=== PATIENT | female | born 1965 | race Caucasian/White ===

== ENCOUNTER 2024-11-06 16:01 | Emergency (ER) | payer BC, SELFPAY ==
--- NOTE | 2024-11-06 16:07 | ED.FEMALEGU ---
HPI - Female Genitourinary General Chief complaint: Urogenital-Female Stated complaint: possible UTI Time Seen by Provider: 11/06/24 16:20 Source: patient Mode of arrival: ambulatory Limitations: no limitations History of Present Illness HPI Narrative: Nany is 59-year-old female patient presenting to the clinic today with complaints of possible urinary tract infection. She reports her symptoms started this morning with some lower abdominal pressure/pain. States she then developed some urinary burning and urinary frequency. Denies any fevers, chills, or body aches. Does report some low back aching. Related Data Home Medications ?Medication ?Instructions ?Recorded ?Confirmed ?Last Taken ?Type amiodarone 200 mg tablet mg 11/06/24 Unknown History amlodipine 5 mg tablet mg 11/06/24 Unknown History apixaban 5 mg tablet (Eliquis) mg 11/06/24 Unknown History atorvastatin 80 mg tablet mg 11/06/24 Unknown History escitalopram oxalate 10 mg tablet mg 11/06/24 Unknown History furosemide 40 mg tablet mg 11/06/24 Unknown History glipizide 5 mg tablet, extended mg PO 11/06/24 Unknown History release 24 hr insulin glargine U-300 conc 300 unit subcut 11/06/24 Unknown History unit/mL (3 mL) subcutaneous pen (Toujeo Max U-300 SoloStar) metformin 500 mg tablet,extended mg PO 11/06/24 Unknown History release 24 hr metoprolol tartrate 25 mg tablet mg 11/06/24 Unknown History Allergies Allergy/AdvReac Type Severity Reaction Status Date / Time No Known Allergies Allergy Verified 11/06/24 16:19 Review of Systems Review of Systems: Pertinent positives per HPI. Patient denies any fever, chills, rash, headache, visual changes, dizziness, cough, runny nose, sore throat, shortness of breath, chest pain, palpitations, nausea, vomiting, diarrhea, constipation, abdominal pain, or any urinary issues. PMFSH Comments At the time of my signature, I reviewed and agree with the nursing past medical, surgical, social, and family history. There is no relevant family history pertinent to the patient complaint. Exam Narrative: General: Well-developed, obese, in no apparent distress. Head: Normocephalic, atraumatic. Cardio: Regular rate and rhythm, s1 and s2 normal, no murmur appreciated. Resp: Clear to auscultation bilaterally, no rhonchi, rales, wheezing or rubs. Abdomen: Soft, pliable, bowel sounds present in all quadrants, tender to palpation over the suprapubic bladder, no organomegly, no CVAT tenderness. Course Course Emergency Course: Portions of this record may have been created with voice recognition software. Level of Care: Express Care Visit Vital Signs Vital signs: Vital Signs Temperature 36.7 C 11/06/24 16:14 Pulse Rate 66 11/06/24 16:14 Respiratory Rate 18 11/06/24 16:14 Blood Pressure 166/82 H 11/06/24 16:14 Pulse Oximetry 97 11/06/24 16:14 Oxygen Delivery Room Air 11/06/24 16:14 Temperature 36.7 C 11/06/24 16:14 Pulse Rate 66 11/06/24 16:14 Respiratory Rate 18 11/06/24 16:14 Blood Pressure 166/82 H 11/06/24 16:14 Pulse Oximetry 97 11/06/24 16:14 Oxygen Delivery Room Air 11/06/24 16:14 Vital signs reviewed MDM - Female Genitourinary MDM Narrative Medical decision making narrative: At the time of visit patient is resting comfortably on the exam table. Patient appears to be nontoxic. Labs: UA positive for leukocytes, protein, blood, and glucose. We will send urine for culture Plan: I suspect patient has a urinary tract infection. Prescription for Bactrim was sent to the pharmacy. Supportive measures were discussed with the patient and they voiced understanding discharge instructions and agrees to treatment plan. Return precautions reviewed Differential Diagnosis Differential diagnosis: Likely urinary tract infection and cystitis Lab Data Labs: Lab Results 11/06/24 Range/Units 16:25 POC Urine Color Yellow POC Urine Clarity Cloudy POC Urine pH 6.0 POC Ur Specif Elkins 1.030 POC Urine Protein 3+ (Negative) POC Ur Glucose (UA) 1+ (Negative) POC Urine Ketones Negative (Negative) POC Urine Blood 2+ (Negative) POC Urine Nitrite Negative (Negative) POC Urine Bilirubin Negative (Negative) POC Urine Urobilinogen 0.2 POC U Leukocyte Esteras 1+ (Negative) Discharge Plan Discharge Clinical Impression: Urinary tract infection Qualifiers: Urinary tract infection type: acute cystitis Hematuria presence: with hematuria Qualified Code(s): N30.01 - Acute cystitis with hematuria Patient Disposition: Home, Self-Care Condition: Stable Instructions: Antibiotic Form, Urinary Tract Infection in Women (ED) Additional Instructions: Urinalysis positive for bacteria, blood, protein, glucose. We will send urine for culture. Take Bactrim as prescribed Increase fluids and stay well hydrated Wipe front to back. May use wet wipes. Avoid tub baths If sexually active- pee before and after intercourse. Wear cotton panties Avoid tight clothing up against the genitals Follow up with your PCP in 1 week if symptoms persist. Patient Language: Icelandic Prescriptions: New sulfamethoxazole-trimethoprim [Bactrim DS] 800-160 mg tablet 1 tablet PO Q12H 7 Days Qty: 14 0RF No Action furosemide 40 mg tablet atorvastatin 80 mg tablet amiodarone 200 mg tablet glipizide 5 mg tablet extended release 24hr PO amlodipine 5 mg tablet metformin 500 mg tablet extended release 24 hr PO escitalopram oxalate 10 mg tablet metoprolol tartrate 25 mg tablet Eliquis 5 mg tablet insulin glargine U-300 conc [Toujeo Max U-300 SoloStar] 300 unit/mL (3 mL) insulin pen SUBCUT Follow-up/Referrals: Danny,MIKKI Luo [Primary Care Provider] - Time of Disposition: 16:27 Quality NIHSS Nursing Documentation ED NIHSS nursing documentation: reviewed/agree
[2024-11-06 16:14] VITALS: BP 166/82; PULSE 66; RESP 18; TEMP 36.7; O2SAT 97
[2024-11-06 16:26] LABS: EDUAAPPEAR Cloudy; EDUABILI Negative (Negative); EDUABLOOD 2+ (Negative); EDUACOLOR1 Yellow; EDUAGLUCOSE 1+ (Negative); EDUAKETONE Negative (Negative); EDUALEUKO 1+ (Negative); EDUANITRATE Negative (Negative); EDUAPROTEIN 3+ (Negative); EDUAUROBILI 0.2
--- OUTSIDE RECORDS SUMMARY | 2024-11-06 16:52 | XMS_ITS | Encounter Summary ---
Author Organization [facility] Address [address] [place] [address] Phone Care Team Providers Care Surg Rn Name Role Phone Sammi Meadows APRN, CNP Primary Care Provid er Ileana Caceres MD Unavailable [phone] Flakito Carr MD Unavailable [phone] Sammi Meadows APRN, CNP Primary Care Provid er Encounter Details Date Type Department Care Team (Late st Contact Info) Description 12/01/2020 Telephone [facility] [address] [place] [address] Flakito Carr MD [address] [address] Social History Tobacco Use Types Packs/Day Years Used Date Smoking Tobacco: Never Smokeless Tobacco: Never Alcohol Use Standard Drinks/Week Comments Yes 0 (1 standard drink = 0.6 oz pur e alcohol) 1x a month PHQ-2 Answer Date Recorded Total Score - Questions 1-9 1 04/2021 Education Answer Date Recorded What is the highest level of school you have completed or the highest degree you have received? 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 Erwin to be seen at the [place] office. documented in this encounter Plan of Treatment Not on file documented as of this encounter Visit Diagnoses Not on filedocumented in this encounter Additional Health Concerns Assessment Noted Time PHQ-9 Depression Total Score: 1 09/10/19 21 10:13 AM MARKETING/SALES PERSON documented as of this encounter Care Teams Surg Rn Relationship Specialty Start Date End Date Sammi Meadows APRN REDUCER PCP - General Advanced Practice Nurse 08/25/20 02/03/22 Sammi Meadows APRN REDUCER [address] [place] [address] PCP - General Advanced Practice Nurse 03/15/22 Ileana Caceres MD [address] [address] Referring Provider Colon & Rectal Surgery 08/25/20 Flakito Carr MD [address] [place] [id number] Consulting Physician Oncology 08/25/20 documented as of this encounter
--- OUTSIDE RECORDS SUMMARY | 2024-11-06 16:52 | XMS_ITS | Encounter Summary ---
Author Organization [facility] Address [address] [place] [address] Care Team Providers Care Parent Educator Name Role Phone None, Provider Primary Care Provider Unavaila Sammi Bautista CAMPAIGN WORKER Primary Care Provider Unav ailable Inocencia Castillo [facility] Primary Care Provider + Shakeel Plaza MD Unavailable [phone] Amy Newman OTR Unavailable [phone] Lia Charles [facility] Primary Care Provider + Madisyn Delgado CAMPAIGN WORKER Primary Care Provider [phone] Encounter Details Date Type Department Care Team (Late st Contact Info) Description 04/28/2017 Results Notification [facility] [address] [place] [address] Chet Connors MD [address] [address] Social History Tobacco Use Types Packs/Day Years Used Date Smoking Tobacco: Never Assessed Comments Unknown Sex and Gender Information Value Date Recorded Sex Assigned at Female 10/31/2024 10:43 AM PERSONAL FINANCIAL PLANNER Legal Sex Female 6:38 AM CDT Gender Identity Not on file Sexual Orientation Not on file documented as of this encounter Plan of Treatment Upcoming Encounters Date Type Department Care Team (Late st Contact Info) Description 11/07/2024 10:30 AM PERSONAL FINANCIAL PLANNER Telephone [facility] [address] [place] [address] Kendra Loyola MD [facility]. [facility] [address] [place], [place] [address] 11/12/2024 9:20 AM CDT Office Visit [facility] [place] [address] [facility] [address] [place], [place] [address] Madisyn Delgado NP [address] [place] [address] [place] [address] 01/20/2025 1:45 PM CDT Office Visit [facility] [address] [place] [address] Shakeel Plaza MD [facility]. [facility] [address] [place], [place] [address] 04/27/2025 3:15 PM CDT Office Visit [facility] [address] [place] [address] Kendra Loyola MD [facility]. [facility] [address] [place] [address] documented as of this encounter Visit Diagnoses Not on filedocumented in this encounter Additional Health Concerns Infection Onset Date Last Indicated Resolved Time COVID-19 Rule Out 04/22/2020 04/22/2020 04/23/2020 7:54 AM CDT COVID-19 Rule Out 09/17/2020 09/17/2020 09/18/2020 6:42 PM PERSONAL FINANCIAL PLANNER COVID-19 Rule Out 11/12/2020 11/12/202011/1311/13/2020 9:41 AM PERSONAL FINANCIAL PLANNER COVID-19 Rule Out 04/30/2024 04/30/2024 04/30/2024 3:53 PM CDT COVID-19 Confirmed 04/30/2024 04/30/2024 8:28 AM CDT documented as of this encounter Care Teams Parent Educator Relationship Specialty Start Date End Date None, Provider, PCP - General 04/22/20 05/04/20 Sammi Meadows, CAMPAIGN WORKER PCP - General NURSE PRACTITIONER 05/05/20 09/21/21 Inocencia Castillo, [facility] PCP - General Nurse Practitioner Family 12/02/21 06/21/23 Lia Charles, [facility] [address] [facility], [address] [place] [id number] PCP - General Nurse Practitioner Family 06/22/23 08/22/23 Madisyn Delgado NP [address] [place] [address] PCP - General NURSE PRACTITIONER 08/23/23 Shakeel Plaza MD [facility]. [address] [id number] Consulting Physician CARDIOVASCULAR DISEASE 09/03/21 Amy Newman, [place] [address] Occupational Therapist Occupational Therapy 04/04/22 documented as of this encounter
--- OUTSIDE RECORDS SUMMARY | 2024-11-06 16:52 | XMS_ITS | Encounter Summary ---
Author Organization [facility] Address [address] [place] [address] Phone Care Team Providers Care Design And Sales Consultant Name Role Phone Ileana Caceres MD Unavailable Flakito Carr MD Unavailable [phone] Sammi Meadows APRN, MEDICAL DEVICE SALES REPRESENTATIVE Primary Care Provid er Reason for Visit * Reason Comments Medication Refill Encounter Details Date Type Department Care Team (Late st Contact Info) Description 08/07/2023 Refill [facility] [address] [address] Gwendolyn Gomez, EDD, MEDICAL DEVICE SALES REPRESENTATIVE [address] [place] [address] Medication Refill Social History Tobacco Use Types Packs/Day Years Used Date Smoking Tobacco: Never Smokeless Tobacco: Never Alcohol Use Standard Drinks/Week Comments Yes 0 (1 standard drink = 0.6 oz pur e alcohol) 1x a month PHQ-2 Answer Date Recorded Total Score - Questions 1-9 0 09/03 Education Answer Date Recorded What is the highest level of school you have completed or the highest degree you have received? 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 Please fill if appropriate. 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, unspecified laterality documented in this encounter Additional Health Concerns Assessment Noted Time PHQ-9 Depression Total Score: 1 06/09/20 21 2:59 PM CDT documented as of this encounter Care Teams Design And Sales Consultant Relationship Specialty Start Date End Date Sammi Meadows, DIRECTOR OF RESERVATIONS, MEDICAL DEVICE SALES REPRESENTATIVE [address] [facility] [address] [place] [address] PCP - General Advanced Practice Nurse 03/15/22 Ileana Caceres MD [address] [address] Referring Provider Colon & Rectal Surgery 08/25/20 Flakito Carr MD [address] [place] [id number] Consulting Physician Oncology 08/25/20 documented as of this encounter
--- OUTSIDE RECORDS SUMMARY | 2024-11-06 16:52 | XMS_ITS | Clinical Summary ---
Author Organization [facility] Address [address] [place] [address] Care Team Providers Care Out Of School Hours Care Worker Name Role Phone Shakeel Plaza MD Unavailable [phone] Madisyn Delgado HOUSEKEEPING/LAUNDRY Primary Care Provider [phone] Allergies Active Allergy Reactions Criticality Noted Date Comments Ceftriaxone Rash Low 12/19/2021 Ciprofloxacin Rash Low 05/31/2017 ? Pt doesn't remember having a reaction to any med. Lisinopril Cough Low 12/24/2023 Sulfa Antibiotics Rash Low 05/31/2017 ?Pt doesn't remember having a reaction to any med. Medications anastrozole 1 MG tablet Take 1 tablet by mouth daily. 04/28/20 21 Active acetaminophen (TYLENOL) 500 MG tablet Take 1 tablet (500 mg total) by mouth every 6 (six) hours as needed for Pain. Active diphenhydrAMINE -APAP (TYLENOL PM) 25-500 MG Tab tablet Take 1 tablet by mouth nightly as needed for Sleep. Active Magnesium Gluconate 250 MG TabIndications: Hypomagnesemia Take 1 tablet by mouth daily. 30 tablet 01/06/20 24 Active furosemide (LASIX) 40 MG tablet Take 1 tablet (40 mg total) by mouth every other day. 30 tablet 3 02/14/20 24 Active metFORMIN ER (GLUCOPHAGE-XR) 500 MG 24 hr tabletIndicatio ns:Type 2 diabetes mellitus with hyperglycemia, without long-term current use of insulin ([facility]/HCC HHS/HCC) Take 1 tablet (500 mg total) by mouth 2 (two) times a day. 180 tablet 1 03/03/20 24 Active Continuous Glucose Sensor (FREESTYLE AMANDA 3 SENSOR) MiscIndications :Type 2 diabetes mellitus with hyperglycemia, with long-term current use of insulin (CMS/HCC HHS/HCC) Apply 1 Application topically continuous. 1 each 3 03/17/20 24 Active insulin aspart (NOVOLOG FLEXPEN) 100 UNIT/ML injection (PEN)Indication s:Type 2 diabetes mellitus with hyperglycemia, with long-term current use of insulin (CMS/HCC HHS/HCC) Inject 10 Units into the skin 3 (three) times daily before meals. 3 mL 3 03/17/20 24 Active apixaban (ELIQUIS) 5 MG tablet Take 1 tablet (5 mg total) by mouth 2 (two) times daily. 180 tablet 1 07/02/20 24 Active metoprolol tartrate (LOPRESSOR) 25 MG tabletIndicatio ns:Essential hypertension TAKE 2 TABLETS(50 MG) BY MOUTH TWICE DAILY. MAKE AN APPOINTMENT 60 tablet 08/18/20 24 Active glipiZIDE XL 5 MG 24 hr tabletIndicatio ns:Type 2 diabetes mellitus with hyperglycemia, with long-term current use of insulin ([facility] HHS/HCC) Take 1 tablet (5 mg total) by mouth daily with breakfast. Do not break or crush tablet 90 tablet 1 08/22/20 24 Active Insulin Glargine, 2 Unit Dial, (TOUJEO MAX SOLOSTAR) 300 UNIT/ML Solution Pen-injectorInd ications:Type 2 diabetes mellitus with hyperglycemia, with long-term current use of insulin ([facility]/HCC HHS/HCC) Inject 24 Units into the skin nightly at bedtime. 3 mL 5 08/22/20 24 Active Continuous Glucose Sensor (FREESTYLE AMANDA 3 SENSOR) MiscIndications :Type 2 diabetes mellitus with hyperglycemia, with long-term current use of insulin ([facility]/HCC HHS/HCC) Apply 1 Application topically continuous. Check blood sugars three times a day before meals and as needed 1 each 3 08/22/20 24 Active Continuous Glucose Wire Annealer (FREESTYLE AMANDA 3 READER) DeviceIndicatio ns:Type 2 diabetes mellitus with hyperglycemia, with long-term current use of insulin (CMS/HCC HHS/HCC) Apply 1 Application topically continuous. Check blood sugars three times a day before meals and as needed 1 each 3 08/22/20 24 Active atorvastatin (LIPITOR) 80 MG tablet Take 1 tablet (80 mg total) by mouth nightly at bedtime. 30 tablet 10/16/19 25 Active amLODIPine (NORVASC) 5 MG tabletIndicatio ns:Essential hypertension TAKE 1 TABLET(5 MG) BY MOUTH DAILY 30 tablet 10/16/19 25 Active escitalopram (LEXAPRO) 10 MG tablet Take 1 tablet (10 mg total) by mouth daily. Active amiodarone (PACERONE) 200 MG tablet Take 1 tablet (200 mg total) by mouth daily. 90 tablet 1 10/31/19 25 Active vitamin D3 (CHOLECALCIFERO L) 1.25 mg capsuleIndicati ons:Vitamin D deficiency Take 1 capsule (50,000 Units total) by mouth once a week. Takes on Sunday12/26/19 24 2024 Discontinued(P t. elected to discontinue med) amiodarone (PACERONE) 200 MG tablet Take 2 tablets (400mg total by mouth two times a day for 7 days, then 1 tablet (200mg total) by mouth two times a day for 30 days, then 1 tablet (200mg total) by mouth daily. 150 tablet 1 02/14/20 24 2024 Discontinued(R eorder) escitalopram (LEXAPRO) 10 MG tabletIndicatio ns:Anxiety and depression Take 1 tablet (10 mg total) by mouth daily. 90 tablet 1 03/03/20 24 2024 Discontinued(P t. elected to discontinue med) albuterol sulfate HFA 108 (90 Base) MCG/ACT inhalerIndicati ons:Acute cough,COVID-19 Inhale 2 puffs into the lungs every 4 (four) hours as needed for Wheezing or Shortness of breath. 18 g 04/30/20 24 2024 Discontinued(P t. elected to discontinue med) atorvastatin (LIPITOR) 80 MG tablet TAKE 1 TABLET(80 MG) BY MOUTH DAILYNEED TO CALL FOR APPOINTMENT 30 tablet 09/16/19 25 2024 Discontinued amLODIPine (NORVASC) 5 MG tabletIndicatio ns:Essential hypertension TAKE 1 TABLET(5 MG) BY MOUTH DAILY 30 tablet 09/16/19 25 2024 Discontinued Active Problems Problem Noted Date Diagnosed Date Anxiety and depression 03/17/2024 Overview (08/24/2024): Is not taking the escitalopram 10 mg daily anymore. Quit taking. No good reason but overall doing well. Is retired now so less stress. Assessment & Plan (08/24/2024 7:57 AM BUCKLE ASSEMBLER): Pt informed to either begin taking or not but to be consistent with or without taking d/t side effects that can occur is not taking as directed. Will need to update PHQ-9 at next visit. Pt is doing better she states. Assessment & Plan (03/17/2024 12:51 PM CDT): Doing better at this time. Resume citalopram 10 mg daily. No changes at this time.Will need update PHQ-9 and SOPHIA-7 at next visit. Hypomagnesemia 01/04/2024 Subclinical hypothyroidism 01/04/2024 Assessment & Plan (08/24/2024 7:49 AM BUCKLE ASSEMBLER): Will continue to monitor. No tx necessary at this time. Ketonuria 12/20/2023 Nonrheumatic mitral valve regurgitation 03/10/20 History of lumpectomy of right breast 01/23/2022 Choledocholithiasis 12/14/2021 DCIS (ductal carcinoma in situ) of breast 2020 Overview (08/24/2024): Was following with oncology Dr. Owen and was also following with Dr. Mueller but pt has not been seen since . No breast imaging since 2021. Pt had been taking anastrozole. Scheduled an appointment in Sep. Assessment & Plan (08/24/2024 7:38 AM BUCKLE ASSEMBLER): Pt due for mammogram. Order placed and pt is scheduled for a follow up with DR. Owen Sep 11. Discussed the importance of keeping her appointments. CAD (coronary artery disease) 11/09/2020 Dyslipidemia 11/09/2020 Overview (08/24/2024): Taking atorvastatin 80mg nightly and tolerates well. Assessment & Plan (08/24/2024 7:40 AM BUCKLE ASSEMBLER): Chronic condition, will check lipid panel. No changes needed at this time. Resume atorvastatin 80mg nightly. Encourage following a healthy well balance diet. Limit saturated and trans fats. Encourage to get plenty of lean meats in your diet and grilled fish. Recommend eating at least 2 servings of fruits and vegetables per day. Encourage to limit sugar, processed foods, and large amount of carbohydrates. NSTEMI (non-ST elevated myoc ardial infarction) ([facility]) 04/22/2020 Chronic anticoagulation 07/06/2017 Class 2 severe obesity due t o excess calories with serious comorbidity and body mass index (BMI) of 37.0 to 37.9 in adult ([facility]) 06/01/2017 Assessment & Plan (08/24/2024 7:31 AM BUCKLE ASSEMBLER): Encourage diet and lifestyle changes to assist with weight loss. Essential hypertension 05/08/2017 Overview (08/24/2024): Chronic condition. Follows with cardio Dr. Plaza and . Denies chest pain, palpitations, shortness of breath, dizziness, lightheadedness or lower extremity edema. Denies any orthopnea or PND. Has not been checking her bp's at home. Assessment & Plan (08/24/2024 7:41 AM BUCKLE ASSEMBLER): Goal for BP to stay below 140/90. Encourage lifestyle modifications to include healthy eating, decrease salt and caffeine in diet, routine exercise, and weight loss. Will recheck BP in 2 weeks at follow up. Paroxysmal atrial fibrillation ([facility]) 04/20/2017 Overview (08/24/2024): Hx of A-Fib. Had a cardiac ablation on 05/15/24. Follows with Dr. Loyola. Pt on Metoprolol and Eliquis 5mg BID. Pt's note from Dr. Loyola reports pt to wean off Amiodarone. Is not currently taking She thinks she she still goes into A-Fib at times. Denies any med side effects. Assessment & Plan (08/24/2024 7:31 AM BUCKLE ASSEMBLER): Currently not in A-Fib. Continue to monitor symtpoms and following with cardio as directed for med management. Discussed the importance of med compliance. Type 2 diabetes mellitus wit h hyperglycemia, with long-term current use of insulin ([facility]) 04/03/2017 Overview (08/24/2024): Last A1c 13.2 in December Pt stopped taking her diabetic medications. No clear reasoning why. Pt is aware how to use. Denies any side effects. She reports is retired now and is ready to get back on track. Has more time no to focus on herself. In the past when pt was overwhelmed she would stop all of her care. Has not been checking her blood sugars, not using her freestyle amanda. Has chronic polyuria, polydipsia and polyphagia. Is overdue for diabetic eye exam. Denies any neuropathy in her feet. Assessment & Plan (08/24/2024 7:48 AM BUCKLE ASSEMBLER): A1C 12.3 today. Pt has been noncompliant and has hx of noncompliance. Informed pt that I would help her the best that I can getting her back on her medication but if she continues to not be noncompliant I would not be able to continue her care. Pt understands the health risks of her diabetes being this out of control. She understood and verbalized understanding. I have referred pt to endo as well but even under their care what they recommend pt will have to be compliant with to get A1C below 7 which pt has not been in a very long time. Will begin pt back on her Toujeo daily first and will add on glipizide. Discussed how to take and side effects Will add on short acting lucie log again blood sugars permitting in place of glipizide once pt is complaint and I can review her blood sugars Dexcom reordered to begin using. Urine microalbumin-08/22/24 elevated- discuss ARB (SGLT2 may not be safe at this time with A1C so high and d/t her past hx of necrosis) Foot exam - 08/23/23 On statin Unable to take NAT d/t cough Assessment & Plan (03/17/2024 12:52 PM CDT): Diabetes is still not controlled as A1c is 13.5. Show decision making with treatment options as patient will also need to be compliant with taking her medications and to be checking her blood sugars prior to eating. At this time due to uncontrolled diabetes and A1c being so high we will add on short acting insulin 10 units 3 times daily prior to meals. Monitor for symptoms of hypoglycemia. Patient to adjust Toujeo from 24 to 28 units. Diabetes educational printout given to patient as well as a blood sugar log so she can track her blood sugars. Patient also interested in freestyle so we will place this order. Patient was instructed to follow up in office to be sure she is compliant with taking her medications and if she has any further questions or concerns in 1 to 2 weeks. Would like to get patient back on a GLP-1 but I do not want to overwhelm patient with starting multiple new medications at once. Goal for blood sugars to be between 80-130 fasting and 180 or less two hours after eating. Be sure you have a diabetic eye exam yearly. Encourage daily foot checks, avoid walking around barefoot. Goal for A1C to below 7 Urine microalbumin-12/20/2023 Foot exam - 08/23/23 On statin Unable to take NAT d/t cough Resolved Problems Problem Noted Date Diagnosed Date Resolved Date Scalp abscess 01/04/2024 08/24/2024 Abscess 12/24/2023 08/24/2024 Wound drainage 12/20/2023 01/04/2024 Atypical ductal hyperplasia of right breast 09/15/2020 01/08/2022 Abnormal mammogram of right breast 07/17/2020 01/08/2022 Necrotizing fasciitis ([facility]/HCC [facility]) 04/03/2017 01/08/2022 Encounters Date Type Department Care Team Description 10/31/2024 10:45 AM BUCKLE ASSEMBLER Office Visit Jair [facility], [address] [address] Carmelo Loyola MD Follow Up; Atrial Fibrillation 10/31/2024 Travel 10/16/2024 MyChart Message Enc [address] [place] [address] Anh [facility] Provider Appointment Needed 09/25/[address] [place] [address] Madisyn Delgado NP Appointment Reminder 08/22/2024 8:00 AM BUCKLE ASSEMBLER Office Visit [address] [place] [address] Madisyn Delgado NP Follow Up (Patient presents to follow up on chronic conditions) 08/22/2024 Travel from Last 3 Months Immunizations Name Administration Dates Next Due Influenza Adult (Generic) 05/26/2022,06/20/2017 Pneumococcal (Pneumovax 23) 09/24/2020 Family History Medical History Relation Comments Diabetes Father Heart Father Diabetes Maternal Grandmother atrial fibrillation Mother Breast Cancer Sister Cancer Sister breast cancer Relation Status Comments Father Maternal Grandmother Mother Alive Sister Alive Social History Tobacco Use Types Packs/Day Years Used Date Smoking Tobacco: Never Passive Smoke Exposure: Never Smokeless Tobacco: Never Tobacco Cessation:Counseling Given: Not Answered Alcohol Use Standard Drinks/Week Comments Yes 0 (1 standard drink = 0.6 oz pur e alcohol) 1 drink per month [facility] Utilities Answer Date Recorded In the past 12 months has [facility] [employer], oil, or water [employer] threatened to shut off services in your home? No 12/24/2023 Humiliation, Afraid, Rape, and Kick questionnair e Answer Date Recorded Within the last year, have y ou been afraid of your partner or ex-partner? No 12/24/2023 Within the last year, have y ou been humiliated or emotionally abused in other ways by your partner or ex-partner? No Within the last year, have y ou been kicked, hit, slapped, or otherwise physically hurt by your partner or ex-partner? No 12/24/2023 Within the last year, have y ou been raped or forced to have any kind of sexual activity by your partner or ex-partner? No 12/24/2023 AUDIT-C Answer Date Recorded Frequency of Alcohol Consumption Not on file 05/06/2020 Q2: How many drinks containi ng alcohol do you have on a typical day when you are drinking? 1 or 2 05/06/2020 Q3: How often do you have si x or more drinks on one occasion? Never 05/06/2020 Overall Financial Resource Strain (CARDIA) Answe r Date Recorded How hard is it for you to pa y for the very basics like food, housing, medical care, and heating? Not hard at all 12/24/2023 PHQ-2 Answer Date Recorded Patient Health Questionnaire-2 Score 4 03/03/2024 Hunger Vital Sign Answer Date Recorded Within the past 12 months, y ou worried that your food would run out before you got the money to buy more. Never true 12/24/19 24 Within the past 12 months, t he food you bought just didn't last and you didn't have money to get more. Never true 12/24/2023 PRAPARE - Transportation Answer Date Re corded In the past 12 months, has l ack of transportation kept you from medical appointments or from getting medications? No 12/03 In the past 12 months, has l ack of transportation kept you from meetings, work, or from getting things needed for daily living? No 12/24/2023 Housing Stability Vital Sign Answer Justin e Recorded In the last 12 months, was t here a time when you were not able to pay the mortgage or rent on time? No 12/24/2023 In the past 12 months, how m any times have you moved where you were living? 1 12/24/2023 At any time in the past [address] [facility], were you homeless or living in a snf (including now)? No 12/24/2023 Comments No Sex and Gender Information Value Date Recorded Sex Assigned at Female 10/31/2024 10:43 AM BUCKLE ASSEMBLER Legal Sex Female 6:38 AM CDT Gender Identity Not on file Sexual Orientation Not on file Last Filed Vital Signs Vital Sign Reading Time Taken Comments Blood Pressure 124/78 10/31/2024 11:07 AM BUCKLE ASSEMBLER Pulse 70 08/22/2024 8:10 AM BUCKLE ASSEMBLER Temperature 36.7 C (98 F) 08/22/2024 8:10 AM BUCKLE ASSEMBLER Respiratory Rate 18 08/22/2024 8:10 AM BUCKLE ASSEMBLER Oxygen Saturation 97% 10/31/2024 11:07 AM BUCKLE ASSEMBLER Inhaled Oxygen Concentration - - Weight 103 kg (227 lb) 10/31/2024 11:07 AM BUCKLE ASSEMBLER Height 162.6 cm (5' 4 ) 10/31/2024 11:07 AM BUCKLE ASSEMBLER Body Mass Index 38.96 10/31/2024 11:07 AM BUCKLE ASSEMBLER Plan of Treatment Upcoming Encounters Date Type Department Care Team (Late st Contact Info) Description 11/07/2024 10:30 AM BUCKLE ASSEMBLER Telephone [facility], [facility] [address] [place], [place] [id number] Carmelo Loyola MD [facility]. [facility] [address] [place], [place] [address] 11/12/2024 9:20 AM CDT Office Visit [facility] [place] [address] [place] [address] Madisyn Delgado, YAYA [address] [place] [address] 01/20/2025 1:45 PM CDT Office Visit [facility], [facility] [address] [place] [address] Shakeel Plaza MD [facility]. [facility] [address] [place], [place] [address] 04/27/2025 3:15 PM CDT Office Visit [facility], [facility] [address] [place], [place] [address] Carmelo Loyola MD [facility]. [facility] [address] [place], [place] [id number] Health Maintenance Due Date Last Done Comments Cervical Cancer Screening Pap Smear (Age 30 to 64) Every 3 Years 1965 Colorectal Cancer Screening Colonoscopy (10 Years) 1963 Diabetes: Retinopathy Eye Exam 1981 DTaP, Tdap and Td Vaccines (1 - Tdap) 1982 Cervical Cancer Screening Pap with HPV Testing (Age 30 to 64) Every 5 Years 1993 Cervical Cancer Screening with HPV 1993 Zoster Vaccines (1 of 2) 2013 Pneumococcal Vaccine: Pediatrics (0 to 5 Years) and At-Risk Patients (6 to 64 Years) (2 of 2 - PCV) 09/24/2021 09/24/2020 RSV Immunization or 60+ Years (1 - Risk 60-74 years 1-dose series) 2023 Mammogram Screening 03/08/2024 03/08/2022, 08/29/2021, 08/17/2020, Additional history exists COVID-19 Vaccine ( season) 2024 05/26/2022, 08/11/2021, 11/08/2020 Influenza Adult (#1) 2024 05/26/2022, 06/20/20 17 Annual Physical 08/23/2024 08/23/2023 PHQ-2 (Physician [place]) 09/03/2024 03/03/2024 Hemoglobin A1C 11/20/2024 08/22/2024, 03/03, 12/25/2023, Additional history exists Kidney Health Evaluation 08/22/2025 08/22/2024 Lipid Panel 08/22/2025 08/22/2024, 08/04, 01/03/2022, Additional history exists Hepatitis C Completed 08/23/2023 Meningococcal B Vaccine Aged Out No l onger eligible based on patient's age to complete this topic Meningococcal Vaccine Aged Out No fernando juan eligible based on patient's age to complete this topic RSV Immunizations Under 20 Months Aged Out No longer eligible based on patient's age to complete this topic Goals Goal Patient Goal Type Associated Problems Recent Progress Patient-Stated? Author Patient will return to prior living situation and remain independent in ADLs upon discharge from hospital General No Guevara, Елена A, sports athletic trainer Procedure Name Priority Date/Time Associated Diagnosis Comments ELECTROCARDIOGRAM (NON MIDMARK ACQUIRED) Routine 10/31/2024 11:09 AM BUCKLE ASSEMBLER Essential hypertension ALBUMIN URINE RANDOM W/CREATININE Routine 08/22/2024 9:00 AM BUCKLE ASSEMBLER Type 2 diabetes mellitus with hyperglycemia, with long-term current use of insulin (CMS/HCC HHS/HCC) COLLECTION VENOUS BLOOD VENIPUNCTURE Routine 08/22/2024 8:56 AM BUCKLE ASSEMBLER Type 2 diabetes mellitus with hyperglycemia, with long-term current use of insulin (CMS/HCC HHS/HCC) THYROXINE, FREE (FT4) Routine 08/22/2024 8:56 AM BUCKLE ASSEMBLER Screening for thyroid disorder Essential hypertension CBC W/DIFF AUTOMATED Routine 08/22/2024 8:56 AM BUCKLE ASSEMBLER Type 2 diabetes mellitus with hyperglycemia, with long-term current use of insulin (CMS/HCC HHS/HCC) Essential hypertension COMPREHENSIVE METABOLIC PANEL Routine 08/22/2024 8:56 AM BUCKLE ASSEMBLER Type 2 diabetes mellitus with hyperglycemia, with long-term current use of insulin (CMS/HCC HHS/HCC) Essential hypertension LIPID PANEL Routine 08/22/2024 8:56 AM BUCKLE ASSEMBLER Dyslipidemia TSH W/REFLEX Routine 08/22/2024 8:56 AM BUCKLE ASSEMBLER Screening for thyroid disorder Essential hypertension COLLECT.CAPILLARY (FNGR,HEEL,EAR) Routine 08/22/2024 8:10 AM BUCKLE ASSEMBLER Type 2 diabetes mellitus with hyperglycemia, with long-term current use of insulin (CMS/HCC HHS/HCC) HEMOGLOBIN, GLYCOSYLATED Routine 08/22/2024 Type 2 diabetes mellitus with hyperglycemia, with long-term current use of insulin (CMS/HCC HHS/HCC) HEPATITIS C ANTIBODY Routine 08/23/2023 9:31 AM BUCKLE ASSEMBLER Need for hepatitis C screening test MG DIAG ADD VIEW W ALESSANDRA RT Routine 03/08/2022 9:40 AM CDT Atypical ductal hyperplasia of right breast from Last 3 Months or Most Recently Relevant to Health Maintenance Results * ELECTROCARDIOGRAM (10/31/2024 11:09 AM BUCKLE ASSEMBLER) 10/31/2024 11:0 9 AM BUCKLE ASSEMBLER Narrative [facility] C[facility] - 11/02/2024 7:29 AM BUCKLE ASSEMBLER Catrina Brock [facility] Test Date: 2024-10-31 Pat Name: [facility] Department: 112 Room: Gender: Female Insurance Job Titles: : 1965 Requested By: CARMELO LOYOLA Order Number: [id number] Reading MD: Alfredo Henry Measurements Intervals [place] Rate: 67 P: 25 DE: 198 QRS: 8 QRSD: 98 T: 25 QT: 405 QTc: 429 Interpretive Statements SINUS RHYTHM WITH OCCASIONAL VENTRICULAR PREMATURE COMPLEXES ANTERIOR MYOCARDIAL INFARCTION, OF INDETERMINATE AGE INFERIOR MYOCARDIAL INFARCTION, PROBABLY OLD Since prior tracing, occasional PVCs now present LE ASSEMBLER Procedure Note Alfredo Henry MD - 11/02/2024 Catrina Brock [facility] Test Date: 2024-10-31 Pat Name: [facility] Department: 112 Room: Gender: Female Insurance Job Titles: : 1965 Requested By: CARMELO LOYOLA Order Number: [id number] Reading : Alfredo Henry Measurements Intervals [place] Rate: 67 P: 25 DE: 198 QRS: 8 QRSD: 98 T: 25 QT: 405 QTc: 429 Interpretive Statements SINUS RHYTHM WITH OCCASIONAL VENTRICULAR PREMATURE COMPLEXES ANTERIOR MYOCARDIAL INFARCTION, OF INDETERMINATE AGE INFERIOR MYOCARDIAL INFARCTION, PROBABLY OLD Since prior tracing, occasional PVCs now present LE ASSEMBLER us Carmelo Loyola MD PROCEDURES-ORDERABLE NO CHARGE F inal Result [facility] * (ABNORMAL) ALBUMIN/CREATININE RATIO, RANDOM URINE (08/22/2024 9:00 AM BUCKLE ASSEMBLER) MICROALBUMIN (U) 333.7(H) <20 MG/L 08/22/20 4:07 PM BUCKLE ASSEMBLER [facility] CREATININE RANDOM (U) 45.4 MG/DL 08/22/2024 3:22 PM BUCKLE ASSEMBLER [facility] ALBUMIN/CREAT RATIO 735.0(H) <30 MG/G 08/22/2024 4:07 PM BUCKLE ASSEMBLER [facility] URINE SPECIMEN / Unknown 08/22/2024 9:00 AM BUCKLE ASSEMBLER us Madisyn Delgado HOUSEKEEPING/LAUNDRY URINE ORDERABLES Final Re sult Performing Organization Address [facility] Co de Phone Number [facility] [address] [place] [id number], [place] [phone] * (ABNORMAL) TSH W/REFLEX (08/22/2024 8:56 AM BUCKLE ASSEMBLER) [facility] TSH 3.973(H) 0.358 - 3.740 uIU/ML 08/22/2024 4:12 PM BUCKLE ASSEMBLER [facility] 08/22/2024 8:56 AM BUCKLE ASSEMBLER us Madisyn Delgado HOUSEKEEPING/LAUNDRY LABORATORY Final Res ult Performing Organization Address [facility] Co de Phone Number [address] [address] [place] [address], [place] [phone] * (ABNORMAL) COMPREHENSIVE METABOLIC PANEL (08/22/2024 8:56 AM BUCKLE ASSEMBLER) [facility] SODIUM S/P/B 137 136 - 145 MMOL/L 08/22/2024 4:12 PM BUCKLE ASSEMBLER [facility] POTASSIUM S/P/B 4.6 3.5 - 5.1 MMOL/L 08/22/2024 4:12 PM BUCKLE ASSEMBLER [facility] Comment:MODERATE HEMOLYSIS CHLORIDE S/P/B 99 98 - 107 MMOL/L 08/22/2024 4:12 PM [facility] CO2 27.1 21 - 32 MMOL/L 08/22/2024 4:12 PM [facility] GLUCOSE 414(H) 70 - 99 MG/DL 08/22/2024 4:12 PM [facility] BUN 26(H) 7 - 18 MG/DL 08/22/2024 4:12 PM [facility] CREATININE S/P/B 0.90 0.55 - 1.02 MG/DL 08/22/2024 4:12 PM [facility] CALCIUM S/P/B 9.1 8.4 - 10.5 MG/DL 08/22/2024 4:12 PM [facility] BILIRUBIN TOTAL S/P/B 1.5(H) 0.2 - 1.0 MG/DL 08/22/2024 4:12 PM [facility] ALKALINE PHOSPHATASE S/P/B 76 50 - 130 U/L 08/22/2024 4:12 PM [facility] AST 20 15 - 37 U/L 08/22/2024 4:12 PM [facility] ALT 19 14 - 59 U/L 08/22/2024 4:12 PM [facility] TOTAL PROTEIN S/P/B 6.8 6.4 - 8.2 G/DL 08/22/2024 4:12 PM [facility] ALBUMIN S/P/B 3.3(L) 3.4 - 5.0 G/DL 08/22/2024 4:12 PM [facility] ANION GAP 10.9 5 - 15 MMOL/L 08/22/2024 4:12 PM [facility] Comment:REFERENCE RANGE NOT ESTABLISHED OSMOLALITY (CALC) 306 MOSM/KG 024 4:12 PM [facility] Comment:REFERENCE RANGE NOT ESTABLISHED GFR ESTIMATE 73(L) >90 ML/MIN/1. 73 M2 08/22/2024 4:12 PM BUCKLE ASSEMBLER [facility] [place] GFR NOTES GFR REFERENCE S: 08/22/2024 4:12 PM BUCKLE ASSEMBLER [facility] Comment: THE ESTIMATED GFR IS CALCULATED USING THE 2020 CKD-EPI EQUATION. THE FOLLOWING CATEGORIES FOR GRADING RENAL FUNCTION ARE RECOMMENDED BY THE INTERNATIONAL SOCIETY OF NEPHROLOGY (KDIGO 2012 CLINICAL PRACTICE GUIDELINE). G1,NORMAL OR HIGH: >89 ml/min/1.73 m2 G2,MILDLY DECREASED: 60-89 ml/min/1.73 m2 G3A,MILDLY TO MODERATELY DECREASED: 45-59 ml/min/1.73 m2 G3B,MODERATELY TO SEVERELY DECREASED: 30-44 ml/min/1.73 m2 G4,SEVERELY DECREASED: 15-29 ml/min/1.73 m2 G5,KIDNEY FAILURE: <15 ml/min/1.73 m2 08/22/2024 8:56 AM BUCKLE ASSEMBLER us Madisyn Delgado NP LABORATORY Final Res ult [facility] [place] [address] [place] [address], * LIPID PANEL (08/22/2024 8:56 AM BUCKLE ASSEMBLER) CHOLESTEROL 130 <200 MG/DL 08/22/2024 4:12 PM BUCKLE ASSEMBLER [facility] TRIGLYCERIDES 52 <150 MG/DL 08/22/2024 4:12 PM BUCKLE ASSEMBLER [facility] HDL 63 >40 MG/DL 08/22/2024 4:12 PM BUCKLE ASSEMBLER [facility] [place] LDL-C 57 <100 MG/DL 08/22/2024 4:12 PM BUCKLE ASSEMBLER [facility] [place] VLDL CALCULATION 10 5 - 28 MG/DL 08/22/2024 4:12 PM BUCKLE ASSEMBLER [facility] [place] CHOL/HDL RATIO 2.1 0.0 - 4.0 08/22/2024 4:12 PM BUCKLE ASSEMBLER [facility] LDL/HDL 0.9 0.41 - 2.13 08/22/2024 4:12 PM BUCKLE ASSEMBLER [facility] NON HDL CHOLESTEROL 67 <140 MG/DL 08/22/2024 4:12 PM BUCKLE ASSEMBLER [facility] 08/22/2024 8:56 AM BUCKLE ASSEMBLER us Madisyn Delgado HOUSEKEEPING/LAUNDRY LABORATORY Final Res ult [facility] [address] [place] [address], * (ABNORMAL) CBC W/DIFF AUTOMATED (08/22/2024 8:56 AM BUCKLE ASSEMBLER) WBC 5.18 4.00 - 10.80 x10'3/uL 08/22/2024 2:04 PM [facility] RBC 4.04(L) 4.10 - 5.40 x10'6/uL 08/22/2024 2:04 PM [facility] HGB 12.6 12.0 - 16.0 G/DL 08/22/2024 2:04 PM [facility] HCT 36.1 36.0 - 47.0 % 08/22/2024 2:04 PM [facility] MCV 89.4 78.0 - 100.0 FL 08/22/2024 2:04 PM [facility] MCH 31.2(H) 27.0 - 31.0 PG 08/22/2024 2:04 PM [facility] MCHC 34.9 33.0 - 36.0 G/DL 08/22/2024 2:04 PM [facility] RDW 12.8 11.5 - 14.5 % 08/22/2024 2:04 PM [facility] PLT 263 150 - 350 x10'3/uL 08/22/2024 2:04 PM [facility] MPV 11.8(H) 7.4 - 10.4 FL 08/22/2024 2:04 PM [facility] DIFFERENTIAL TYPE AUTOMATED DIFFERENTIAL 08/22/2024 2:04 PM [facility] NEUTROPHILS % 66.4 % 08/22/2024 2:04 PM [facility] LYMPHOCYTES % 21.4 % 08/22/2024 2:04 PM [facility] MONOCYTES % 7.3 % 08/22/2024 2:04 PM [facility] EOSINOPHILS % 3.9 % 08/22/2024 2:04 PM [facility] BASOPHILS % 0.8 % 08/22/2024 2:04 PM [facility] IMMATURE GRANS % 0.2 % 08/22/2024 2:04 PM [facility] ABS. NEUTROPHILS 3.44 1.60 - 8.30 x10'3/uL 08/22/2024 2:04 PM [facility] ABS. LYMPHOCYTES 1.11 0.80 - 4.70 x10'3/uL 08/22/2024 2:04 PM [facility] ABS. MONOCYTES 0.38 0.00 - 1.50 x10'3/uL 08/22/2024 2:04 PM [facility] ABS. EOSINOPHILS 0.20 0.00 - 0.40 x10'3/uL 08/22/2024 2:04 PM [facility] ABS. BASOPHILS 0.04 0.00 - 0.20 x10'3/uL 08/22/2024 2:04 PM [facility] ABS. IMMATURE GRANULOCYTES 0.01 0.00 - 0.03 x10'3/uL 08/22/2024 2:04 PM [facility] 08/22/2024 8:56 AM BUCKLE ASSEMBLER Madisyn Delgado HOUSEKEEPING/LAUNDRY LABORATORY Final Res ult Performing Organization Address [facility] Co de Phone Number [address] [place] [address], [place] [phone] * THYROXINE, FREE (FT4) (08/22/2024 8:56 AM BUCKLE ASSEMBLER) FREE T4 0.93 0.76 - 1.46 NG/DL 08/22/2024 4:48 PM BUCKLE ASSEMBLER [facility] 08/22/2024 8:56 AM BUCKLE ASSEMBLER Madisyn Delgado HOUSEKEEPING/LAUNDRY LABORATORY Final Res ult Performing Organization Address [facility] de Phone Number [address] [place] [address], [place] [phone] * A1C (BACK OFFICE) (08/22/2024) HGB A1C 12.3 % -[address], [place] 08/22/2024 Madisyn Delgado HOUSEKEEPING/LAUNDRY LABORATORY Final Res ult Performing Organization Address [facility] Co de Phone Number [address] [place] [address] [place] [address], [place] [phone] * HEPATITIS C ANTIBODY (08/23/2023 9:31 AM BUCKLE ASSEMBLER) HEPATITIS C AB NON-REACTI VE NON-REACT BETH 08/23/2023 7:31 PM BUCKLE ASSEMBLER [facility] Comment: ANTIBODIES TO HCV NOT DETECTED. DOES NOT EXCLUDE THE POSSIBILITY OF EXPOSURE TO HCV. 08/23/2023 9:31 AM BUCKLE ASSEMBLER us Madisyn Delgado HOUSEKEEPING/LAUNDRY LABORATORY Final Res ult [facility] [address] [place] [address], [phone] * MG DIAG ADD VIEW W ALESSANDRA RT (03/08/2022 9:40 AM CDT) Anatomical Region Laterality Modality Breast Right Mammography 03/08/2022 9:24 AM CDT Impressions 03/08/2022 9:32 AM CDT IMPRESSION: 1. No mammographic evidence of malignancy. 2. BI-RADS 2 MQSA BI-RADS Categories: Category 0 - needs additional imaging evaluation. Category 1 - negative. Category 2 - benign findings. Category 3 - probably benign findings, but short interval follow-up is recommended. Category 4 - suspicious abnormality and biopsy should be considered though the lesion may well be benign. Category 5 - highly suggestive of malignancy and appropriate action should be taken. A) A negative report should not delay a biopsy if a dominant or clinically suspicious mass is present. B) Adenosis and dense breasts may obscure an underlying neoplasm. C) Study interpreted with computer aided detection. Ordered By: GAURI OWEN Interpreted By: Elgin King, 03/08/2022 9:24 AM Narrative 03/08/2022 9:32 AM CDT IMAGING STUDIES: MG DIAG ADD VIEW W ALESSANDRA RT DATE: 03/08/2022 8:55 AM HISTORY: Atypical ductal hyperplasia of right breast . COMPARISON: 08/29/2021. 06/07/2020 TISSUE TYPE: There are scattered areas of fibroglandular density. DISCUSSION: 1. Diagnostic right breast mammogram with computer-aided detection with 2-D and 3-D imaging and alessandra synthesis.. 2. Postlumpectomy changes in the upper outer quadrant of the posterior right breast. Similar underlying scar formation. 3. No malignant microcalcifications. Moderate overlying skin thickening from patient's radiation therapy. No dominant mass. Right axilla without gross abnormality. us Gauri Owen MD MAMMO Final Resul t from Last 3 Months or Most Recently Relevant to Health Maintenance Insurance Advance Directives Documents on File Type Date Recorded Patient Surface Supply Breathing Apparatus Expl anation Advance Directives and Living Will 04/24/2020 11:26 AM POA for Healthcare signed 04-23-20 * Full Code (Latest Code Status on File) Date Activated Date Inactivated Comments 12/24/2023 11:00 PM 12/27/2023 7:38 PM * Full Code Date Activated Date Inactivated Comments 12/14/2021 8:22 PM 12/19/2021 6:20 PM * Full Code Date Activated Date Inactivated Comments 05/13/2020 9:08 AM 05/15/2020 4:31 PM * Full Code Date Activated Date Inactivated Comments 05/13/2020 8:51 AM 05/13/2020 9:08 AM * Full Code Date Activated Date Inactivated Comments 04/22/2020 6:41 PM 04/24/2020 4:34 PM Care Teams Out Of School Hours Care Worker Relationship Specialty Start Date End Date Madisyn Delgado NP [address] [place] [address] PCP - General NURSE PRACTITIONER 08/23/23 Shakeel Plaza MD [facility]. [address] [address] [place] [address] Consulting Physician CARDIOVASCULAR DISEASE 09/03/21
--- OUTSIDE RECORDS SUMMARY | 2024-11-06 16:52 | XMS_ITS | Encounter Summary ---
Author Organization [facility] Address [address] [place] [address] Care Team Providers Care Executive Account Manager Name Role Phone AbdielSammi LEASE PURCHASE DRIVER Primary Care Provider Unav ailable Inocencia Castillo [facility] Primary Care Provider + Shakeel Plaza MD Unavailable [phone] Amy Newman OTR Unavailable [phone] Lia Charles [facility] Primary Care Provider + Madisyn Delgado LEASE PURCHASE DRIVER Primary Care Provider [phone] Encounter Details Date Type Department Care Team (Late st Contact Info) Description 05/19/2020 Hospital Follow-up Call [facility] [place] [address] Lorraine Vegas, RN Social History Tobacco Use Types Packs/Day Years Used Date Smoking Tobacco: Never Smokeless Tobacco: Never Alcohol Use Standard Drinks/Week Comments Yes 0 (1 standard drink = 0.6 oz pur e alcohol) occasionally AUDIT-C Answer Date Recorded Frequency of Alcohol Consumption Not on file 05/06/2020 Q2: How many drinks containi ng alcohol do you have on a typical day when you are drinking? 1 or 2 05/06/2020 Q3: How often do you have si x or more drinks on one occasion? Never 05/06/2020 PHQ-2 Answer Date Recorded PHQ-2 Score - If the patient scores above 3, please move on to questions 3-9 1 05/06/2020 Comments No Sex and Gender Information Value Date Recorded Sex Assigned at Female 10/31/2024 10:43 AM WASHER MACHINE Legal Sex Female 6:38 AM CDT Gender Identity Not on file Sexual Orientation Not on file COVID-19 Exposure Response Date Recorded In the last month, have you been in contact with someone who was confirmed or suspected to have Coronavirus / COVID-19? No / Unsure 05/21/2020 3:44 PM CDT documented as of this encounter Functional Status * RETIRED Are you deaf or do you have serious difficulty hearing Answer Date of Assessment Author Status No 05/13/2020 6:00 AM CDT Activ e * RETIRED Are you blind or do you have serious difficulty seeing, even when wearing glasses? Answer Date of Assessment Author Status No 05/13/2020 6:00 AM CDT Activ e * Do you have serious difficulty walking or climbing stairs? Answer Date of Assessment Author Status No 05/13/2020 6:00 AM MIKAELT Mariposa Bryant RN Active * Do you have difficulty dressing or bathing? Answer Date of Assessment Author Status No 05/13/2020 6:00 AM MIKAELT Mariposa Bryant RN Active * Because of a physical, mental, or emotional condition, do you have difficulty doing errands alone such as visiting a doctor's office or shopping? Answer Date of Assessment Author Status No 05/13/2020 6:00 AM Mariposa Jenkins RN Active documented as of this encounter Mental Status * Because of a physical, mental, or emotional condition, do you have serious difficulty concentrating, remembering, or making decisions? Answer Entry Date Author Status No 05/13/2020 6:00 AM Mariposa Jenkins RN Active documented in this encounter Plan of Treatment Upcoming Encounters Date Type Department Care Team (Late st Contact Info) Description 11/07/2024 10:30 AM WASHER MACHINE Telephone [facility], [address] [place] [address] Kendra Loyola MD Three [facility]. [address] [place] [address] 11/12/2024 9:20 AM CDT Office Visit [facility] Family Medicine - [place] [address] [place] [address] Madisyn Delgado NP [address] [place], [place] [address] 01/20/2025 1:45 PM CDT Office Visit [facility], [place] [address] [place], [place] [phone] Shakeel Plaza MD [facility]. [address] [place], [place] [address] 04/27/2025 3:15 PM CDT Office Visit [facility], [address] [place], [place] [address] Kendra Loyola MD Three [facility]. [address] [place], [place] [phone] documented as of this encounter Visit Diagnoses Not on filedocumented in this encounter Additional Health Concerns Infection Onset Date Last Indicated Resolved Time COVID-19 Rule Out 09/17/2020 09/17/2020 09/18/2020 6:42 PM WASHER MACHINE COVID-19 Rule Out 11/12/2020 11/12/2020 11/13/2020 9:41 AM WASHER MACHINE COVID-19 Rule Out 04/30/2024 04/30/2024 04/30/2024 3:53 PM CDT COVID-19 Confirmed 04/30/2024 04/30/2024 8:28 AM CDT documented as of this encounter Care Teams Executive Account Manager Relationship Specialty Start Date End Date Sammi Meadows NP PCP - General NURSE PRACTITIONER 05/05/20 09/21/21 Inocencia Castillo, [facility] PCP - General Nurse Practitioner Family 12/02/21 06/21/23 Lia Charles, [facility] [address] [place] [address] PCP - General Nurse Practitioner Family 06/22/23 08/22/23 Madisyn Delgado, YAYA [address] [place] [address] PCP - General NURSE PRACTITIONER 08/23/23 Shakeel Plaza MD Three [facility]. [address] [id number] Consulting Physician CARDIOVASCULAR DISEASE 09/03/21 Amy Newman, OTR [place], [place] [id number] Occupational Therapist Occupational Therapy 04/04/22 documented as of this encounter
--- OUTSIDE RECORDS SUMMARY | 2024-11-06 16:52 | XMS_ITS | Encounter Summary ---
Author Organization [facility] Address [address] [place] [address] Care Team Providers Care Concrete Block Layer Name Role Phone None, Provider Primary Care Provider Unavaila Sammi Bautista INJECTION MOLDING MACHINE OPERATOR Primary Care Provider Unav ailable Inocencia Castillo [facility] Primary Care Provider + Shakeel Plaza MD Unavailable [phone] Amy Newman OTR Unavailable [phone] Lia Charles [facility] Primary Care Provider + Madisyn Delgado INJECTION MOLDING MACHINE OPERATOR Primary Care Provider [phone] Encounter Details Date Type Department Care Team (Late Contact Info) Description 06/01/2017 Abstract [facility] CONVERSION [address] [place] [address] , Generic Conversion, Social History Tobacco Use Types Packs/Day Years Used Date Smoking Tobacco: Never Assessed Comments Unknown Sex and Gender Information Value Date Recorded Sex Assigned at Female 10/31/2024 10:43 AM FERN PICKER Legal Sex Female 6:38 AM CDT Gender Identity Not on file Sexual Orientation Not on file documented as of this encounter Plan of Treatment Upcoming Encounters Date Type Department Care Team ([facility] Contact Info) Description 11/07/2024 10:30 AM FERN PICKER Telephone [facility], [address] [place] [address] Kendra Loyola MD Three [facility] [address] [place] [address] 11/12/2024 9:20 AM CDT Office Visit [facility] Family Medicine - [place] [address] [place] [address] Madisyn Delgado, INJECTION MOLDING MACHINE OPERATOR [address] [place] [address] 01/20/2025 1:45 PM CDT Office Visit [facility], [facility] [address] [place] [address] Shakeel Plaza MD [facility]. [facility] [address] [place] [address] 04/27/2025 3:15 PM CDT Office Visit [facility] [address] [place] [address] Kendra Loyola MD [facility]. [facility] [address] [place] [address] documented as of this encounter Visit Diagnoses Not on filedocumented in this encounter Additional Health Concerns Infection Onset Date Last Indicated Resolved Time COVID-19 Rule Out 04/22/2020 04/22/2020 04/23/2020 7:54 AM CDT COVID-19 Rule Out 09/17/2020 09/17/2020 09/18/2020 6:42 PM FERN PICKER COVID-19 Rule Out 11/12/2020 11/12/2020 11/13/2020 9:41 AM FERN PICKER COVID-19 Rule Out 04/30/2024 04/30/2024 04/30/2024 3:53 PM CDT COVID-19 Confirmed 04/30/2024 04/30/2024 8:28 AM CDT documented as of this encounter Care Teams Concrete Block Layer Relationship Specialty Start Date End Date None, MD Frandy PCP - General 04/22/20 05/04/20 Sammi Meadows INJECTION MOLDING MACHINE OPERATOR PCP - General NURSE PRACTITIONER 05/05/20 09/21/21 Inocencia Castillo, [facility] PCP - General Nurse Practitioner Family 12/02/21 06/21/23 Lia Charles, [facility] [address] [place], [place] [id number] PCP - General Nurse Practitioner Family 06/22/23 08/22/23 Madisyn Delgado NP [address] [place] [address] PCP - General NURSE PRACTITIONER 08/23/23 Shakeel Plaza MD Three [facility]. [address] [address] Consulting Physician CARDIOVASCULAR DISEASE 09/03/21 Amy Newman, [place] [address] Occupational Therapist Occupational Therapy 04/04/22 documented as of this encounter
--- OUTSIDE RECORDS SUMMARY | 2024-11-06 16:52 | XMS_ITS | Encounter Summary ---
Author Organization [facility] Address [address] [place] [address] Phone Care Team Providers Care Waterproofer Helper Name Role Phone Sammi Meadows APRN, CNP Primary Care Provid er Ileana Caceres MD Unavailable [phone] Flakito Carr MD Unavailable [phone] Sammi Meadows APRN, CNP Primary Care Provid er Encounter Details Date Type Department Care Team (Late st Contact Info) Description 07/15/2021 Telephone [facility] [address] [address] Hi Erwin MD [address] [place] [phone] Social History Tobacco Use Types Packs/Day Years Used Date Smoking Tobacco: Never Smokeless Tobacco: Never Alcohol Use Standard Drinks/Week Comments Yes 0 (1 standard drink = 0.6 oz pur e alcohol) 1x a month PHQ-2 Answer Date Recorded Total Score - Questions 1-9 1 03/2021 Education Answer Date Recorded What is the highest level of school you have completed or the highest degree you have received? 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 Not on file Not on file Not on file documented as of this encounter Miscellaneous Notes * Telephone Encounter - Lina Warren - 07/18/2021 11:56 AM CST PATIENT IS SCHEDULED AT [facility] 08/22/21 AT 9:30AM. STANT TO THE PRESIDENT * Telephone Encounter - Lisa Crawford - 07/18/2021 11:25 AM CST ORDER STILL NOT SHOWING UP IN OUR WORK QUE-ROHAN IS WORKING ON GETTING IT SCHEDULED STANT TO THE PRESIDENT * Telephone Encounter - Lina Warren - 07/15/2021 3:19 PM CST THE ORDER SAYS EXPECTED END OF DEC SO IT DID NOT FALL IN THE QUE BUT I WILL GET PT SCHEDULED. STANT TO THE PRESIDENT * Telephone Encounter - Sheri Barton - 07/15/2021 2:35 PM CST Images from the original note were not included. Hi Erwin MD Sykes, Carla L.; [facility] Nurse Benedict 24 minutes ago (2:09 PM) MW Order placed on 06/09/21? Did we not rohan yet? Message text STANT TO THE PRESIDENT * Telephone Encounter - Krysten Lantigua - 07/15/2021 1:58 PM CST Patient called an requested an appt for mamogram. STANT TO THE PRESIDENT documented in this encounter Plan of Treatment Not on file documented as of this encounter Visit Diagnoses Not on filedocumented in this encounter Additional Health Concerns Assessment Noted Time PHQ-9 Depression Total Score: 1 06/09/20 21 2:59 PM CDT documented as of this encounter Care Teams Waterproofer Helper Relationship Specialty Start Date End Date Sammi Meadows APRN, CNP PCP - General Advanced Practice Nurse 08/25/20 02/03/22 Sammi Meadows APRN, CNP [address] [facility] [address] [place] [address] PCP - General Advanced Practice Nurse 03/15/22 Ileana Caceres MD [address] [address] Referring Provider Colon & Rectal Surgery 08/25/20 Flakito Carr MD [address] [place] [address] Consulting Physician Oncology 08/25/20 documented as of this encounter
--- OUTSIDE RECORDS SUMMARY | 2024-11-06 16:52 | XMS_ITS ---
Author Organization [facility] Address [address] [place] [address] Care Team Providers Care Director Mission Name Role Phone Shakeel Plaza MD Unavailable Madisyn Delgado NP Primary Care Provider [phone] Active Problems Problem Noted Date Diagnosed Date Anxiety and depression 03/17/2024 Overview (08/24/2024): Is not taking the escitalopram 10 mg daily anymore. Quit taking. No good reason but overall doing well. Is retired now so less stress. Assessment & Plan (08/24/2024 7:57 AM PARTS MANAGER): Pt informed to either begin taking or [...] 01/04/2024 Assessment & Plan (08/24/2024 7:49 AM PARTS MANAGER): Will continue to monitor. No tx necessary at this time. Ketonuria 12/20/2023 Nonrheumatic mitral valve regurgitation 03/10/20 History of lumpectomy of right breast 01/23/2022 Choledocholithiasis 12/14/2021 DCIS (ductal carcinoma in situ) of breast 2020 Overview (08/24/2024): Was following with oncology Dr. Erwin and was also following with Dr. Mueller but pt has not been seen since . No breast imaging since 2021. Pt had been taking anastrozole. Scheduled an appointment in Sep. Assessment & Plan (08/24/2024 7:38 AM PARTS MANAGER): Pt due for mammogram. Order placed and pt is scheduled for a follow up with DR. Erwin Sep 11. Discussed the importance of keeping her appointments. CAD (coronary artery disease) 11/09/2020 Dyslipidemia 11/09/2020 Overview (08/24/2024): Taking atorvastatin 80mg nightly and tolerates well. Assessment & Plan (08/24/2024 7:40 AM PARTS MANAGER): Chronic condition, will check lipid panel. No [...] carbohydrates. NSTEMI (non-ST elevated myoc ardial infarction) ([facility]) 04/22/2020 Chronic anticoagulation 07/06/2017 Class 2 severe obesity due t o excess calories with serious comorbidity and body mass index (BMI) of 37.0 to 37.9 in adult ([facility]) 06/01/2017 Assessment & Plan (08/24/2024 7:31 AM PARTS MANAGER): Encourage diet and lifestyle changes to assist with weight loss. Essential hypertension 05/08/2017 Overview (08/24/2024): Chronic condition. Follows with cardio Dr. Plaza and . Denies chest pain, palpitations, shortness of breath, dizziness, lightheadedness or lower extremity edema. Denies any orthopnea or PND. Has not been checking her bp's at home. Assessment & Plan (08/24/2024 7:41 AM PARTS MANAGER): Goal for BP to stay below 140/90. Encourage lifestyle modifications to include healthy eating, decrease salt and caffeine in diet, routine exercise, and weight loss. Will recheck BP in 2 weeks at follow up. Paroxysmal atrial fibrillation ([facility]) 04/20/2017 Overview (08/24/2024): Hx of A-Fib. Had a cardiac ablation on 05/15/24. Follows with Dr. Loyola. Pt on Metoprolol and Eliquis 5mg BID. Pt's note from Dr. Loyola reports pt to wean off Amiodarone. Is not currently taking She thinks she she still goes into A-Fib at times. Denies any med side effects. Assessment & Plan (08/24/2024 7:31 AM PARTS MANAGER): Currently not in A-Fib. Continue to monitor symtpoms and following with cardio as directed for med management. Discussed the importance of med compliance. Type 2 diabetes mellitus wit h hyperglycemia, with long-term current use of insulin ([facility]) 04/03/2017 Overview (08/24/2024): Last A1c 13.2 in [...] her blood sugars, not using her freestyle sarah. Has chronic polyuria, polydipsia and polyphagia. Is overdue for diabetic eye exam. Denies any neuropathy in her feet. Assessment & Plan (08/24/2024 7:48 AM PARTS MANAGER): A1C 12.3 today. Pt has been noncompliant [...] statin Unable to take NAT d/t cough Current Oncology Plans No current plan information found. Past Plans No past plan information found. Radiation Treatments * Plan Last Treated On Elapsed Days Fractions Treated Prescribed Fraction Dose Prescribed Total Dose R_Breast_bs t 02/21/2021 7 of 7 Rt Breast_FiF 02/10/2021 16 of 16 Reference Point Last Treated On Elapsed Days Session Dose Total Dose Rt Breast boost 02/21/2021 14 Rt Breast 02/10/2021 43 Resolved Problems Problem Noted Date Diagnosed Date Resolved Date Scalp abscess 01/04/2024 08/24/2024 Abscess 12/24/2023 08/24/2024 Wound drainage 12/20/2023 01/04/2024 Atypical ductal hyperplasia of right breast 09/15/2020 01/08/2022 Abnormal mammogram of right breast 07/17/2020 01/08/2022 Necrotizing fasciitis ([facility]) 04/03/2017 01/08/2022
--- OUTSIDE RECORDS SUMMARY | 2024-11-06 16:52 | XMS_ITS | Encounter Summary ---
Author Organization [facility] Address [address] [place] [address] Care Team Providers Care Plant Operator Helper Name Role Phone Sammi Meadows Amalia BODY BUMPER Primary Care Provider Unav ailable Inocencia Castillo [facility] Primary Care Provider + Shakeel Plaza MD Unavailable [phone] Amy Newman OTR Unavailable [phone] Lia Charles [facility] Primary Care Provider + Madisyn Delgado BODY BUMPER Primary Care Provider [phone] Encounter Details Date Type Department Care Team (Late st Contact Info) Description 09/13/2020 Prep for Procedure [facility] [address] [place] [address] Ileana Caceres MD [address] [place] [address] Social History Tobacco Use Types Packs/Day Years [...] Sex Assigned at Female 10/31/2024 10:43 AM TAILORING TEACHER Legal Sex Female 6:38 AM CDT Gender Identity Not on file Sexual Orientation Not on file COVID-19 Exposure Response Date Recorded In the last month, have you been in contact with someone who was confirmed or suspected to have Coronavirus / COVID-19? No / Unsure 09/13/2020 3:42 PM TAILORING TEACHER documented as of this encounter Functional Status [...] 05/13/2020 6:00 AM Mariposa Jenkins RN Active * Because of a physical, [...] st Contact Info) Description 11/07/2024 10:30 AM TAILORING TEACHER Telephone [facility], [address] [address] Kendra Loyola MD [facility]. [address] [place] [address] 11/12/2024 9:20 AM CDT Office Visit [facility] Family Medicine - [place] [address] [place] [address] Madisyn Delgado, YAYA [address] [place] [address] 01/20/2025 1:45 PM CDT Office Visit [facility], [facility] [address] [place] [address] Shakeel Plaza MD [facility]. [facility] [address] [place] [address] 04/27/2025 3:15 PM CDT Office Visit [facility], [facility] [address] [place] [address] Kendra Loyola MD [facility]. [facility] [address] [place] [address] documented as of this encounter Results * PRE-SURGICAL/PRE-PROCEDURE CORONAVIRUS (COVID 19) (09/17/2020 9:44 AM TAILORING TEACHER) CORONAVIRUS SARS COV 2 PCR (RESP) NOT DETECTED NOT DETECTED 09/18/2020 6:41 PM TAILORING TEACHER [facility] Comment: A Not Detected (negative) test result for this test means that SARS- CoV-2 RNA was not present in the specimen above the limit of detection. A negative result does not rule out the possibility of COVID-19 and should not be used as the sole basis for treatment or patient management decisions. If COVID-19 is still suspected, based on exposure history together with other clinical findings, re-testing should be considered in consultation with public health authorities. Laboratory test results should always be considered in the context of clinical observations and epidemiological data in making a final diagnosis and patient management decisions. Please review the Fact Sheets and FDA authorized labeling available for health care providers and patients using the following websites: [email or web address] Vision/home/Covid-19/[email or web address]/fact-sheet2 https://www.[employer]/home/Covid-19/Patients/NAAT/ fact-sheet2 This test has been authorized by the FDA under an Emergency Use Authorization (EUA) for use by authorized laboratories. Due to the current public health emergency, [facility] is receiving a high volume of samples from a wide variety of swabs and media for COVID-19 testing. In order to serve patients during this public health crisis, samples from appropriate clinical sources are being tested. Negative test results derived from specimens received in non-commercially manufactured viral collection and transport media, or in media and sample collection kits not yet authorized by FDA for COVID-19 testing should be cautiously evaluated and the patient potentially subjected to extra precautions such as additional clinical monitoring, including collection of an additional specimen. Methodology: Nucleic Acid Amplification Test (NAAT) includes RT-PCR or TMA Additional information about COVID-19 can be found at the [facility] website: www.[employer] Vision/Covid19. Test performed at [facility] [place] [address] [place] [address] Director: ZHOU MELISSA DO,MPH FIRST TEST NO 09/17/2020 9:29 AM [facility] EMPLOYED IN HEALTHCARE NO 09/17/2020 9:29 AM [facility] SYMPTOMATIC DEFINED BY CDC NO 09/17/2020 9:29 AM [facility] DATE OF SYMPTOM ONSET UNKNOWN 09/17/2020 10:12 AM [facility] HOSPITALIZATION STATUS NO 09/17/2020 9:29 AM [facility] PATIENT IN ICU NO 09/17/2020 9:29 AM [facility] RESIDENT OF [facility] NO 09/17/2020 9:29 AM TAILORING TEACHER [facility] UNKNOWN 09/17/2020 10:12 AM TAILORING TEACHER [facility] PATIENT'S RACE WHITE OR 09/17/2020 9:29 AM [facility] ETHNICITY NONHISPANIC 09/17/2020 9:29 AM [facility] SOURCE (QST) NASOPHARYNGEAL SWAB 09/17/2020 9:29 AM [facility] NASOPHARYNGEAL SWAB / Unknown 09/17/2020 9:44 AM TAILORING TEACHER Ileana Caceres MD MICROBIOLOGY - GENERAL ORDER ARELI Final Result Performing Organization Address [facility] Co de Phone Number [facility] [address] [place] [address], [place] [phone] [place] [address], * MRSA SCREENING (09/17/2020 9:43 AM TAILORING TEACHER) SPEC DESCRIPTION NASAL 09/17/2020 9:29 AM [facility] SPECIAL REQUESTS NO SPECIAL REQUEST 09/17/2020 9:29 AM [facility] CULTURE RESULT NO MRSA ISOLATED 09/18/2020 1:05 PM [facility] SPECIMEN FROM INTERNAL NOSE / Unknown 09/17/2020 9:43 AM TAILORING TEACHER 09/17/2020 9:44 AM TAILORING TEACHER Ileana Caceres MD MICROBIOLOGY - GENERAL ORDER ARELI Final Result [facility] [address] [place] [address], [place] [phone] documented in this encounter Visit Diagnoses Diagnosis Pre-op testing- Primary Preoperative examination, unspecified documented in this encounter Additional Health Concerns Infection Onset Date Last Indicated Resolved Time COVID-19 Rule Out 09/17/2020 09/17/2020 09/18/2020 6:42 PM TAILORING TEACHER COVID-19 Rule Out 11/12/2020 11/12/2020 11/13/2020 9:41 AM TAILORING TEACHER COVID-19 Rule Out 04/30/2024 04/30/2024 04/30/2024 3:53 PM CDT COVID-19 Confirmed 04/30/2024 04/30/2024 8:28 AM CDT documented as of this encounter Care Teams Plant Operator Helper Relationship Specialty Start Date End Date Sammi Meadows NP PCP - General NURSE PRACTITIONER 05/05/20 09/21/21 Inocencia Castillo, [facility] PCP - General Nurse Practitioner Family 12/02/21 06/21/23 Lia Charles, [facility] [address], [address] [place], [place] [id number] PCP - General Nurse Practitioner Family 06/22/23 08/22/23 Madisyn Delgado NP [address] [place] [address] PCP - General NURSE PRACTITIONER 08/23/23 Shakeel Plaza MD [facility]. [address] [id number] Consulting Physician CARDIOVASCULAR DISEASE 09/03/21 Amy Newman, OTR [place], [place] [id number] Occupational Therapist Occupational Therapy 04/04/22 documented as of this encounter
--- OUTSIDE RECORDS SUMMARY | 2024-11-06 16:52 | XMS_ITS | Encounter Summary ---
Author Organization [facility] Address [address] [place] [address] Phone Care Team Providers Care Manufacturing Director Name Role Phone Sammi Meadows APRN, CNP Primary Care Provid er Ileana Caceres MD Unavailable [phone] Flakito Carr MD Unavailable [phone] Sammi Meadows APRN, CNP Primary Care Provid er Encounter Details Date Type Department Care Team (Late st Contact Info) Description 09/02/2020 Telephone [facility] [address] [address] Flakito Carr MD [address] [facility] [place] [address] [address] Social History Tobacco Use Types Packs/Day Years Used Date Smoking Tobacco: Never Assessed Comments Unknown Sex and Gender Information Value Date Recorded Sex Assigned at Not on file Legal Sex Female 2:05 PM RATE SETTER Gender Identity Not on file Sexual Orientation Not on file documented as of this encounter Miscellaneous Notes * Telephone Encounter - Maerly Fuentes - 09/02/2020 1:19 PM CST Patient no showed her appointment, called and left voice message for her to call the office to reschedule. Sent out no show letter. SETTER documented in this encounter Plan of Treatment Not on file documented as of this encounter Visit Diagnoses Not on filedocumented in this encounter Care Teams Manufacturing Director Relationship Specialty Start Date End Date Sammi Meadows APRN, PURIFICATION SUPERVISOR PCP - General Advanced Practice Nurse 08/25/20 02/03/22 Sammi Meadows APRN, PURIFICATION SUPERVISOR [address] [place] [address] PCP - General Advanced Practice Nurse 03/15/22 Ileana Caceres MD [address] [address] Referring Provider Colon & Rectal Surgery 08/25/20 Flakito Carr MD [address] [place] [address] Consulting Physician Oncology 08/25/20 documented as of this encounter
--- OUTSIDE RECORDS SUMMARY | 2024-11-06 16:52 | XMS_ITS | Encounter Summary ---
Author Organization [facility] Address [address] [place] [address] Care Team Providers Care Electronics Inspector Name Role Phone Shakeel Plaza MD Unavailable [phone] Madisyn Delgado NP Primary Care Provider [phone] Encounter Details Date Type Department Care Team (Late st Contact Info) Description 10/16/2024 [employer] Message Enc [facility] Family Medicine [facility] [address] [place] [address] [facility] Provider Appointment Needed Social History Tobacco Use Types Packs/Day Years Used Date Smoking Tobacco: Never Passive Smoke Exposure: Never Smokeless Tobacco: Never Alcohol Use Standard Drinks/Week Comments Yes 0 (1 standard drink = 0.6 oz pur e alcohol) 1 drink per month [facility] Utilities Answer Date Recorded In the past 12 months has [employer], oil, or water [employer] threatened to shut off services in your [...] any time in the past 12 m [facility], were you homeless or living in a prison (including now)? No 12/24/2023 Comments No Sex and Gender Information Value Date Recorded Sex Assigned at Female 10/31/2024 10:43 AM RAW STOCK DYEING MACHINE TENDER Legal Sex Female 6:38 AM CDT Gender Identity Not on file Sexual Orientation Not on file documented as of this encounter Functional Status * Are you deaf or do you have serious difficulty hearing Answer Date of Assessment Author Status No 12/24/2023 11:30 PM CDT Oralia Fatima RN Active * Are you blind or do you have serious difficulty seeing, even when wearing glasses? Answer Date of Assessment Author Status No 12/24/2023 11:30 PM CDT Oralia Fatima RN Active * Do you have serious difficulty walking or climbing stairs? Answer Date of Assessment Author Status No 12/24/2023 11:30 PM CDT Oralia Fatima RN Active * Do you have difficulty dressing or bathing? Answer Date of Assessment Author Status No 12/24/2023 11:30 PM CDT Oralia Fatima RN Active * Because of a physical, mental, or emotional condition, do you have difficulty doing errands alone such as visiting a doctor's office or shopping? Answer Date of Assessment Author Status No 12/24/2023 11:30 PM CDT Oralia Fatima RN Active documented as of this encounter Mental Status * Because of a physical, mental, or emotional condition, do you have serious difficulty concentrating, remembering, or making decisions? Answer Entry Date Author Status No 12/24/2023 11:30 PM CDT Oralia Fatima RN Active documented in this encounter Plan of Treatment Upcoming Encounters Date Type Department Care Team (Late st Contact Info) Description 11/07/2024 10:30 AM RAW STOCK DYEING MACHINE TENDER Telephone [facility] [address] [place] [address] Kendra Loyola MD [facility]. [facility] [address] [place] [address] 11/12/2024 9:20 AM CDT Office Visit [facility] Family Medicine - [place] [address] [facility] [address] [place], [place] [address] Madisyn Delgado NP [address] [place] [address] 01/20/2025 1:45 PM CDT Office Visit [facility], [place] [address] [place] [address] Shakeel Plaza MD [facility]. [place] [address] [place] [address] 04/27/2025 3:15 PM CDT Office Visit [facility], [place] [address] [place] [address] Kendra Loyola MD [facility]. [place] [address] [place], [place] [address] documented as of this encounter Goals Goal Patient Goal Type Associated Problems Recent Progress Patient-Stated? Author Patient will return to prior living situation and remain independent in ADLs upon discharge from hospital General No Елена Guevara RN documented as of this encounter Visit Diagnoses Not on filedocumented in this encounter Additional Health Concerns Assessment Noted Time PHQ-9 Depression Total Score: 17 024 10:53 AM CDT documented as of this encounter Care Teams Electronics Inspector Relationship Specialty Start Date End Date Madisyn Delgado NP [address] [place] [address] PCP - General NURSE PRACTITIONER 08/23/23 Shakeel Plaza MD [facility]. [place] [address] [place] [address] Consulting Physician CARDIOVASCULAR DISEASE 09/03/21 documented as of this encounter
--- OUTSIDE RECORDS SUMMARY | 2024-11-06 16:52 | XMS_ITS | Encounter Summary ---
Author Organization [facility] Address [address] [place] [address] Care Team Providers Care Wearing Apparel Presser Name Role Phone Shakeel Plaza MD Unavailable [phone] Madisyn Delgado NP Primary Care Provider [phone] Encounter Details Date Type Department Care Team (Late st Contact Info) Description 09/10/2023 [employer] Message Enc [facility] Family Medicine [facility] [address] [place] [address] [facility] Provider Appointment Social History Tobacco Use Types Packs/Day Years Used Date Smoking Tobacco: Never Passive Smoke Exposure: Never Smokeless Tobacco: Never Alcohol Use Standard Drinks/Week Comments Yes 0 (1 standard drink = 0.6 oz pur e alcohol) 1-2 drinks monthly AUDIT-C Answer Date Recorded Frequency of Alcohol Consumption Not on file 05/06/2020 Q2: How many drinks containi ng alcohol do you have on a typical day when you are drinking? 1 or 2 05/06/2020 Q3: How often do you have si x or more drinks on one occasion? Never 05/06/2020 PHQ-2 Answer Date Recorded Patient Health Questionnaire-2 Score 4 08/23/2023 Comments No Sex and Gender Information Value Date Recorded Sex Assigned at Female 10/31/2024 10:43 AM IMAGE SCIENTIST Legal Sex Female 6:38 AM CDT Gender Identity Not on file Sexual Orientation Not on file documented as of this encounter Functional Status * RETIRED Are you deaf or do you have serious difficulty hearing Answer Date of Assessment Author Status No 12/14/2021 7:45 PM CDT Activ e * RETIRED Are you blind or do you have serious difficulty seeing, even when wearing glasses? Answer Date of Assessment Author Status Yes 12/14/2021 7:45 PM CDT Activ e * Do you have serious difficulty walking or climbing stairs? Answer Date of Assessment Author Status No 12/14/2021 7:45 PM CDT Falguni Barth RN Active * Do you have difficulty dressing or bathing? Answer Date of Assessment Author Status No 12/14/2021 7:45 PM CDT Falguni Barth RN Active * Because of a physical, mental, or emotional condition, do you have difficulty doing errands alone such as visiting a doctor's office or shopping? Answer Date of Assessment Author Status No 12/14/2021 7:45 PM CDT Falguni Barth RN Active documented as of this encounter Mental Status * Because of a physical, mental, or emotional condition, do you have serious difficulty concentrating, remembering, or making decisions? Answer Entry Date Author Status No 12/14/2021 7:45 PM CDT Falguni Barth RN Active documented in this encounter Plan of Treatment Upcoming Encounters Date Type Department Care Team (Late st Contact Info) Description 11/07/2024 10:30 AM IMAGE SCIENTIST Telephone [facility], [facility] [address] [place] [address] Kendra Loyola MD [facility]. [facility] [address] [place] [address] 11/12/2024 9:20 AM CDT Office Visit [facility] Family Medicine - Stephen [address] [facility] [address] [place], [place] [address] Madisyn Delgado NP [address] [place] [address] 01/20/2025 1:45 PM CDT [facility] [place] [address] [place] [address] Shakeel Plaza MD Three [facility]. [place] [address] [place] [address] 04/27/2025 3:15 PM CDT Office Visit [facility], [place] [address] [place] [address] Kendra Loyola MD Three [facility]. [place] [address] [place], [place] [address] documented as of this encounter Goals Goal Patient Goal Type Associated Problems Recent Progress Patient-Stated? Author Patient will return to prior living situation and remain independent in ADLs upon discharge from hospital General No Елена Guevara RN documented as of this encounter Visit Diagnoses Not on filedocumented in this encounter Additional Health Concerns Infection Onset Date Last Indicated Resolved Time COVID-19 Rule Out 04/30/2024 04/30/2024 04/30/2024 3:53 PM CDT COVID-19 Confirmed 04/30/2024 04/30/2024 4 8:28 AM CDT Assessment Noted Time PHQ-9 Depression Total Score: 16 023 8:36 AM IMAGE SCIENTIST documented as of this encounter Care Teams Wearing Apparel Presser Relationship Specialty Start Date End Date Madisyn Delgado NP [address] [place] [address] PCP - General NURSE PRACTITIONER 08/23/23 Shakeel Plaza MD Three [facility]. [place] [address] [place] [address] Consulting Physician CARDIOVASCULAR DISEASE 09/03/21 documented as of this encounter
--- OUTSIDE RECORDS SUMMARY | 2024-11-06 16:53 | XMS_ITS | Encounter Summary ---
Author Organization [facility] Address [address] [place] [address] Care Team Providers Care Mold Dumper Name Role Phone Sammi Meadows Amalia PRINTING MACHINE OPERATOR Primary Care Provider Unav ailable Inocencia Castillo [facility] Primary Care Provider + Shakeel Plaza MD Unavailable [phone] Amy Newman OTR Unavailable [phone] Lia Charles [facility] Primary Care Provider + Madisyn Delgado PRINTING MACHINE OPERATOR Primary Care Provider [phone] Encounter Details Date Type Department Care Team (Late st Contact Info) Description 11/08/2020 Prep for Procedure [facility] [address] [place] [address] Ileana Caceres MD [address] [place] [address] Social History Tobacco Use Types Packs/Day Years [...] Sex Assigned at Female 10/31/2024 10:43 AM TOLL PATROLMAN Legal Sex Female 6:38 AM CDT Gender Identity Not on file Sexual Orientation Not on file COVID-19 Exposure Response Date Recorded In the last month, have you been in contact with someone who was confirmed or suspected to have Coronavirus / COVID-19? No / Unsure 11/08/2020 1:25 PM TOLL PATROLMAN documented as of this encounter Functional Status [...] st Contact Info) Description 11/07/2024 10:30 AM TOLL PATROLMAN Telephone [facility], [address] [address] Kendra Loyola MD [facility]. [address] [place] [address] 11/12/2024 9:20 AM CDT Office Visit [facility] Family Medicine - Stephen [address] [place] [address] Madisyn Delgado, YAYA [address] [place] [address] 01/20/2025 1:45 PM CDT Office Visit [facility], [facility] [address] [place] [address] Shakeel Plaza MD [facility]. [facility] [address] [place] [address] 04/27/2025 3:15 PM CDT Office Visit [facility], [facility] [address] [place] [address] Kendra Loyola MD [facility]. [facility] [address] [place] [address] documented as of this encounter Results * PRE-SURGICAL/PRE-PROCEDURE CORONAVIRUS (COVID 19) (11/12/2020 10:41 AM TOLL PATROLMAN) CORONAVIRUS SARS COV 2 PCR (RESP) NOT DETECTED NOT DETECTED 11/13/2020 9:41 AM TOLL PATROLMAN [facility] Comment: A Not Detected (negative) test [...] providers and patients using the following websites: https://www.fos4X.Page [employer]ry/home/Covid-19/HCP/QuestIVD/fact- sheet.html https://www.fos4X.Page [employer]/home/Covid-19/Patients/ QuestIVD/fact-sheet.html This test has been authorized by the FDA under an Emergency Use Authorization (EUA) for use by authorized laboratories. Due to the current public health emergency, [facility] is receiving a high volume of samples [...] about COVID-19 can be found at the [facility] website: www.Zenph/Covid19. Test performed at [facility] [address] [place] [address] Director: ZHOU MELISSA DO,MPH FIRST TEST NO 11/12/2020 10:39 AM [facility] EMPLOYED IN HEALTHCARE NO 11/12/2020 10:39 AM [facility] SYMPTOMATIC DEFINED BY CDC NO 11/12/2020 10:39 AM [facility] DATE OF SYMPTOM ONSET UNKNOWN 11/12/2020 11:01 AM [facility] HOSPITALIZATION STATUS NO 11/12/2020 10:39 AM [facility] PATIENT IN ICU NO 11/12/2020 10:39 AM [facility] RESIDENT OF [facility] NO 11/12/2020 10:39 AM TOLL PATROLMAN [facility] UNKNOWN 11/12/2020 11:01 AM TOLL PATROLMAN [facility] PATIENT'S RACE WHITE OR 11/12/2020 10:39 AM TOLL PATROLMAN [facility] ETHNICITY NONHISPANIC 11/12/2020 10:39 AM TOLL PATROLMAN [facility] SOURCE (QST) NASOPHARYNGEAL SWAB 11/12/2020 10:39 AM TOLL PATROLMAN [facility] NASOPHARYNGEAL SWAB / Unknown 11/12/2020 10:41 AM TOLL PATROLMAN us lIeana Caceres MD MICROBIOLOGY - GENERAL ORDER ARELI Final Result [facility] [address] [place] [address], [facility] [address] [place] [address], documented in this encounter Visit Diagnoses Diagnosis Pre-op testing- Primary Preoperative examination, unspecified documented in this encounter Additional Health Concerns Infection Onset Date Last Indicated Resolved Time COVID-19 Rule Out 11/12/2020 11/12/2020 11/13/2020 9:41 AM TOLL PATROLMAN COVID-19 Rule Out 04/30/2024 04/30/2024 04/30/2024 3:53 PM CDT COVID-19 Confirmed 04/30/2024 04/30/2024 8:28 AM CDT documented as of this encounter Care Teams Mold Dumper Relationship Specialty Start Date End Date Sammi Meadows NP PCP - General NURSE PRACTITIONER 05/05/20 09/21/21 Inocencia Castillo FNP- PCP - General Nurse Practitioner Family 12/02/21 06/21/23 Lia Charles FNP- [address], [address] [place] [address] PCP - General Nurse Practitioner Family 06/22/23 08/22/23 Madisyn Delgado NP [address] [place] [address] PCP - General NURSE PRACTITIONER 08/23/23 Shakeel Plaza MD [facility]. [address] [place] [id number] Consulting Physician CARDIOVASCULAR DISEASE 09/03/21 Amy Newman, [place] [address] Occupational Therapist Occupational Therapy 04/04/22 documented as of this encounter
--- OUTSIDE RECORDS SUMMARY | 2024-11-06 16:53 | XMS_ITS | Clinical Summary ---
Author Organization [facility] Address [address] [place] [address] Phone Care Team Providers Care Woodwork Salvage Inspector Name Role Phone Ileana Caceres MD Unavailable [phone] Flakito Carr MD Unavailable [phone] Sammi Meadows APRN, TAP OUT OPERATOR Primary Care Provid er Allergies Active Allergy Reactions Criticality Noted Date Comments Ciprofloxacin Rash Low 05/31/2017 ? Pt doesn't remember having a reaction to any med. Sulfa Antibiotics Rash Low 05/31/2017 ?Pt doesn't remember having a reaction to any med. Medications amLODIPine (NORVASC) 5 MG Tablet Take 5 mg by mouth. 0 Active apixaban (ELIQUIS) 5 MG Tablet Take 5 mg by mouth. 7 Active atorvastatin (LIPITOR) 80 MG Tablet Take 80 mg by mouth. 0 Active metFORMIN (GLUCOPHAGE) 500 MG Tablet 1 tab daily x 1 wk; 1 tab 2x daily w/meals x 1 week; 2 tab am 1 tab pm x 1 week; 2 tab 2x daily 0 Active metoprolol tartrate (LOPRESSOR) 50 MG Tablet Take 75 mg by mouth. 8 Active nitroGLYCERIN (NITROSTAT) 0.4 MG SL Tablet 0.4 mg by Sublingual route. 0 Active Jardiance 10 MG Tablet 1 Active Ozempic, 1 MG/DOSE, 2 MG/1.5ML Solution Pen-injector INJECT 1 MG UNDER THE SKIN EVERY 7 DAYS 1 Active Aspirin Low Dose 81 MG Tablet Delayed Response Take 81 mg by mouth daily. 1 Active anastrozole (ARIMIDEX) 1 MG TabletIndication s:Atypical ductal hyperplasia of right breast,Ductal carcinoma in situ (DCIS) of breast, unspecified laterality TAKE 1 TABLET BY MOUTH DAILY 90 Tablet 3 3 Active Active Problems Problem Noted Date Diagnosed Date Atypical ductal hyperplasia of right breast 04/2021 Immunizations Immunization Administration Dates Next Due Covid-19 Vaccine, Vector-nr, Rs-ad26, Pf, 0.5 Ml ([employer]) 11/08/2020 Pneumococcal Vaccine Adult - 23 Valent 1 Family History Medical History Relation Name Comments Heart Disease Mother Cancer Sister Relation Name Status Comments Father Mother Alive afib Sister Alive recent breast c ancer Social History Tobacco Use Types Packs/Day Years [...] degree you have received? 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 Not on file Not on file Last Filed Vital Signs Vital Sign Reading Time Taken Comments Blood Pressure 140/84 03/16/2022 2:33 PM CDT Pulse 60 03/16/2022 2:33 PM CDT Temperature 36.6 C (97.9 F) 03/16/2022 2:33 PM CDT Respiratory Rate 18 03/16/2022 2:33 PM CDT Oxygen Saturation 97% 03/16/2022 2:33 PM CDT Inhaled Oxygen Concentration - - Weight 101.6 kg (224 lb) 03/16/2022 2:33 PM CDT Height 162.6 cm (5' 4 ) 03/16/2022 2:33 PM CDT Body Mass Index 38.45 03/16/2022 2:33 PM CDT Plan of Treatment Health Maintenance Due Date Last Done Comments TdaP Immunization 1963 Zoster Immunization (1 of 2) 1982 Pap Smear 1984 Cervical Cancer Screening (CCS) 1993 HPV/Cotest 1993 Colonoscopy 2008 Colorectal Cancer Screening 2008 Cologuard 2013 Immunochemical Fecal Occult Blood 2013 Pneumococcal Immunization (50+ years) (2 of 2 - PCV) 09/24/2021 09/24/2020 Mammogram 03/08/2023 03/08/2022, 08/04, 08/29/2021, Additional history exists Respiratory Syncytial Virus (RSV) Immunization (Adult) (1 - Risk 60-74 years 1-dose series) 2023 Influenza Immunization (#1) 2024 05/26/2022 SARS-COV-2 Immunization ( season) 2024 05/26/2022, 08/11/2021, 11/08/2020 Pneumococcal Immunization Combined Discontinued 09/24/2020 Hepatitis C Virus (HCV) Screening Completed 08/23/2023 Hepatitis B Immunization Aged Out No longer eligible based on patient's age to complete this topic Meningococcal Immunization (ACWY) Aged Out No longer eligible based on patient's age to complete this topic Rotavirus Immunization Aged Out No lo nger eligible based on patient's age to complete this topic Insurance [facility] Care Teams Woodwork Salvage Inspector Relationship Specialty Start Date End Date Sammi Meadows, CLAIMS EXAMINER, TAP OUT OPERATOR [address] [place] [address] PCP - General Advanced Practice Nurse 03/15/22 Ileana Caceres MD [address] [address] Referring Provider Colon & Rectal Surgery 08/25/20 Flakito Carr MD [address] [place] [phone] Consulting Physician Oncology 08/25/20
--- OUTSIDE RECORDS SUMMARY | 2024-11-06 16:53 | XMS_ITS | Referral Summary ---
Author Organization [facility] Address [address] [place] [address] Care Team Providers Care Biomedical Manager Name Role Phone Unavailable Primary Care Provider Unavailabl e Source Comments [facility],non-owned Affiliates and Associated Physician Practices is amultiple site organization consisting of ambulatory clinics and hospital sitesin [place], [place], [place] and [place]. This disclosure is being madepursuant to the Care Everywhere program and may not contain all information available regarding this patient. Last updated 18.[facility] Medications * Be aware that medications may not be up to date on this document. Alwaysverify current medications with the patient. Medication Sig Dispensed Refills Start Date End Date Status dextrose 50 % IV 25 mL by Intravenous route. 10 syringe 0 04/17/2017 Active dextrose 50 % IV 50 mL by Intravenous route. 10 syringe 0 04/17/2017 Active albuterol (PROVENTIL;VENTOLI N) (5 MG/ML) 0.5% nebulizer solution 2.5 mg q6h PRN (Wheezing). 1 Box 3 04/17/2017 Active insulin lispro (HUMALOG) 100 UNIT/ML vial Inject 0 Units subcutaneously. 10 mL 3 04/17/2017 Active lisinopril (PRINIVIL; ZESTRIL) 10 MG tablet Take 10 mg by mouth DAILY. 30 tablet 3 04/17/2017 Active docusate sodium (COLACE) 100 MG capsule Take 100 mg by mouth BID PRN (Constipation). 60 capsule 0 04/17/2017 Active sennosides (SENOKOT) 8.6 MG tablet Take 8.6 mg by mouth. 30 tablet 0 04/17/2017 Active insulin glargine (LANTUS) vial Inject 20 Units subcutaneously. 10 mL 3 04/17/2017 Active apixaban (ELIQUIS) 5 MG tablet Take 5 mg by mouth BID. 60 tablet 0 04/17/2017 Active metoprolol tartrate (LOPRESSOR) 50 MG tablet Take 50 mg by mouth q8h. 60 tablet 0 04/17/2017 Active polyethylene glycol 3350 (MIRALAX) packet Take 17 g by mouth DAILY. 30 packet 0 04/17/2017 Active HYDROcodone-acetam inophen (NORCO) 5-325 MG tablet Take 1 tablet by mouth q4h PRN. 60 tablet 0 04/17/2017 Active Active Problems Problem Noted Date Diagnosed Date Atrial fibrillation 04/20/2017 Other specified diabetes vianca litus with ketoacidosis without coma 04/09/2017 Other specified inflammation of vagina and vulva 04/03/2017 Hyperglycemia 04/03/2017 Necrotizing fasciitis 04/03/2017 Type 2 diabetes mellitus with hyperglycemia 09/2016 Acute pulmonary insufficiency following nonthora cic surgery 04/03/2017 Social History Tobacco Use Types Packs/Day Years Used Date Smoking Tobacco: Never Smokeless Tobacco: Never Alcohol Use Standard Drinks/Week Comments Yes 0 (1 standard drink = 0.6 oz pur e alcohol) Sex and Gender Information Value Date Recorded Sex Assigned at Not on file Gender Identity Not on file Sexual Orientation Not on file Last Filed Vital Signs Vital Sign Reading Time Taken Comments Blood Pressure 123/88 04/17/2017 12:08 PM CDT Pulse 105 04/17/2017 12:08 PM CDT Temperature 36.3 C (97.4 F) 04/17/2017 12:08 PM CDT Respiratory Rate 18 04/17/2017 12:08 PM CDT Oxygen Saturation 96% 04/17/2017 12:08 PM CDT Inhaled Oxygen Concentration - - Weight 109.8 kg (242 lb) 04/09/2017 6:41 AM CDT Height 162.6 cm (5' 4 ) 04/09/2017 6:41 AM CDT Body Mass Index 41.54 04/09/2017 6:41 AM CDT Plan of Treatment Not on file Procedures Procedure Name Priority Date/Time Associated Diagnosis Comments LIPID PROFILE Timed 04/14/2017 5:29 AM CDT from Last 3 Months or Most Recently Relevant to Health Maintenance Results * (ABNORMAL) LIPID PROFILE (04/14/2017 5:29 AM CDT) Cholesterol Total 176 <200 mg/dL [facility] HDL 45 >40 mg/dL [facility] Comment: ATP III Classification of HDL Cholesterol: <40 mg/dL: Considered a major risk factor. >60 mg/dL: Considered a negative risk factor. LDL Calculated 116(H) <100 mg/dL [facility] Comment: ATP III Classification of LDL Cholesterol: <100 mg/dL: Optimal 100 - 129 mg/dL: Near Optimal/Above Optimal 130 - 159 mg/dL: Borderline High 160 - 189 mg/dL: High >190 mg/dL: Very High Triglycerides 74 <150 mg/dL [facility] Comment: ATP III Classification of Triglycerides: <150 mg/dL: Normal 150 - 199 mg/dL: Borderline High 200 - 400 mg/dL: High >500 mg/dL: Very High Blood specimen (specimen) BLOOD SPECIMEN / Unknown 04/14/2017 5:29 AM CDT 04/14/2017 6:01 AM CDT Cornelio Martinez MD LAB - CHEMISTRY ORD ERABLES [address] [phone] from Last 3 Months or Most Recently Relevant to Health Maintenance
--- OUTSIDE RECORDS SUMMARY | 2024-11-06 16:53 | XMS_ITS | Clinical Summary ---
Author Organization [facility] Address [address] [place] [address] Care Team Providers Care Geothermal Installer Name Role Phone No, Physician Primary Care Provider [phone] Allergies No known active allergies Medications insulin lispro (HumaLOG) 100 unit/mL insulin pen Active insulin detemir (LEVEMIR) 100 unit/mL (3 mL) insulin pen Active diltiazem LA (CARDIZEM LA) 120 mg 24 hr tablet Take 1 tablet (120 mg total) by mouth 2 (two) times a day. 180 tablet 2 07/06/2017 Active metoprolol (LOPRESSOR) 50 mg tablet Take 1.5 tablets (75 mg total) by mouth 2 (two) times a day. 135 tablet 10/23/2017 Active apixaban (ELIQUIS) 5 mg tablet Take 1 tablet (5 mg total) by mouth 2 (two) times a day. 180 tablet 3 12/11/2017 Active losartan (COZAAR) 25 mg tablet Take 1 tablet (25 mg total) by mouth daily. 90 tablet 1 08/12/2018 Active Active Problems Problem Noted Date Diagnosed Date Post-menopausal bleeding 12/07/2017 Chronic anticoagulation 07/06/2017 Anticoagulation management encounter 06/01/2017 Paroxysmal atrial fibrillation 06/01/2017 Morbid obesity due to excess calories 06/01/2017 Diabetes mellitus type II, non insulin dependent 06/01/2017 Essential hypertension 06/01/2017 Surgical History Surgery Date Site/Laterality Comments WOUND DEBRIDEMENT Medical History Medical History Date Comments Hypertension Arrhythmia Diabetes mellitus (HCC) Pneumonia Morbid obesity due to excess calories (HCC) 06/01 Diabetes mellitus type II, non insulin dependent (HCC) 06/01/2017 Post-menopausal bleeding 12/07/2017 Family History Medical History Relation Name Comments Atrial fibrillation Mother Relation Name Status Comments Father (Age 73) Mother Alive Social History Tobacco Use Types Packs/Day Years Used Date Smoking Tobacco: Never Smokeless Tobacco: Never Tobacco Cessation:Counseling Given: No Alcohol Use Standard Drinks/Week Comments No 0 (1 standard drink = 0.6 oz pur e alcohol) Personal Safety Answer Date Recorded Getting School Help Needed Not on file 11/17 Comments Unknown Sex and Gender Information Value Date Recorded Sex Assigned at Not on file Legal Sex Female 1:27 PM CDT Gender Identity Not on file Sexual Orientation Not on file Obstetrics History Last Filed Vital Signs Vital Sign Reading Time Taken Comments Blood Pressure 110/68 03/04/2019 8:52 AM CDT Pulse 60 03/04/2019 8:52 AM CDT Temperature - - Respiratory Rate 16 06/01/2017 8:15 AM CDT Oxygen Saturation 97% 03/04/2019 8:52 AM CDT Inhaled Oxygen Concentration - - Weight 111.1 kg (245 lb) 01/08/2020 2:11 PM CDT Height 162.6 cm (5' 4 ) 01/08/2020 2:11 PM CDT Body Mass Index 42.05 01/08/2020 2:11 PM CDT Plan of Treatment Not on file [place] [address] [place] [address] Care Teams Geothermal Installer Relationship Specialty Start Date End Date No, Physician PCP - General 01/09/20
--- OUTSIDE RECORDS SUMMARY | 2024-11-06 16:53 | XMS_ITS | Encounter Summary ---
Author Organization [facility] Address [address] [place] [address] Care Team Providers Care Tank Farm Operator Name Role Phone Inocencia Castillo [facility] Primary Care Provider + Shakeel Plaza MD Unavailable [phone] Amy Newman OTR Unavailable [phone] Lia Charles [facility] Primary Care Provider + Madisyn Delgado NP Primary Care Provider [phone] Reason for Visit * Reason Onset Date Comments Hospital Follow Up 12/20/2021 Encounter Details Date Type Department Care Team (Late st Contact Info) Description 12/20/2021 Hospital Follow-up Call [facility] [address] [place] [address] Chioma Agee, [facility] Follow Up Social History Tobacco Use Types Packs/Day Years [...] 3, please move on to questions 3-9 0 09/16/2021 Comments No Sex and Gender Information Value Date Recorded Sex Assigned at Female 10/31/2024 10:43 AM BASTING MACHINE OPERATOR Legal Sex Female 6:38 AM CDT Gender Identity Not on file Sexual Orientation Not on file COVID-19 Exposure Response Date Recorded In the last 10 days, have yo u been in contact with someone who was confirmed or suspected to have Coronavirus/COVID-19? No / Unsure 12/14/2021 12:30 AM CDT documented as of this encounter Functional Status * RETIRED Are you deaf or do you have serious difficulty hearing Answer Date of Assessment Author Status No 12/14/2021 7:45 PM CDT Acti ve * RETIRED Are you blind or do [...] st Contact Info) Description 11/07/2024 10:30 AM BASTING MACHINE OPERATOR Telephone [facility], [address] [place] [address] Kendra Loyola MD [facility]. [address] [place] [address] 11/12/2024 9:20 AM CDT Office Visit [facility] Family Medicine - Stephen [address] [facility] [address] [place] [address] Madisyn Delgado NP [address] [place], [place] [address] 01/20/2025 1:45 PM CDT Office Visit [facility] [place] [address] [place], [place] [id number] Shakeel Plaza MD [facility]. [place] [place], [place] [address] 04/27/2025 3:15 PM CDT Office Visit [facility] [place] [address] [place], [place] [address] Kendra Loyola MD [facility]. [address] [place], [place] [id number] documented as of this encounter Goals Goal [...] COVID-19 Confirmed 04/30/2024 04/30/2024 8:28 AM CDT Assessment Noted Time PHQ-9 Depression Total Score: 0 09/16/19 22 2:02 PM BASTING MACHINE OPERATOR documented as of this encounter Care Teams Tank Farm Operator Relationship Specialty Start Date End Date Inocencia Castillo FNP-BC PCP - General Nurse Practitioner Family 12/02/21 06/21/23 Lia Charles, [facility]- [address] [place] [address] PCP - General Nurse Practitioner Family 06/22/23 08/22/23 Madisyn Delgado NP [address] [place] [address] PCP - General NURSE PRACTITIONER 08/23/23 Shakeel Plaza MD [facility]. [address] [address] Consulting Physician CARDIOVASCULAR DISEASE 09/03/21 Amy Newman, [address] [place], [place] [id number] Occupational Therapist Occupational Therapy 04/04/22 documented as of this encounter
--- OUTSIDE RECORDS SUMMARY | 2024-11-06 16:53 | XMS_ITS | Continuity of Care Document ---
Author Organization [facility] Address [address] [place] [address] Phone Care Team Providers Care Television Reporter Name Role Phone Matthew Gold DO Unavailable Unavailable Advance Directives Directive Yes / No Effective Date File Name No Information Encounters Encounter Description Practice Location Reason(s) For Visit Diagnoses Date Provider Providers Copied on Encounter [facility], [address], [place], [place], [id number], [place] tel:[phone] [facility] No Information Asif Leigh. [address] [place], [address], [place]. tel: [phone] Family History Family Member Type Diagnosis Age At Onset No Information Payers Payer name Insurance type Covered alliance party ID Authoriza tion(s) No Information Social History Type Description Quantity Date Captured Comments Sex Female Smoking Status No Information Chief Complaint And Reason For Visit No Information Reason For Referral Reason For Referral No Information History Of Present Illness Encounter Date Complaint History Of Prese nt Illness No Information Functional Status Date Functional Assessmen t No Information Instructions Date Instruction Additional Infor mation No Information Assessments Type Assessment Date No Information Patient Care Teams Name Effective Dates (start - stop) Status Members No Information
--- OUTSIDE RECORDS SUMMARY | 2024-11-06 16:53 | XMS_ITS | Referral Summary ---
Author Organization [facility] Address [address] [place] [address] Care Team Providers Care Back Tacker Name Role Phone No, Physician Primary Care Provider [phone] Allergies No known active allergies Medications insulin [...] non insulin dependent 06/01/2017 Essential hypertension 06/01/2017 Social History Tobacco Use Types Packs/Day Years [...] Plan of Treatment Not on file Insurance [facility] Care Teams Back Tacker Relationship Specialty Start Date End Date No, Physician PCP - General 01/09/20
--- OUTSIDE RECORDS SUMMARY | 2024-11-06 16:53 | XMS_ITS | Clinical Summary ---
Author Organization [facility] Address [address] [place] [address] Care Team Providers Care Hogshead Weigher Name Role Phone Unavailable Primary Care Provider Unavailabl e Source Comments [facility],non-owned Affiliates and Associated Physician Practices is amultiple site organization consisting of ambulatory clinics and hospital sitesin [place], [place], [place] and [place]. This disclosure is being madepursuant to the Care Everywhere program and may not contain all information available regarding this patient. Last updated 18.[facility] Medications * Be aware that medications may [...] 04/09/2017 6:41 AM CDT Plan of Treatment Health Maintenance Due Date Last Done Comments NIESHA (AGES 45-75) - COL ON CA SCREENING 1963 COLON MONITORING 1963 COLONOSCOPY - COLON CA SCREENING 1963 CT COLONOGRAPHY - COLON CA SCREENING 1963 Colorectal Cancer Screening 1963 FIT - COLON CA SCREENING 1963 FLEX SIG - COLON CA SCREENING 1963 PAP SMEAR 1963 HIV SCREENING 1978 HEPATITIS C SCREENING 07/05/1981 DTAP/TDAP/TD VACCINES (1 - Tdap) 1982 PNEUMOCOCCAL VACCINE 50+ (1 of 2 - PCV) 1982 PNEUMOCOCCAL VACCINE (1 of 2 - PCV) 1982 ZOSTER VACCINE (1 of 2) 2013 LIPID TESTING 04/14/2022 04/14/2017 Respiratory Syncytial Virus (RSV) Vaccine Pt: or over 60 yrs (1 - Risk 60-74 years 1-dose series) 2023 MAMMOGRAM 03/08/2024 03/08/2022 COVID-19 VACCINE (1 - 2023-2 5 season) 2024 INFLUENZA VACCINE (#1) 2024 2, 06/20/2017 DEPRESSION SCREENING 09/03/2024 HEPATITIS B VACCINE Aged Out No longe r eligible based on patient's age to complete this topic HIB VACCINE Aged Out No longer eligi ble based on patient's age to complete this topic HPV VACCINE Aged Out No longer eligi ble based on patient's age to complete this topic MENINGOCOCCAL (Group B) VACCINE Aged Out No longer eligible b ased on patient's age to complete this topic MENINGOCOCCAL VACCINE Aged Out No fernando juan eligible based on patient's age to complete this topic Procedures Procedure Name Priority Date/Time Associated Diagnosis Comments LIPID PROFILE Timed 04/14/2017 5:29 AM CDT from Last 3 Months or Most Recently Relevant to Health Maintenance Results * (ABNORMAL) LIPID PROFILE (04/14/2017 5:29 AM CDT) Cholesterol Total 176 <200 mg/dL [facility] HDL 45 >40 mg/dL [facility] Comment: ATP III Classification of HDL Cholesterol: <40 mg/dL: Considered a major risk factor. >60 mg/dL: Considered a negative risk factor. LDL Calculated 116(H) <100 mg/dL [facility] Comment: ATP III Classification of LDL Cholesterol: <100 mg/dL: Optimal 100 - 129 mg/dL: Near Optimal/Above Optimal 130 - 159 mg/dL: Borderline High 160 - 189 mg/dL: High >190 mg/dL: Very High Triglycerides 74 <150 mg/dL [facility] Comment: ATP III Classification of Triglycerides: <150 mg/dL: Normal 150 - 199 mg/dL: Borderline High 200 - 400 mg/dL: High >500 mg/dL: Very High Blood specimen (specimen) BLOOD SPECIMEN / Unknown 04/14/2017 5:29 AM CDT 04/14/2017 6:01 AM CDT Cornelio Martinez MD LAB - CHEMISTRY ORD ERABLES [facility] [address] [place] [address] from Last 3 Months or Most Recently Relevant to Health Maintenance
--- OUTSIDE RECORDS SUMMARY | 2024-11-06 16:53 | XMS_ITS | Patient Health Summary ---
Author Organization [facility] Address [address] [place] [address] Care Team Providers Care Director Of Scientific Research Name Role Phone Unavailable Primary Care Provider Unavailabl e Note from [facility],non-owned Affiliates and Associated Physician Practices is amultiple site organization consisting of ambulatory clinics and hospital sitesin [place], [place], [place] and [place]. This disclosure is being madepursuant to the Care Everywhere program and may not contain all information available regarding this patient. Last updated 18.[facility] Medications * Be aware that medications may not be up to date on this document. Alwaysverify current medications with the patient. * dextrose 50 % IV(Started 04/17/2017) 25 mL by Intravenous route. * dextrose 50 % IV(Started 04/17/2017) 50 mL by Intravenous route. * albuterol (PROVENTIL;VENTOLIN) (5 MG/ML) 0.5% nebulizer solution(Started 04/17/2017) 2.5 mg q6h PRN (Wheezing). 3 refills left * insulin lispro (HUMALOG) 100 UNIT/ML vial(Started 04/17/2017) Inject 0 Units subcutaneously. 3 refills left * lisinopril (PRINIVIL; ZESTRIL) 10 MG tablet(Started 04/17/2017) Take 10 mg by mouth DAILY. 3 refills left * docusate sodium (COLACE) 100 MG capsule(Started 04/17/2017) Take 100 mg by mouth BID PRN (Constipation). * sennosides (SENOKOT) 8.6 MG tablet(Started 04/17/2017) Take 8.6 mg by mouth. * insulin glargine (LANTUS) vial(Started 04/17/2017) Inject 20 Units subcutaneously. 3 refills left * apixaban (ELIQUIS) 5 MG tablet(Started 04/17/2017) Take 5 mg by mouth BID. * metoprolol tartrate (LOPRESSOR) 50 MG tablet(Started 04/17/2017) Take 50 mg by mouth q8h. * polyethylene glycol 3350 (MIRALAX) packet(Started 04/17/2017) Take 17 g by mouth DAILY. * HYDROcodone-acetaminophen (NORCO) 5-325 MG tablet(Started 04/17/2017) Take 1 tablet by mouth q4h PRN. Active Problems Problem Noted Date Diagnosed Date [...] Mass Index 41.54 04/09/2017 6:41 AM CDT Procedures * CARDIAC EKG ORDER(Performed 04/23/2020) * GLUCOSE ACCUCHECK(Performed 04/17/2017) * GLUCOSE ACCUCHECK(Performed 04/17/2017) * GLUCOSE ACCUCHECK(Performed 04/17/2017) * PHOSPHORUS BLOOD(Performed 04/17/2017) * MAGNESIUM BLOOD(Performed 04/17/2017) * BASIC METABOLIC PANEL (CALCIUM TOTAL)(Performed 04/17/2017) * CBC W AUTO DIFFERENTIAL(Performed 04/17/2017) * CBC W AUTO DIFFERENTIAL(Performed 04/17/2017) * GLUCOSE ACCUCHECK(Performed 04/17/2017) * GLUCOSE ACCUCHECK(Performed 04/16/2017) * GLUCOSE ACCUCHECK(Performed 04/16/2017) * GLUCOSE ACCUCHECK(Performed 04/16/2017) * GLUCOSE ACCUCHECK(Performed 04/16/2017) * GLUCOSE ACCUCHECK(Performed 04/16/2017) * PHOSPHORUS BLOOD(Performed 04/16/2017) * MAGNESIUM BLOOD(Performed 04/16/2017) * BASIC METABOLIC PANEL (CALCIUM TOTAL)(Performed 04/16/2017) * CBC W AUTO DIFFERENTIAL(Performed 04/16/2017) * CBC W AUTO DIFFERENTIAL(Performed 04/16/2017) * GLUCOSE ACCUCHECK(Performed 04/16/2017) * GLUCOSE ACCUCHECK(Performed 04/15/2017) * GLUCOSE ACCUCHECK(Performed 04/15/2017) * GLUCOSE ACCUCHECK(Performed 04/15/2017) * GLUCOSE ACCUCHECK(Performed 04/15/2017) * BASIC METABOLIC PANEL (CALCIUM TOTAL)(Performed 04/15/2017) * PHOSPHORUS BLOOD(Performed 04/15/2017) * MAGNESIUM BLOOD(Performed 04/15/2017) * CBC W AUTO DIFFERENTIAL(Performed 04/15/2017) * CBC W AUTO DIFFERENTIAL(Performed 04/15/2017) * GLUCOSE ACCUCHECK(Performed 04/15/2017) * GLUCOSE ACCUCHECK(Performed 04/15/2017) * GLUCOSE ACCUCHECK(Performed 04/14/2017) * GLUCOSE ACCUCHECK(Performed 04/14/2017) * GLUCOSE ACCUCHECK(Performed 04/14/2017) * GLUCOSE ACCUCHECK(Performed 04/14/2017) * CBC W AUTO DIFFERENTIAL(Performed 04/14/2017) * PHOSPHORUS BLOOD(Performed 04/14/2017) * MAGNESIUM BLOOD(Performed 04/14/2017) * BASIC METABOLIC PANEL (CALCIUM TOTAL)(Performed 04/14/2017) * LIPID PROFILE(Performed 04/14/2017) * CBC W AUTO DIFFERENTIAL(Performed 04/14/2017) * XR CHEST 1VW PORTABLE(Performed 04/14/2017) * GLUCOSE ACCUCHECK(Performed 04/14/2017) * GLUCOSE ACCUCHECK(Performed 04/13/2017) * GLUCOSE ACCUCHECK(Performed 04/13/2017) * GLUCOSE ACCUCHECK(Performed 04/13/2017) * GLUCOSE ACCUCHECK(Performed 04/13/2017) * B-TYPE NATRIURETIC PEPTIDE(Performed 04/13/2017) * CBC W AUTO DIFFERENTIAL(Performed 04/13/2017) * PHOSPHORUS BLOOD(Performed 04/13/2017) * MAGNESIUM BLOOD(Performed 04/13/2017) * BASIC METABOLIC PANEL (CALCIUM TOTAL)(Performed 04/13/2017) * CBC W AUTO DIFFERENTIAL(Performed 04/13/2017) * TSH(Performed 04/13/2017) * T3 TOTAL(Performed 04/13/2017) * T4 FREE(Performed 04/13/2017) * T4 TOTAL(Performed 04/13/2017) * GLUCOSE ACCUCHECK(Performed 04/13/2017) * GLUCOSE ACCUCHECK(Performed 04/13/2017) * ECHO COMPLETE(Performed 04/13/2017) * GLUCOSE ACCUCHECK(Performed 04/12/2017) * GLUCOSE ACCUCHECK(Performed 04/12/2017) * XR CHEST 1VW PORTABLE(Performed 04/12/2017) * GLUCOSE ACCUCHECK(Performed 04/12/2017) * GLUCOSE ACCUCHECK(Performed 04/12/2017) * CBC W AUTO DIFFERENTIAL(Performed 04/12/2017) * PHOSPHORUS BLOOD(Performed 04/12/2017) * MAGNESIUM BLOOD(Performed 04/12/2017) * BASIC METABOLIC PANEL (CALCIUM TOTAL)(Performed 04/12/2017) * CBC W AUTO DIFFERENTIAL(Performed 04/12/2017) * GLUCOSE ACCUCHECK(Performed 04/12/2017) * GLUCOSE ACCUCHECK(Performed 04/12/2017) * GLUCOSE ACCUCHECK(Performed 04/11/2017) * GLUCOSE ACCUCHECK(Performed 04/11/2017) * GLUCOSE ACCUCHECK(Performed 04/11/2017) * GLUCOSE ACCUCHECK(Performed 04/11/2017) * GLUCOSE ACCUCHECK(Performed 04/11/2017) * XR CHEST 1VW PORTABLE(Performed 04/11/2017) * BASIC METABOLIC PANEL (CALCIUM TOTAL)(Performed 04/11/2017) * PHOSPHORUS BLOOD(Performed 04/11/2017) * MAGNESIUM BLOOD(Performed 04/11/2017) * CBC W AUTO DIFFERENTIAL(Performed 04/11/2017) * CBC W AUTO DIFFERENTIAL(Performed 04/11/2017) * GLUCOSE ACCUCHECK(Performed 04/11/2017) * GLUCOSE ACCUCHECK(Performed 04/11/2017) * EKG 12-LEAD(Performed 04/11/2017) * GLUCOSE ACCUCHECK(Performed 04/10/2017) * GLUCOSE ACCUCHECK(Performed 04/10/2017) * GLUCOSE ACCUCHECK(Performed 04/10/2017) * PREALBUMIN(Performed 04/10/2017) * GLUCOSE ACCUCHECK(Performed 04/10/2017) * CBC W AUTO DIFFERENTIAL(Performed 04/10/2017) * ALBUMIN BLOOD(Performed 04/10/2017) * BASIC METABOLIC PANEL (CALCIUM TOTAL)(Performed 04/10/2017) * PHOSPHORUS BLOOD(Performed 04/10/2017) * MAGNESIUM BLOOD(Performed 04/10/2017) * CBC W AUTO DIFFERENTIAL(Performed 04/10/2017) * GLUCOSE ACCUCHECK(Performed 04/10/2017) * GLUCOSE ACCUCHECK(Performed 04/09/2017) * GLUCOSE ACCUCHECK(Performed 04/09/2017) * GLUCOSE ACCUCHECK(Performed 04/09/2017) * GLUCOSE ACCUCHECK(Performed 04/09/2017) * GLUCOSE ACCUCHECK(Performed 04/09/2017) * TYPE + SCREEN PANEL(Performed 04/09/2017) * CBC W AUTO DIFFERENTIAL(Performed 04/09/2017) * BASIC METABOLIC PANEL (CALCIUM TOTAL)(Performed 04/09/2017) * PHOSPHORUS BLOOD(Performed 04/09/2017) * MAGNESIUM BLOOD(Performed 04/09/2017) * CBC W AUTO DIFFERENTIAL(Performed 04/09/2017) * GLUCOSE ACCUCHECK(Performed 04/09/2017) * GLUCOSE ACCUCHECK(Performed 04/09/2017) * GLUCOSE ACCUCHECK(Performed 04/08/2017) * GLUCOSE ACCUCHECK(Performed 04/08/2017) * GLUCOSE ACCUCHECK(Performed 04/08/2017) * GLUCOSE ACCUCHECK(Performed 04/08/2017) * DIFFERENTIAL MANUAL(Performed 04/08/2017) * CBC W AUTO DIFFERENTIAL(Performed 04/08/2017) * BASIC METABOLIC PANEL (CALCIUM TOTAL)(Performed 04/08/2017) * PHOSPHORUS BLOOD(Performed 04/08/2017) * MAGNESIUM BLOOD(Performed 04/08/2017) * CBC W AUTO DIFFERENTIAL(Performed 04/08/2017) * GLUCOSE ACCUCHECK(Performed 04/07/2017) * GLUCOSE ACCUCHECK(Performed 04/07/2017) * GLUCOSE ACCUCHECK(Performed 04/07/2017) * GLUCOSE ACCUCHECK(Performed 04/07/2017) * DIFFERENTIAL MANUAL(Performed 04/07/2017) * CBC W AUTO DIFFERENTIAL(Performed 04/07/2017) * BASIC METABOLIC PANEL (CALCIUM TOTAL)(Performed 04/07/2017) * PHOSPHORUS BLOOD(Performed 04/07/2017) * MAGNESIUM BLOOD(Performed 04/07/2017) * CBC W AUTO DIFFERENTIAL(Performed 04/07/2017) * GLUCOSE ACCUCHECK(Performed 04/07/2017) * GLUCOSE ACCUCHECK(Performed 04/07/2017) * VANCOMYCIN LEVEL TROUGH(Performed 04/06/2017) * GLUCOSE ACCUCHECK(Performed 04/06/2017) * GLUCOSE ACCUCHECK(Performed 04/06/2017) * GLUCOSE ACCUCHECK(Performed 04/06/2017) * GLUCOSE ACCUCHECK(Performed 04/06/2017) * GLUCOSE ACCUCHECK(Performed 04/06/2017) * DIFFERENTIAL MANUAL(Performed 04/06/2017) * CBC W AUTO DIFFERENTIAL(Performed 04/06/2017) * PHOSPHORUS BLOOD(Performed 04/06/2017) * MAGNESIUM BLOOD(Performed 04/06/2017) * CBC W AUTO DIFFERENTIAL(Performed 04/06/2017) * GLUCOSE ACCUCHECK(Performed 04/06/2017) * GLUCOSE ACCUCHECK(Performed 04/06/2017) * GLUCOSE ACCUCHECK(Performed 04/06/2017) * GLUCOSE ACCUCHECK(Performed 04/06/2017) * GLUCOSE ACCUCHECK(Performed 04/06/2017) * GLUCOSE ACCUCHECK(Performed 04/06/2017) * BASIC METABOLIC PANEL (CALCIUM TOTAL)(Performed 04/06/2017) * DIFFERENTIAL MANUAL(Performed 04/06/2017) * CBC W AUTO DIFFERENTIAL(Performed 04/06/2017) * MAGNESIUM BLOOD(Performed 04/06/2017) * PHOSPHORUS BLOOD(Performed 04/06/2017) * CBC W AUTO DIFFERENTIAL(Performed 04/06/2017) * GLUCOSE ACCUCHECK(Performed 04/06/2017) * EKG 12-LEAD(Performed 04/06/2017) * GLUCOSE ACCUCHECK(Performed 04/05/2017) * GLUCOSE ACCUCHECK(Performed 04/05/2017) * GLUCOSE ACCUCHECK(Performed 04/05/2017) * GLUCOSE ACCUCHECK(Performed 04/05/2017) * GLUCOSE ACCUCHECK(Performed 04/05/2017) * GLUCOSE ACCUCHECK(Performed 04/05/2017) * GLUCOSE ACCUCHECK(Performed 04/05/2017) * GLUCOSE ACCUCHECK(Performed 04/05/2017) * GLUCOSE ACCUCHECK(Performed 04/05/2017) * GLUCOSE ACCUCHECK(Performed 04/05/2017) * GLUCOSE ACCUCHECK(Performed 04/05/2017) * GLUCOSE ACCUCHECK(Performed 04/05/2017) * GLUCOSE ACCUCHECK(Performed 04/05/2017) * GLUCOSE ACCUCHECK(Performed 04/05/2017) * VANCOMYCIN LEVEL TROUGH(Performed 04/05/2017) * GLUCOSE ACCUCHECK(Performed 04/05/2017) * GLUCOSE ACCUCHECK(Performed 04/05/2017) * GLUCOSE ACCUCHECK(Performed 04/05/2017) * GLUCOSE ACCUCHECK(Performed 04/05/2017) * GLUCOSE ACCUCHECK(Performed 04/05/2017) * GLUCOSE ACCUCHECK(Performed 04/05/2017) * GLUCOSE ACCUCHECK(Performed 04/05/2017) * GLUCOSE ACCUCHECK(Performed 04/05/2017) * GLUCOSE ACCUCHECK(Performed 04/05/2017) * GLUCOSE ACCUCHECK(Performed 04/05/2017) * BASIC METABOLIC PANEL (CALCIUM TOTAL)(Performed 04/05/2017) * DIFFERENTIAL MANUAL(Performed 04/05/2017) * PHOSPHORUS BLOOD(Performed 04/05/2017) * CBC W AUTO DIFFERENTIAL(Performed 04/05/2017) * MAGNESIUM BLOOD(Performed 04/05/2017) * CBC W AUTO DIFFERENTIAL(Performed 04/05/2017) * GLUCOSE ACCUCHECK(Performed 04/04/2017) * GLUCOSE ACCUCHECK(Performed 04/04/2017) * GLUCOSE ACCUCHECK(Performed 04/04/2017) * GLUCOSE ACCUCHECK(Performed 04/04/2017) * MAGNESIUM BLOOD(Performed 04/04/2017) * GLUCOSE ACCUCHECK(Performed 04/04/2017) * GLUCOSE ACCUCHECK(Performed 04/04/2017) * GLUCOSE ACCUCHECK(Performed 04/04/2017) * GLUCOSE ACCUCHECK(Performed 04/04/2017) * GLUCOSE ACCUCHECK(Performed 04/04/2017) * GLUCOSE ACCUCHECK(Performed 04/04/2017) * VANCOMYCIN LEVEL TROUGH(Performed 04/04/2017) * BASIC METABOLIC PANEL (CALCIUM TOTAL)(Performed 04/04/2017) * GLUCOSE ACCUCHECK(Performed 04/04/2017) * GLUCOSE ACCUCHECK(Performed 04/04/2017) * GLUCOSE ACCUCHECK(Performed 04/04/2017) * GLUCOSE ACCUCHECK(Performed 04/04/2017) * GLUCOSE ACCUCHECK(Performed 04/04/2017) * GLUCOSE ACCUCHECK(Performed 04/04/2017) * GLUCOSE ACCUCHECK(Performed 04/04/2017) * GLUCOSE ACCUCHECK(Performed 04/04/2017) * GLUCOSE ACCUCHECK(Performed 04/04/2017) * GLUCOSE ACCUCHECK(Performed 04/03/2017) * MAGNESIUM BLOOD(Performed 04/03/2017) * PHOSPHORUS BLOOD(Performed 04/03/2017) * BASIC METABOLIC PANEL (CALCIUM TOTAL)(Performed 04/03/2017) * CBC W AUTO DIFFERENTIAL(Performed 04/03/2017) * BLOOD GASES ARTERIAL(Performed 04/03/2017) * CBC W AUTO DIFFERENTIAL(Performed 04/03/2017) * GLUCOSE ACCUCHECK(Performed 04/03/2017) * GLUCOSE ACCUCHECK(Performed 04/03/2017) * GLUCOSE ACCUCHECK(Performed 04/03/2017) * GLUCOSE ACCUCHECK(Performed 04/03/2017) * GLUCOSE ACCUCHECK(Performed 04/03/2017) * GLUCOSE ACCUCHECK(Performed 04/03/2017) * GLUCOSE ACCUCHECK(Performed 04/03/2017) * GLUCOSE ACCUCHECK(Performed 04/03/2017) * LACTIC ACID BLOOD(Performed 04/03/2017) * GLUCOSE ACCUCHECK(Performed 04/03/2017) * GLUCOSE ACCUCHECK(Performed 04/03/2017) * GLUCOSE ACCUCHECK(Performed 04/03/2017) * GLUCOSE ACCUCHECK(Performed 04/03/2017) * GLUCOSE ACCUCHECK(Performed 04/03/2017) * XR CHEST 1VW PORTABLE(Performed 04/03/2017) * GLUCOSE ACCUCHECK(Performed 04/03/2017) * BLOOD GASES ART COMPLETE [facility] OR(Performed 04/03/2017) * CULTURE ANAEROBE(Performed 04/03/2017) * CULTURE AEROBIC(Performed 04/03/2017) * PATHOLOGY TISSUE(Performed 04/03/2017) * BLOOD GASES ART COMPLETE [facility] OR(Performed 04/03/2017) * GLUCOSE ACCUCHECK(Performed 04/03/2017) * GLUCOSE ACCUCHECK(Performed 04/03/2017) * GLUCOSE ACCUCHECK(Performed 04/03/2017) * CULTURE BLOOD(Performed 04/03/2017) * PTT [facility](Performed 04/03/2017) * PT-INR [facility](Performed 04/03/2017) * CULTURE BLOOD(Performed 04/03/2017) * BLOOD GASES CHRISTIANE(Performed 04/03/2017) * HYDROXYBUTYRATE BETA(Performed 04/03/2017) * DIFFERENTIAL MANUAL(Performed 04/03/2017) * COMPREHENSIVE METABOLIC PANEL(Performed 04/03/2017) * HYDROXYBUTYRATE BETA(Performed 04/03/2017) * PHOSPHORUS BLOOD(Performed 04/03/2017) * MAGNESIUM BLOOD(Performed 04/03/2017) * CBC W AUTO DIFFERENTIAL(Performed 04/03/2017) * TYPE + SCREEN PANEL(Performed 04/03/2017) * HEMOGLOBIN A1C(Performed 04/03/2017) * CBC W AUTO DIFFERENTIAL(Performed 04/03/2017) * GLUCOSE - POINT OF CARE (AMB) [facility](Performed 04/03/2017) * GLUCOSE - POINT OF CARE (AMB) [facility](Performed 04/03/2017) * GLUCOSE ACCUCHECK(Performed 04/03/2017) * EKG 12-LEAD(Performed 04/03/2017) Results * CARDIAC EKG ORDER (04/23/2020 7:06 AM CDT) Narrative 04/23/2020 7:06 AM CDT Ordered by an unspecified provider. Scanned Document CARDIAC SERVICES ORD ERABLES * GLUCOSE ACCUCHECK (04/17/2017 12:39 PM CDT) Only the most recent of136 resultswithin the time period is included. Glucose, Fingerstick 113 70-115mg/d L mg/dL [facility] (BEAKER) Comment:Profile Stitching Machine Operator: PEDRO PABLO MCCOLLUM 04/17/2017 12:3 9 PM CDT Cornelio Martinez MD LAB - CHEMISTRY ORD ERABLES [facility]) * (ABNORMAL) BASIC METABOLIC PANEL (CALCIUM TOTAL) (04/17/2017 3:45 AM CDT) Only the most recent of15 resultswithin the time period is included. BUN 21 7 - 26 mg/dL [facility] Creatinine 1.1 0.6 - 1.2 mg/dL [facility] Sodium 139 136 - 145 mmol/L [facility] Potassium 4.0 3.5 - 4.5 mmol/L [facility] Chloride 104 98 - 107 mmol/L [facility] CO2 25 22 - 29 mmol/L [facility] Glucose 103 70 - 115 mg/dL [facility] Calcium 8.5 8.4 - 10.2 mg/dL [facility] Anion Gap 14 8 - 18 [facility] BUN/Creatinine Ratio 19 7 - 23 [facility] Osmolality Calculated 291 270 - 300 mOsm/kg [facility] eGFR 52(L) >60 mL/min/1.7 3 m2 [facility] Blood specimen (specimen) BLOOD SPECIMEN / Unknown 04/17/2017 3:45 AM CDT 04/17/2017 3:59 AM CDT Cornelio Martinez MD LAB - CHEMISTRY ORD ERABLES Performing Organization Address City/[facility]/ZIP Co de Phone Number [address] [phone] * PHOSPHORUS BLOOD (04/17/2017 3:45 AM CDT) Only the most recent of16 resultswithin the time period is included. Phosphorus 3.6 2.3 - 4.7 mg/dL [facility] Blood specimen (specimen) BLOOD SPECIMEN / Unknown 04/17/2017 3:45 AM CDT 04/17/2017 3:59 AM CDT Cornelio Martinez MD LAB - CHEMISTRY ORD ERABLES [address] [phone] * MAGNESIUM BLOOD (04/17/2017 3:45 AM CDT) Only the most recent of17 resultswithin the time period is included. [facility] Magnesium 1.8 1.6 - 2.6 mg/dL [facility] Blood specimen (specimen) BLOOD SPECIMEN / Unknown 04/17/2017 3:45 AM CDT 04/17/2017 3:59 AM CDT Cornelio Martinez MD LAB - CHEMISTRY ORD ERABLES Performing Organization Address City/[facility]/ZIP Co de Phone Number [address] [phone] * (ABNORMAL) CBC W AUTO DIFFERENTIAL (04/17/2017 3:45 AM CDT) Only the most recent of32 resultswithin the time period is included. [facility] WBC 8.9 3.5 - 10.5 10 3/uL [facility] RBC 3.30(L) 3.90 - 5.00 10 6/uL [facility] Hemoglobin 10.4(L) 12.0 - 15.5 g/dL [facility] Hematocrit 31.6(L) 35.0 - 45.0 % [facility] MCV 95.8 81.0 - 97.0 fL [facility] MCH 31.5 28.0 - 34.0 pg [facility] MCHC 32.9 32.0 - 36.0 g/dL [facility] Platelet Count 537(H) 150 - 400 10 3/uL [facility] RDW-SD 47.5 36.0 - 50.0 fL [facility] RDW-CV 13.7 11.2 - 14.8 % [facility] MPV 9.1(L) 9.3 - 12.8 fL [facility] Neutrophils % 55.1 35.0 - 70.0 % [facility] Lymphocytes % 32.2 19.7 - 55.1 % [facility] Monocytes % 10.0 3.0 - 15.0 % [facility] Eosinophils % 2.4 0.0 - 6.0 % [facility] Basophil % 0.3 0.0 - 1.5 % [facility] Neutrophils Absolute 4.9 1.6 - 7.0 10 3/uL [facility] Lymphocyte Absolute 2.9 0.8 - 2.9 10 3/uL [facility] Monocytes Absolute 0.89(H) 0.14 - 0.66 10 3/uL [facility] Eosinophils Absolute 0.21 0.00 - 0.22 10 3/uL [facility] Basophils Absolute 0.03 0.00 - 0.06 10 3/uL [facility] Immature Granulocytes % 0.4 0.0 - 1.0 % [facility] Blood specimen (specimen) BLOOD SPECIMEN / Unknown 04/17/2017 3:45 AM CDT 04/17/2017 3:59 AM CDT Cornelio Martinez MD LAB - HEMATOLOGY OR DERABLES Performing Organization Address City/State/[facility] Co de Phone Number [address] [phone] * (ABNORMAL) LIPID PROFILE (04/14/2017 5:29 AM CDT) Cholesterol Total 176 <200 mg/dL [facility] HDL 45 >40 mg/dL [facility] Comment: ATP III Classification of HDL Cholesterol: <40 mg/dL: Considered a major risk factor. >60 mg/dL: Considered a negative risk factor. LDL Calculated 116(H) <100 mg/dL [facility] Comment: ATP III Classification of LDL Cholesterol: <100 mg/dL: Optimal 100 - 129 mg/dL: Near Optimal/Above Optimal 130 - 159 mg/dL: Borderline High 160 - 189 mg/dL: High >190 mg/dL: Very High Triglycerides 74 <150 mg/dL [facility] Comment: ATP III Classification of Triglycerides: <150 mg/dL: Normal 150 - 199 mg/dL: Borderline High 200 - 400 mg/dL: High >500 mg/dL: Very High Blood specimen (specimen) BLOOD SPECIMEN / Unknown 04/14/2017 5:29 AM CDT 04/14/2017 6:01 AM CDT Cornelio Martinez MD LAB - CHEMISTRY ORD ERABLES [place] [id number] [address] [phone] * XR CHEST 1VW PORTABLE (04/14/2017 4:57 AM CDT) Only the most recent of4 resultswithin the time period is included. Anatomical Region Laterality Modality Chest Other Impressions 04/14/2017 4:29 PM CDT IMPRESSION: Small bilateral pleural effusions with bibasilar atelectasis and/or airspace disease are not significantly changed compared to the prior exam. Mild bilateral interstitial opacities are also unchanged and may represent pulmonary vascular congestion, mild pulmonary edema, or pneumonia. There is no pneumothorax. The cardiac silhouette is mildly enlarged. The mediastinal silhouette is normal. Dictated by Shakeel Leal MD (president [employer]). Dr. TRISTIN Gonzales M.D. have personally reviewed and interpreted this examination/study. This report was electronically signed by TRISTIN WERNER M.D. on 04/14/2017 4:29 PM . Narrative 04/14/2017 4:29 PM CDT EXAMINATION: PX CHEST 1 VW DATE: 04/14/2017 4:58 AM HISTORY: desaturations COMPARISON: Comparison is made with a study from 04/12/2017 Procedure Note Tristin Werner MD - 11/30/2017 EXAMINATION: PX CHEST 1 VW DATE: 04/14/2017 4:58 AM HISTORY: desaturations COMPARISON: Comparison is made with a study from 04/12/2017 IMPRESSION IMPRESSION: Small bilateral pleural effusions with bibasilar atelectasis and/orairspace disease are not significantly changed compared to the prior exam.Mild bilateral interstitial opacities are also unchanged and may representpulmonary vascular congestion, mild pulmonary edema, or pneumonia. There is no pneumothorax. The cardiacsilhouette is mildly enlarged. The mediastinal silhouette is normal. Dictated by Shakeel Leal MD (president [employer]). I, Dr. TRISTIN ALPHONSO, M.D. have personally reviewed and interpreted thisexamination/study. This report was electronically signed by TRISTIN WERNER M.D. on04/14/2017 4:29 PM . Cornelio Martinez MD DIAGNOSTIC IMAGING ORDERABLES * (ABNORMAL) B-TYPE NATRIURETIC PEPTIDE (04/13/2017 5:40 AM CDT) BNP 198(H) See Comment pg/mL [facility] Comment: A decision threshold of 100 pg/mL has been demonstrated to provide the maximal combination of sensitivity, specificity and predictive value for the diagnosis of congestive heart failure (CHF). Virtually all patients with no evidence of CHF have BNP values less than 100 pg/mL. A BNP value greater than 100 pg/mL is consistent with the diagnosis of CHF in the appropriate clinical setting. In a study of 693 patients (male and female) with diagnosed CHF, the following values were determined based on the NYHA functional classification system: NYHA Functional Class Mean Valule (pg/mL) % >100 pg/mL I 320 58.1 II 432 73.0 III 656 79.0 IV 1635 98.3 Blood specimen (specimen) BLOOD SPECIMEN / Unknown 04/13/2017 5:40 AM CDT 04/13/2017 5:43 AM CDT Cornelio Martinez MD LAB - CHEMISTRY ORD ERABLES [address] [phone] * (ABNORMAL) TSH (04/13/2017 5:03 AM CDT) TSH 5.783(H) 0.350 - 4.940 uIU/mL [facility] Blood specimen (specimen) BLOOD SPECIMEN / Unknown 04/13/2017 5:03 AM CDT 04/13/2017 6:34 PM CDT Cornelio Martinez MD LAB - CHEMISTRY ORD ERABLES [address] [phone] * T4 FREE (04/13/2017 5:03 AM CDT) T4 Free 1.2 0.7 - 1.5 ng/dL [facility] Blood specimen (specimen) BLOOD SPECIMEN / Unknown 04/13/2017 5:03 AM CDT 04/13/2017 6:34 PM CDT Cornelio Martinez MD LAB - CHEMISTRY ORD ERABLES Performing Organization Address City/[facility]/ZIP Co de Phone Number [address] [phone] * T4 TOTAL (04/13/2017 5:03 AM CDT) T4 Total 7.9 4.9 - 11.7 mcg/dL [facility] Blood specimen (specimen) BLOOD SPECIMEN / Unknown 04/13/2017 5:03 AM CDT 04/13/2017 6:34 PM CDT Cornelio Martinez MD LAB - CHEMISTRY ORD ERABLES Performing Organization Address [facility] Co de Phone Number [address] [phone] * T3 TOTAL (04/13/2017 5:03 AM CDT) Pathologist [facility] T3 Total 59 58 - 159 ng/dL [facility] Blood specimen (specimen) BLOOD SPECIMEN / Unknown 04/13/2017 5:03 AM CDT 04/13/2017 6:34 PM CDT Cornelio Martinez MD LAB - CHEMISTRY ORD ERABLES Performing Organization Address [facility] Co de Phone Number [address] [phone] * ECHO W DOPPLER AND COLOR FLOW (04/13/2017 12:00 AM CDT) Anatomical Region Laterality Modality Other 04/13/2017 Cornelio Martinez MD ECHOCARDIOGRAPHY RA DIANT * EKG 12-LEAD (04/11/2017 12:00 AM CDT) Only the most recent of3 resultswithin the time period is included. EKG [facility] Comment: Exam Date/Time: Apr 11 2017 00:25:07 Test Reason : arrythmia Blood Pressure : / mmHG Vent. Rate : 115 BPM Atrial Rate : 071 BPM P-R Int : 000 ms QRS Dur : 084 ms QT Int : 334 ms P-R-T Axes : 000 059 -23 degrees QTc Int : 462 ms Atrial fibrillation with rapid ventricular response Nonspecific T wave abnormality Abnormal ECG When compared with ECG of 06-APR-2017 08:32, Heart rate has increased by 6 bpm Confirmed by Deepti STRONG, WEST ([id number]), art editor Jadon Ernst ([id number]) on 04/16/2017 10:33:37 AM Referred By: REFERRING NO Confirmed By:WEST STRONG M.D. 04/11/2017 Cornelio Martinez MD ECG ORDERABLES [facility] * (ABNORMAL) PREALBUMIN (04/10/2017 9:59 AM CDT) [facility] Prealbumin 10(L) 16 - 45 mg/dL [facility] Blood specimen (specimen) BLOOD SPECIMEN / Unknown 04/10/2017 9:59 AM CDT 04/10/2017 10:03 AM CDT Cornelio Martinez MD LAB - CHEMISTRY ORD ERABLES [address] [phone] * (ABNORMAL) ALBUMIN BLOOD (04/10/2017 4:59 AM CDT) [facility] Albumin 1.6(L) 3.4 - 5.0 g/dL [facility] Blood specimen (specimen) BLOOD SPECIMEN / Unknown 04/10/2017 4:59 AM CDT 04/10/2017 5:03 AM CDT Cornelio Martinez MD LAB - CHEMISTRY ORD ERABLES [facility] [address] [phone] * TYPE + SCREEN PANEL (04/09/2017 5:23 AM CDT) Only the most recent of2 resultswithin the time period is included. Typem A POS [facility] Antibody Screen NEG [facility] Blood specimen (specimen) 04/09/2017 5:23 AM CDT 04/09/2017 5:34 AM CDT Cornelio Martinez MD LAB - BLOOD BANK OR DERABLES Performing Organization Address [facility] Co de Phone Number [facility] [address] * (ABNORMAL) DIFFERENTIAL MANUAL (04/08/2017 6:16 AM CDT) Only the most recent of6 resultswithin the time period is included. Pathologist [facility] WBC (corrected for NRBC) 9.2 10 3/uL [facility] Total Cell Count 100 [facility] Neutrophils Absolute Manual 6.53 1.60 - 7.00 10 3/uL [facility] Comment:(BANDS+SEGS) x WBC = NEUT # (ANC) Lymphocyte Absolute Manual 1.56 0.80 - 2.90 10 3/uL [facility] Monocytes Absolute Manual 0.64 0.14 - 0.66 10 3/uL [facility] Eosinophils Absolute Manual 0.18 0.00 - 0.22 10 3/uL [facility] Band % Manual 6 0 - 10 % [facility] Neutrophil % Manual 65(H) 30 - 60 % [facility] Lymphocyte % Manual 17(L) 20 - 45 % [facility] Monocytes % Manual 7 2 - 10 % [facility] Eosinophils % Manual 2 1 - 6 % [facility] Metamyelocyte % Manual 2(H) 0 % [facility] Myelocytes % Manual 1(H) 0 % [facility] nRBC Manual 1(H) 0 /100 WBC [facility] Platelet Estimate Adequate Adequate [facility] RBC Morphology Normal [facility] Blood specimen (specimen) BLOOD SPECIMEN / Unknown 04/08/2017 6:16 AM CDT 04/08/2017 6:23 AM CDT Cornelio Martinez MD LAB - HEMATOLOGY OR DERABLES Performing Organization Address [facility]/ZIP Co de Phone Number [address] [phone] * (ABNORMAL) VANCOMYCIN LEVEL TROUGH (04/06/2017 10:29 PM CDT) Only the most recent of3 resultswithin the time period is included. Vancomycin Trough 23.5(H) 10.0 - 20.0 mcg/mL [facility] Blood specimen (specimen) BLOOD SPECIMEN / Unknown 04/06/2017 10:29 PM CDT 04/06/2017 10:32 PM CDT Cornelio Martinez MD LAB - CHEMISTRY ORD ERABLES Performing Organization Address [facility] Co de Phone Number [address] [phone] * (ABNORMAL) BLOOD GASES ART (04/03/2017 10:10 PM CDT) pH Arterial 7.46(H) 7.35 - 7.45 [facility] pCO2 Arterial 29(L) 35 - 45 mmHg [facility] pO2 Arterial 133(H) 77 - 101 mmHg [facility] HCO3 Arterial 20.0(L) 22.0 - 26.0 mmol/L [facility] TCO2 Arterial 20.9(L) 25.0 - 29.0 mmol/L [facility] Base Excess Arterial -2.9(L) -2.0 - 2.0 mmol/L [facility] Hemoglobin Arterial 10.2(L) 12.0 - 15.5 g/dL [facility] Oxyhemoglobin Arterial 97.3 95.0 - 100.0 % [facility] Carboxyhemoglobin 0.3 0.0 - 3.0 % [facility] Methemoglobin 0.1 0.0 - 2.0 % [facility] FI O2 Arterial 21.0 % [facility] Blood specimen (specimen) BLOOD SPECIMEN / Unknown 04/03/2017 10:10 PM CDT 04/03/2017 10:16 PM CDT Cornelio Martinez MD LAB - BLOOD GASES O RDERABLES [address] [phone] * LACTIC ACID BLOOD (04/03/2017 1:48 PM CDT) Pathologist [facility] Lactic Acid-Stat 1.2 0.5 - 2.2 mmol/L [facility] Blood specimen (specimen) BLOOD SPECIMEN / Unknown 04/03/2017 1:48 PM CDT 04/03/2017 1:51 PM CDT Cornelio Martinez MD LAB - CHEMISTRY ORD ERABLES [address] [phone] * (ABNORMAL) BLOOD GASES ART COMPLETE [facility] (04/03/2017 6:58 AM CDT) Only the most recent of2 resultswithin the time period is included. pH Arterial 7.36 7.35 - 7.45 [facility] pCO2 Arterial 37 35 - 45 mmHg [facility] pO2 Arterial 126(H) 77 - 101 mmHg [facility] HCO3 Arterial 20.7(L) 22.0 - 26.0 mmol/L [facility] TCO2 Arterial 21.9(L) 25.0 - 29.0 mmol/L [facility] Base Excess Arterial -4.1(L) -2.0 - 2.0 mmol/L [facility] Hemoglobin Arterial 12.5 12.0 - 15.5 g/dL [facility] Oxyhemoglobin Arterial 97.2 95.0 - 100.0 % [facility] Carboxyhemoglobin 0.3 0.0 - 3.0 % [facility] Methemoglobin 0.4 0.0 - 2.0 % [facility] FI O2 Arterial 60.0 % [facility] Ionized Calcium Whole Blood 1.21 mmol/L [facility] Adjusted Ionized Calcium 1.19 1.19 - 1.34 mmol/L [facility] Sodium Whole Blood 141 135 - 145 mmol/L [facility] Potassium Whole Blood 3.7 3.5 - 5.5 mmol/L [facility] Chloride Whole Blood 113(H) 101 - 111 mmol/L [facility] Glucose Whole Blood 159(H) 70 - 110 mg/dL [facility] Lactic Acid Whole Blood 2.4 0.5 - 3.4 mmol/L [facility] Blood specimen (specimen) 04/03/2017 6:58 AM CDT 04/03/2017 6:58 AM CDT Cornelio Martinez MD LAB - BLOOD GASES O RDERABLES Performing Organization Address City/[facility]/ZIP Co de Phone Number [address] [phone] * CULTURE AEROBIC (04/03/2017 6:23 AM CDT) Culture Aerobic No Growth at 72 Hours [facility] Gram Stain Rare Gram Positive bacilli [facility] Abscess 04/03/2017 6:23 AM CDT 04/03/2017 7:57 AM CDT Narrative [facility] - 04/06/2017 2:49 PM CDT Perineal abscess Specimen Type->Abscess Gram Stains are routinely screened for the presence of Polymorphonuclear Cells. Cornelio Martinez MD LAB - MICROBIOLOGY ORDERABLES Performing Organization Address [facility]/ZIP Co de Phone Number [address] [phone] * (ABNORMAL) CULTURE ANAEROBE (04/03/2017 6:23 AM CDT) Culture Anaerobic PARABACTEROIDES DISTASONIS(A) [facility] Comment:Moderate Growth - of anaerobic Parabacteroides distasonis Abscess 04/03/2017 6:23 AM CDT 04/03/2017 7:57 AM CDT Narrative [facility] - 04/10/2017 4:27 PM CDT Perineal abscess Specimen Type->Abscess Organism Antibiotic Method Susceptibility Parabacteroides distasonis Beta-Lactamase SUSCEPTIBILI TY Resistant Comment: Resistant Result: Organism is Beta-Lactamase Positive. Sensitive Result: Organism is Beta-Lactamase Negative. Beta-Lactamase positive results predict resistance to Penicillin and Ampicillin. Anaerobes can be resistant to Beta-Lactam Antimicr obial agents by mechanisms other than Beta-Lactamase production, so a negative result does not rule out resistance. Cornelio Martinez MD LAB - MICROBIOLOGY ORDERABLES [address] [phone] * PATHOLOGY TISSUE (04/03/2017 6:19 AM CDT) Surgical Pathology Tissue ACCESSION No: [id number] CLINICAL HISTORY: Jolynn gangrene, necrotizing fasciitis, A-fib with RVR. FINAL DIAGNOSIS: Wound, Perineal, Excision: - Consistent with necrotizing fasciitis GROSS DESCRIPTION: The specimen is submitted in one container fixed in formalin and labeled with the patient's name, Nany Morton, and perineal wound , and consists of approximately 20 fragments of soft tissue ranging in size from 1.0 x 0.5 x 0.4 cm up to 10.5 x 6.0 x 3.5 cm. All of the tissue specimens range in color from yellow to dark red/brown. All of the tissue fragments are soft. The largest tissue fragment has attached skin and hair. The largest fragment of tissue with skin attached has a 1.0 x 0.5 cm defect and additionally a probe-patent sinus tract measuring 5.0 cm in length x 0.2 cm in diameter in the subcutaneous tissue, which does not communicate with the skin. Transcription Coordinator sections are submitted as follows: A1 possible sinus tract and necrotic tissue, submitted en face A2 necrotic tissue with relation to normal-appearing tissue and overlying skin A3 necrotic tissue TF/edk MICROSCOPIC DESCRIPTION: Bacteria, necrotic tissue, acute and chronic inflammatory cells are present in dermis and subcutaneous tissue. The performance characteristics of all immunohistochemical and indirect immunofluorescence stains (if any) cited in this report were determined by the [facility] of [facility]. Some of these tests were developed by our own laboratory and have not been cleared or approved by the US Food and Drug Administration. The FDA does not require this test to go through premarket FDA review. These tests are used for clinical purposes. They should not be regarded as investigational or for research. This laboratory is certified under the Clinical Laboratory Improvement Amendments (CLIA) as qualified to perform high complexity clinical laboratory testing. This case has been personally reviewed and interpreted by the attending (teaching) pathologist. Final Diagnosis performed by Bela Childress M.D Ph.D. Electronically signed 04/05/2017 [facility] ([facility]) Biopsy, Excision (Soft Tissue, Other) 04/03/2017 6:19 AM CDT 04/03/2017 10:47 AM CDT [facility] ([facility]) - 04/05/2017 8:44 AM CDT Pre-op diagnosis: JOLYNN GANGRENE Cornelio Martinez MD LAB - PATHOLOGY/CYT OLOGY ORDERABLES Performing Organization Address City/[facility]/ZIP Co de Phone Number [facility] ([facility]) * CULTURE BLOOD (04/03/2017 2:40 AM CDT) Only the most recent of2 resultswithin the time period is included. Culture Blood No Growth at 5 days [facility] Blood specimen (specimen) (Venous, Peripheral) 04/03/2017 2:40 AM CDT 04/03/2017 2:43 AM CDT [facility] - 04/08/2017 2:45 AM CDT Draw 15 minutes after Culture 1 from a different site Apurva Coronado MD LAB - MICROBIOLOGY O RDERABLES [address] [phone] * PTT U (04/03/2017 2:27 AM CDT) APTT 31.5 23.0 - 38.4 Seconds [facility] Comment:Suggested therapeuti c range for full dose I.V. heparin therapy for venous thromboembolism is 66.0-91.0 seconds. Blood specimen (specimen) BLOOD SPECIMEN / Unknown 04/03/2017 2:27 AM CDT 04/03/2017 2:32 AM CDT Narrative [facility] - 04/03/2017 2:45 AM CDT Is patient on Heparin, Argatroban or Dabigatran?->N Apurva Coronado MD LAB - COAGULATION OR DERABLES Performing Organization Address [facility] Co de Phone Number [address] [phone] * (ABNORMAL) PT-INR [facility] (04/03/2017 2:27 AM CDT) PT 15.9(H) 12.1 - 14.8 Seconds [facility] INR 1.3 See Comment [facility] Comment: Suggested therapeutic range for low-intensity coumadin therapy for venous thromboembolism prophylaxis is an INR of 2.0-3.0. For high risk patients (Mitral Valve Prosthesis, Atrial Fibrillation, history of TIA/stroke), suggested prophylactic therapeutic range is an INR of 2.5-3.5. Blood specimen (specimen) BLOOD SPECIMEN / Unknown 04/03/2017 2:27 AM CDT 04/03/2017 2:32 AM CDT Narrative [facility] - 04/03/2017 2:44 AM CDT Is patient on Heparin, Argatroban or Dabigatran?->N Apurva Coronado MD LAB - COAGULATION OR DERABLES Performing Organization Address [facility] Co de Phone Number [address] [phone] * (ABNORMAL) BLOOD GASES CHRISTIANE (04/03/2017 2:26 AM CDT) pH Mixed Venous 7.35 7.30 - 7.40 [facility] pCO2 Mixed Venous 38(L) 40 - 46 mmHg [facility] pO2 Mixed Venous 29(L) 35 - 42 mmHg [facility] HCO3 Mixed Venous 20.4(L) 22.0 - 26.0 mmol/L [facility] TCO2 Mixed Venous 21.5(L) 25.0 - 29.0 mmol/L [facility] Base Excess Venous -4.7(L) -2.0 - 2.0 mmol/L [facility] Hemoglobin Mixed Venous 13.9 12.0 - 15.5 g/dL [facility] Oxyhemoglobin Mixed Venous 56.0(L) 66.0 - 77.0 % [facility] Carboxyhemoglobin Venous 0.7 0.0 - 3.0 % [facility] Methemoglobin 0.4 0.0 - 2.0 % [facility] FI O2 Mixed Venous 21.0 % [facility] Blood specimen (specimen) BLOOD SPECIMEN / Unknown 04/03/2017 2:26 AM CDT 04/03/2017 2:42 AM CDT Narrative [facility] - 04/03/2017 2:45 AM CDT FI02->21 Apurva Coronado MD LAB - BLOOD GASES OR DERABLES [address] [phone] * HYDROXYBUTYRATE BETA (04/03/2017 2:26 AM CDT) Only the most recent of2 resultswithin the time period is included. Beta-Hydroxybu tyrate 0.25 0.02 - 0.27 mmol/L [facility] Blood specimen (specimen) BLOOD SPECIMEN / Unknown 04/03/2017 2:26 AM CDT 04/03/2017 2:33 AM CDT Apurva Coronado MD LAB - CHEMISTRY [place] [address], [facility] [phone] * (ABNORMAL) COMPREHENSIVE METABOLIC PANEL (04/03/2017 2:26 AM CDT) BUN 17 7 - 26 mg/dL [facility] Creatinine 0.6 0.6 - 1.2 mg/dL [facility] Sodium 141 136 - 145 mmol/L [facility] Potassium 3.2(L) 3.5 - 4.5 mmol/L [facility] Chloride 108(H) 98 - 107 mmol/L [facility] CO2 18(L) 22 - 29 mmol/L [facility] Glucose 298(H) 70 - 115 mg/dL [facility] Calcium 10.0 8.4 - 10.2 mg/dL [facility] Protein Total 7.4 6.0 - 8.3 g/dL [facility] Albumin 2.4(L) 3.4 - 5.0 g/dL [facility] Bilirubin Total 0.5 0.2 - 1.2 mg/dL [facility] Alkaline Phosphatase 133 40 - 150 Units/L [facility] ALT 13 0 - 55 Units/L [facility] AST 11 5 - 34 Units/L [facility] Anion Gap 18 8 - 18 [facility] BUN/Creatinine Ratio 28(H) 7 - 23 [facility] Osmolality Calculated 305(H) 270 - 300 mOsm/kg [facility] Albumin/Globulin Ratio 0.5(L) 1.1 - 2.3 [facility] eGFR >60 >60 mL/min/1.7 3 m2 [facility] Blood specimen (specimen) BLOOD SPECIMEN / Unknown 04/03/2017 2:26 AM CDT 04/03/2017 2:32 AM CDT Apurva Coronado MD LAB - CHEMISTRY NUBIA R[facility] Organization Address City/State/ZIP Co de Phone Number [address] [phone] * (ABNORMAL) HEMOGLOBIN A1C (04/03/2017 2:26 AM CDT) Hemoglobin A1c 10.6(H) 4.4 - 6.3 % [facility] Estimated Average Glucose 258 mg/dL [facility] Comment: HbA1c Interpretation: Treatment target values recommended by ADA and other clinical organizations should be used to evaluate metabolic control in patients. Treatment Target Values: Normal : < 5.7% Pre-diabetes: 5.7-6.4% Diabetes: Equal to or greater than 6.5% Reference: [place] [employer] Standards of Care in Diabetes -2014 In patients 70 years and older consider HbA1c target range of 7.0-7.5% Reference: Diabetes Mellitus in Older People: Position Statement on behalf of the International Association of Gerontology and Geriatrics (IAGG), the Diabetes Working Libertarian for Older People (EDWPOP), and the International Task Force of Experts in Diabetes. Alfonzo Holland, et al. J [place] [employer]. 2012 Test results diagnostic of diabetes should be repeated for confirmation. The Tosoh G8 assay for the measurement of HbA1c is a National Glycohemoglobin Standardization Program (NGSP)certified method. Results for patients with HbE disease should be interpreted with caution as this hemoglobinopathy has been shown to interfere with the Tosoh G8 assay. Blood specimen (specimen) BLOOD SPECIMEN / Unknown 04/03/2017 2:26 AM CDT 04/03/2017 6:31 AM CDT Apurva Coronado MD LAB - CHEMISTRY NUBIA RUSH [address] [phone] * GLUCOSE - POINT OF CARE (AMB) U (04/03/2017 2:11 AM CDT) Only the most recent of2 resultswithin the time period is included. Bert Yang MD LAB - POINT OF CARE ORDERABLES [facility]
--- OUTSIDE RECORDS SUMMARY | 2024-11-06 16:54 | XMS_ITS | Continuity of Care Document ---
Author Organization [facility] Address [address] [place] [address] Phone Care Team Providers Care Theatre Program Director Name Role Phone Matthew Gold DO Unavailable Unavailable Advance Directives Directive Yes / No Effective Date File Name No Information Encounters Encounter Description Practice Location Reason(s) For Visit Diagnoses Date Provider Providers Copied on Encounter [facility], [address] [place], [place], [id number], [place] tel:[phone] [facility] No Information Asif Leigh. [address] [place], [address], [place]. tel: [phone] Family History Family Member Type Diagnosis Age [...]
== END 2024-11-06 16:30 | disposition home or self-care (01) ==
PROVIDERS: Emergency Provider Nurse Practitioner Family; PCP Nurse Practitioner
DX: N30.01 Acute cystitis with hematuria (principal); Z79.899 Other long term (current) drug therapy; Z79.4 Long term (current) use of insulin
CPT/HCPCS: 81003; 87086; 87186; 99203; G0463

== ENCOUNTER 2025-01-04 16:03 | Emergency (ER) | payer BC, SELFPAY ==
--- NOTE | 2025-01-04 16:04 | ED.GENADULT ---
HPI - General Adult General Chief complaint: Extremity Problem,Nontraumatic Stated complaint: Bilateral Ankles/ Leg Pain Time Seen by Provider: 01/04/25 16:04 Source: patient Mode of arrival: ambulatory Limitations: no limitations History of Present Illness HPI narrative: 59-year-old female patient presents to the [facility] with complaints of swelling to bilateral lower legs for the past 5 days. Patient states that she had something similar to this happened to her last year and states her dad doctor put her on a Lasix to get the swelling down and then placed her on 40 mg of furosemide as maintenance. Patient does has history of AFib does take out amlodipine, metoprolol, metformin. Denies any chest pain or shortness of breath. Related Data Home Medications ?Medication ?Instructions ?Recorded ?Confirmed ?Last Taken ?Type amiodarone 200 mg tablet mg 11/06/24 Unknown History amlodipine 5 mg tablet mg 11/06/24 Unknown History apixaban 5 mg tablet (Eliquis) mg 11/06/24 Unknown History atorvastatin 80 mg tablet mg 11/06/24 Unknown History escitalopram oxalate 10 mg tablet mg 11/06/24 Unknown History furosemide 40 mg tablet mg 11/06/24 Unknown History glipizide 5 mg tablet, extended mg PO 11/06/24 Unknown History release 24 hr insulin glargine U-300 conc 300 unit subcut 11/06/24 Unknown History unit/mL (3 mL) subcutaneous pen (Toujeo Max U-300 SoloStar) metformin 500 mg tablet,extended mg PO 11/06/24 Unknown History release 24 hr metoprolol tartrate 25 mg tablet mg 11/06/24 Unknown History blood-glucose sensor (FreeStyle 01/04/25 01/04/25 Unknown History Natalie 3 Sensor device) Allergies Allergy/AdvReac Type Severity Reaction Status Date / Time sulfamethoxazole (From Allergy Mild Hives Verified 01/04/25 16:23 Bactrim) trimethoprim (From Bactrim) Allergy Mild Hives Verified 01/04/25 16:23 Review of Systems Review of Systems: CONSTITUTIONAL: Denies fever, chills, or sweats. EYES: Denies visual changes, redness, or discharge. ENT: Denies rhinorrhea, congestion, sore throat, or otalgia. CARDIOVASCULAR: Denies chest pain, palpitations, Positive bilateral lower edema. RESPIRATORY: Denies cough or dyspnea. GASTROINTESTINAL: Denies abdominal pain, nausea, vomiting, or diarrhea. GENITOURINARY: Denies dysuria or hematuria. SKIN: Denies rash or itching. MUSCULOSKELETAL: Denies back pain, joint pain, or myalgia. NEUROLOGIC: Denies headache, numbness, or weakness. PSYCHIATRIC: Denies anxiety or depression. [facility] Past Medical History Medical History Anxiety Depression Diabetes IBS (irritable bowel syndrome) Pneumonia Hypertension Angina at rest Comments At the time of my signature I agree with nursing past medical history, surgical, social, and family history. There is no relevant family history pertinent to the presenting complaint. Exam Narrative: GENERAL: Well-appearing, well-nourished, and in no acute distress. HEAD: Normocephalic, atraumatic. EYES: PERRLA and EOMI. ENT: Nares clear, no rhinorrhea or epistaxis. Mucous membranes moist. NECK: Supple. No lymphadenopathy CHEST: Clear to auscultation. No respiratory distress. HEART: Regular rate and rhythm. No murmur heard. Normal peripheral pulses. ABDOMEN: Soft, nontender, nondistended, normal active bowel sounds. EXTREMITIES: Normal range of motion. patient has 2 to 3+ pitting edema noted noted to the bilateral lower extremities that goes all the way up above her knees. SKIN: Warm, dry, no rash. NEURO: No focal deficits. Alert and oriented x3. Course Course Level of Care: Express Care Visit Reevaluation(s) Reevaluation #1: Re-evaluated patient. Notified her that her EKG looks okay today and not as concerning as I thought it would be. Discussed with her that she most likely has the pitting edema to the lower extremities because her either her heart is not pumping well or there could be something going on with her kidneys. Discussed with patient the fact that she is not having any chest pain or shortness of breath is reassuring. Discussed with patient offered to send her to the ER for further evaluation or she can go home and elevate her lower extremities above her heart for the rest of the evening and into tomorrow and have her follow-up with her offal trimmer tomorrow. Patient has opted to follow up with her offal trimmer tomorrow. Discussed with her that she needs to notify her offal trimmer that her blood pressure was elevated today and that she does have some pitting edema and they should be able to order her some labs and adjust her medications as needed. Patient verbalized understanding. Discussed with patient that if her edema continues to worsen or she develops chest pain or shortness of breath very important that she go to the ER for further evaluation. Patient verbalized this understanding. Denies any other questions or concerns at this time. Date: 01/04/25 Time: 16:45 Vital Signs Vital signs: Vital Signs Temperature 36.9 C 01/04/25 16:13 Pulse Rate 62 01/04/25 16:13 Respiratory Rate 20 01/04/25 16:13 Blood Pressure 194/78 H 01/04/25 16:13 Pulse Oximetry 96 01/04/25 16:13 Oxygen Delivery Room Air 01/04/25 16:13 Temperature 36.9 C 01/04/25 16:13 Pulse Rate 62 01/04/25 16:13 Respiratory Rate 20 01/04/25 16:13 Blood Pressure 194/78 H 01/04/25 16:13 Pulse Oximetry 96 01/04/25 16:13 Oxygen Delivery Room Air 01/04/25 16:13 and signs reviewed Medical Decision Making MDM Narrative Medical decision making narrative: Plan care patient is to check an EKG on her. If the EKG is concerning we may need to send her to the ER for further evaluation and treatment. Discussed with her that the pitting edema is most likely related to her heart and the fact that her heart is not pumping the fluid out sufficiently. Discussed with her that if the EKG looks okay and she is otherwise asymptomatic we can have her go home and have her call her doctor tomorrow for further evaluation. Patient verbalized understanding denies any other questions or concerns at this time. Differential Diagnosis Differential Diagnosis: Differential diagnosis: STEMI/ACS, AAA, PE, spontaneous pneumothorax, cardiac tamponade, esophageal rupture, pneumonia, GERD, muscle-skeletal pain or trauma, endocarditis, cocaine-related ischemia, pericarditis, URI, bronchitis. Vital Signs Vital Signs: Vital Signs Temperature 36.9 C 01/04/25 16:13 Pulse Rate 62 01/04/25 16:13 Respiratory Rate 20 01/04/25 16:13 Blood Pressure 194/78 H 01/04/25 16:13 Pulse Oximetry 96 01/04/25 16:13 Oxygen Delivery Room Air 01/04/25 16:13 Temperature 36.9 C 01/04/25 16:13 Pulse Rate 62 01/04/25 16:13 Respiratory Rate 20 01/04/25 16:13 Blood Pressure 194/78 H 01/04/25 16:13 Pulse Oximetry 96 01/04/25 16:13 Oxygen Delivery Room Air 01/04/25 16:13 ECG Data EKG #1: ECG completion date: 01/04/25 ECG completion time: 16:37 Interpretation: vent rate: 64 GA interval: 207 QRS duration: 96 QT/ QTC: 444/454 P-R- T axes: 75, 49, -9 sinus rhythm. Possible anterior myocardial infarction, probably old. Borderline ECG. Unconfirmed report. EKG Interpretation: normal rate Critical Care Time Critical Care Time Critical Care Time: No Discharge Plan Discharge Clinical Impression: 2+ pitting edema, Swelling of both lower extremities Patient Disposition: Home Condition: Stable Instructions: Antibiotic Form, Heart Failure (ED), Leg Edema (ED) Additional Instructions: please call your primary doctor or offal trimmer tomorrow to have blood work ordered for the remainder of the evening today please elevate both of your legs above your heart level. This will help decrease some of the edema. Once this decreases you can try and get some compression stockings to help decrease edema when your up moving around. If you develop any chest pain shortness of breath or the edema continues to get worse please go to the ER for further evaluation and treatment. Continue to take your medications as prescribed. Try to limit the amount of fluids that you are in taking. Patient Language: Nauruan Prescriptions: No Action furosemide 40 mg tablet atorvastatin 80 mg tablet amiodarone 200 mg tablet glipizide 5 mg tablet extended release 24hr PO amlodipine 5 mg tablet metformin 500 mg tablet extended release 24 hr PO escitalopram oxalate 10 mg tablet metoprolol tartrate 25 mg tablet Eliquis 5 mg tablet insulin glargine U-300 conc [Toujeo Max U-300 SoloStar] 300 unit/mL (3 mL) insulin pen SUBCUT (DME) FreeStyle Natalie 3 Sensor Device MISCELLANEOUS Follow-up/Referrals: Danny,MIKKI Luo [Primary Care Provider] - Time of Disposition: 16:41
--- OUTSIDE RECORDS SUMMARY | 2025-01-04 16:05 | XMS_ITS | Encounter Summary ---
Author Organization [facility] Address [address] [place] [address] Care Team Providers Care Weekend Anchor Name Role Phone Sammi Meadows Amalia INTERPRETATIVE DANCER Primary Care Provider Unav ailable Inocencia Castillo [facility] Primary Care Provider + Shakeel Plaza MD Unavailable [phone] Amy Newman OTR Unavailable [phone] Lia Charles [facility] Primary Care Provider + Madisyn Delgado INTERPRETATIVE DANCER Primary Care Provider [phone] Encounter Details Date Type Department Care Team (Late st Contact Info) Description 11/08/2020 Prep for Procedure [facility] [address] [place] [address] Ileana Caceres MD [address] [place] [address] Social History Tobacco Use Types Packs/Day Years [...] Sex Assigned at Female 10/31/2024 10:43 AM PROFESSOR OF MARKETING Legal Sex Female 6:38 AM CDT Gender Identity Not on file Sexual Orientation Not on file COVID-19 Exposure Response Date Recorded In the last month, have you been in contact with someone who was confirmed or suspected to have Coronavirus / COVID-19? No / Unsure 11/08/2020 1:25 PM PROFESSOR OF MARKETING documented as of this encounter Functional Status [...] 6:00 AM MIKAELT Mariposa Bryant RN Active documented as of this encounter Mental Status * Because of a physical, mental, or emotional condition, do you have serious difficulty concentrating, remembering, or making decisions? Answer Entry Date Author Status No 05/13/2020 6:00 AM Mariposa Jenkins RN Active documented in this encounter Plan of Treatment Upcoming Encounters Date Type Department Care Team (Late st Contact Info) Description 01/20/2025 1:45 PM CDT Office Visit Jair Garcia-O'Fallo n [facility], [address] [place] [address] Shakeel Plaza MD [facility]. [address] [place] [address] 04/27/2025 3:15 PM CDT Office Visit Jair Garcia-O'Fallo n [facility], [address] [place] [address] Kendra Loyola MD [facility]. [address] [place] [address] documented as of this encounter Results * PRE-SURGICAL/PRE-PROCEDURE CORONAVIRUS (COVID 19) (11/12/2020 10:41 AM PROFESSOR OF MARKETING) CORONAVIRUS SARS COV 2 PCR (RESP) NOT DETECTED NOT DETECTED 11/13/2020 9:41 AM PROFESSOR OF MARKETING [facility] Comment: A Not Detected (negative) test result [...] providers and patients using the following websites: https://www.RFEyeD.com/home/Covid-19/HCP/QuestIVD/fact- sheet.html https://www.RFEyeD.Peerius/home/Covid-19/Patients/ QuestIVD/fact-sheet.html This test has been authorized by the FDA under an Emergency Use Authorization (EUA) for use by authorized laboratories. Due to the current public health emergency, [facility] is receiving a high volume of samples [...] about COVID-19 can be found at the [facility] website: www.Anteryon/Covid19. Test performed at [facility] [address] [place] [address] Director: ZHOU MELISSA DO,MPH FIRST TEST NO 11/12/2020 10:39 AM [facility] EMPLOYED IN HEALTHCARE NO 11/12/2020 10:39 AM [facility] SYMPTOMATIC DEFINED BY CDC NO 11/12/2020 10:39 AM [facility] DATE OF SYMPTOM ONSET UNKNOWN 11/12/2020 11:01 AM [facility] HOSPITALIZATION STATUS NO 11/12/2020 10:39 AM [facility] PATIENT IN ICU NO 11/12/2020 10:39 AM [facility] RESIDENT OF [facility] NO 11/12/2020 10:39 AM [facility] UNKNOWN 11/12/2020 11:01 AM [facility] PATIENT'S RACE WHITE OR 11/12/2020 10:39 AM [facility] ETHNICITY NONHISPANIC 11/12/2020 10:39 AM [facility] SOURCE (QST) NASOPHARYNGEAL SWAB 11/12/2020 10:39 AM [facility] NASOPHARYNGEAL SWAB / Unknown 11/12/2020 10:41 AM PROFESSOR OF MARKETING Ileana Caceres MD MICROBIOLOGY - GENERAL ORDER ARELI Final Result [facility] [address] [place] [address], [facility] [address] [place] [address], [place] documented in this encounter Visit Diagnoses Diagnosis Pre-op testing- Primary Preoperative examination, unspecified documented in this encounter Additional Health Concerns Infection Onset Date Last Indicated Resolved Time COVID-19 Rule Out 11/12/2020 11/12/2020 11/13/2020 9:41 AM PROFESSOR OF MARKETING COVID-19 Rule Out 04/30/2024 04/30/2024 04/30/2024 3:53 PM CDT COVID-19 Confirmed 04/30/2024 04/30/2024 8:28 AM CDT documented as of this encounter Care Teams Weekend Anchor Relationship Specialty Start Date End Date Sammi Meadows NP PCP - General NURSE PRACTITIONER 05/05/20 09/21/21 Inocencia Castillo, [facility] PCP - General Nurse Practitioner Family 12/02/21 06/21/23 Lia Charles, [facility] [address] [place], [place] [id number] PCP - General Nurse Practitioner Family 06/22/23 08/22/23 Madisyn Delgado NP [address] [place] [address] PCP - General NURSE PRACTITIONER 08/23/23 Shakeel Plaza MD [facility]. [address] [address] [place] [address] Consulting Physician CARDIOVASCULAR DISEASE 09/03/21 Amy Newman, [place] [address] Occupational Therapist Occupational Therapy 04/04/22 documented as of this encounter
--- OUTSIDE RECORDS SUMMARY | 2025-01-04 16:05 | XMS_ITS ---
Author Organization [facility] Address [address] [place] [address] Care Team Providers Care Dynamite Shooter Name Role Phone Shakeel Plaza MD Unavailable [phone] Madisyn Delgado NP Primary Care Provider [phone] Active Problems Problem Noted Date Diagnosed Date Anxiety and depression 03/17/2024 Overview (08/24/2024): Is not taking the escitalopram 10 mg daily anymore. Quit taking. No good reason but overall doing well. Is retired now so less stress. Assessment & Plan (08/24/2024 7:57 AM PRIVATE EQUITY ASSOCIATE): Pt informed to either begin taking or [...] 01/04/2024 Assessment & Plan (08/24/2024 7:49 AM PRIVATE EQUITY ASSOCIATE): Will continue to monitor. No tx necessary [...] Sep. Assessment & Plan (08/24/2024 7:38 AM PRIVATE EQUITY ASSOCIATE): Pt due for mammogram. Order placed and pt is scheduled for a follow up with DR. Erwin Sep 11. Discussed the importance of keeping her appointments. CAD (coronary artery disease) 11/09/2020 Dyslipidemia 11/09/2020 Overview (08/24/2024): Taking atorvastatin 80mg nightly and tolerates well. Assessment & Plan (08/24/2024 7:40 AM PRIVATE EQUITY ASSOCIATE): Chronic condition, will check lipid panel. No [...] carbohydrates. NSTEMI (non-ST elevated myoc ardial infarction) ([facility]) 04/22/2020 Chronic anticoagulation 07/06/2017 Class 2 severe obesity due t o excess calories with serious comorbidity and body mass index (BMI) of 37.0 to 37.9 in adult 06/01/2017 Assessment & Plan (08/24/2024 7:31 AM PRIVATE EQUITY ASSOCIATE): Encourage diet and lifestyle changes to assist with weight loss. Essential hypertension 05/08/2017 Overview (08/24/2024): Chronic condition. Follows with cardio Dr. Plaza and . Denies chest pain, palpitations, shortness of breath, dizziness, lightheadedness or lower extremity edema. Denies any orthopnea or PND. Has not been checking her bp's at home. Assessment & Plan (08/24/2024 7:41 AM PRIVATE EQUITY ASSOCIATE): Goal for BP to stay below 140/90. Encourage lifestyle modifications to include healthy eating, decrease salt and caffeine in diet, routine exercise, and weight loss. Will recheck BP in 2 weeks at follow up. Paroxysmal atrial fibrillation ([facility]) 04/20/2017 Overview (08/24/2024): Hx of A-Fib. Had a cardiac ablation on 05/15/24. Follows with Dr. oLyola. Pt on Metoprolol and Eliquis 5mg BID. Pt's note from Dr. Loyola reports pt to wean off Amiodarone. Is not currently taking She thinks she she still goes into A-Fib at times. Denies any med side effects. Assessment & Plan (08/24/2024 7:31 AM PRIVATE EQUITY ASSOCIATE): Currently not in A-Fib. Continue to monitor symtpoms and following with cardio as directed for med management. Discussed the importance of med compliance. Type 2 diabetes mellitus wit h hyperglycemia, with long-term current use of insulin ([facility]) 04/03/2017 Overview (08/24/2024): Last A1c [...] feet. Assessment & Plan (08/24/2024 7:48 AM PRIVATE EQUITY ASSOCIATE): A1C 12.3 today. Pt has been noncompliant [...] Unable to take NAT d/t cough Current Treatment and Therapy Plans No current plan information found. Past Treatment and Therapy Plans No past plan information found. Radiation Treatments * Course C1 01/18/2021 - 02/21/2021 Treatment Period Energy Fraction Dose Fractions Total Dose Plans Planned R_Breast_bst 02/11/2021 - 02/21/2021 7 of 7 / Rt Breast_FiF 01/18/2021 - 02/10/2021 16 of 16 / Reference Points Delivered Rt Breast boost 02/11/2021 - 02/21/2021 14 Rt Breast 01/18/2021 - 02/10/2021 [id number] Resolved Problems Problem Noted Date Diagnosed Date Resolved Date Scalp abscess 01/04/2024 08/24/2024 Abscess 12/24/2023 08/24/2024 Wound drainage 12/20/2023 01/04/2024 Atypical ductal hyperplasia of right breast 09/15/2020 01/08/2022 Abnormal mammogram of right breast 07/17/2020 01/08/2022 Necrotizing fasciitis ([facility]) 04/03/2017 01/08/2022
--- OUTSIDE RECORDS SUMMARY | 2025-01-04 16:05 | XMS_ITS | Clinical Summary ---
Author Organization [facility] Address [address] [place] [address] Phone Care Team Providers Care Sorter Operator Name Role Phone Ileana Caceres MD Unavailable Flakito Carr MD Unavailable [phone] Sammi Meadows APRN, PHOTOGRAPHIC DEVELOPER AND PRINTER Primary Care Provid er Allergies Active Allergy [...] Covid-19 Vaccine, Vector-nr, Rs-ad26, Pf, 0.5 Ml ([employer]) 11/08/2020 Pneumococcal Vaccine Adult - 23 Valent [...] Master's degree (e.g., MA, MS, Jaiden, MEd, FINANCE PROFESSOR, LEVI) 09/10/2020 Sexually Active Control Partners Comments Not Currently Comments No Sex and Gender Information Value Date Recorded Sex Assigned at Not on file Legal Sex Female 2:05 PM IMPLEMENTATION ENGINEER Gender Identity Not on file Sexual Orientation [...] patient's age to complete this topic Insurance [facility] Care Teams Sorter Operator Relationship Specialty Start Date End Date Sammi Meadows, OUTSOLE COMPRESSOR, PHOTOGRAPHIC DEVELOPER AND PRINTER [address] [place] [address] PCP - General Advanced Practice Nurse 03/15/22 Ileana Caceres MD [address] [id number] Referring Provider Colon & Rectal Surgery 08/25/20 Flakito Carr MD [address] [place] [phone] Consulting Physician Oncology 08/25/20
--- OUTSIDE RECORDS SUMMARY | 2025-01-04 16:05 | XMS_ITS | Clinical Summary ---
Author Organization [employer] Address [address] [place] [address] Care Team Providers Care Head Neck Surgeon Name Role Phone Unavailable Primary Care Provider Unavailabl e Source Comments [facility] [employer],non-owned Affiliates and Associated Physician Practices is amultiple site organization consisting of ambulatory clinics and hospital sitesin [place], [place], [place] and [place]. This disclosure is being madepursuant to the Care Everywhere program and may not contain all information available regarding this patient. Last updated 18.Crescentrating Medications * Be aware that medications may not be up to date on this document. Alwaysverify current medications with the patient. dextrose 50 % IV 25 mL by Intravenous route. 10 syringe 0 7 Active dextrose 50 % IV 50 mL by Intravenous route. 10 syringe 0 7 Active albuterol (PROVENTIL;VENT YRIS) (5 MG/ML) 0.5% nebulizer solution 2.5 mg q6h PRN (Wheezing). 1 Box 3 7 Active insulin lispro (HUMALOG) 100 UNIT/ML vial Inject 0 Units subcutaneously. 10 mL 3 7 Active lisinopril (PRINIVIL; ZESTRIL) 10 MG tablet Take 10 mg by mouth DAILY. 30 tablet 3 7 Active docusate sodium (COLACE) 100 MG capsule Take 100 mg by mouth BID PRN (Constipation). 60 capsule 0 7 Active sennosides (SENOKOT) 8.6 MG tablet Take 8.6 mg by mouth. 30 tablet 0 7 Active insulin glargine (LANTUS) vial Inject 20 Units subcutaneously. 10 mL 3 7 Active apixaban (ELIQUIS) 5 MG tablet Take 5 mg by mouth BID. 60 tablet 0 7 Active metoprolol tartrate (LOPRESSOR) 50 MG tablet Take 50 mg by mouth q8h. 60 tablet 0 7 Active polyethylene glycol 3350 (MIRALAX) packet Take 17 g by mouth DAILY. 30 packet 0 7 Active HYDROcodone-gaurang taminophen (NORCO) 5-325 MG tablet Take 1 tablet by mouth q4h PRN. 60 tablet 0 7 Active Active Problems Problem Noted Date Diagnosed [...] drink = 0.6 oz pur e alcohol) Comments Unknown Sex and Gender Information Value Date Recorded Sex Assigned at Not on file Legal Sex Female 5:29 PM SENIOR SITE MANAGER Gender Identity Not on file Sexual Orientation [...] Health Maintenance Due Date Last Done Comments COLOGUARD (AGES 45-75) - COL ON CA SCREENING 1963 COLON MONITORING 1963 COLONOSCOPY - COLON CA SCREENING 1963 CT COLONOGRAPHY - COLON CA SCREENING 1963 Colorectal Cancer Screening 1963 FIT - COLON CA SCREENING 1963 FLEX SIG - COLON CA SCREENING 1963 PAP SMEAR 1963 HIV SCREENING 1978 DTAP/TDAP/TD VACCINES (1 - Tdap) 1982 PNEUMOCOCCAL VACCINE 50+ (1 of 2 - PCV) 1982 ZOSTER VACCINE (1 of 2) 2013 Respiratory Syncytial Virus (RSV) Vaccine Pt: or over 60 yrs (1 - Risk 60-74 years 1-dose series) 2023 MAMMOGRAM 03/08/2024 03/08/2022 COVID-19 VACCINE (1 - 2023-2 5 season) 2024 DEPRESSION SCREENING 09/03/2024 INFLUENZA VACCINE (Season Ended) 2025 05/26/2022, 06/20/2017 LIPID TESTING 08/23/2028 08/23/2023, 04/14/2017 HEPATITIS C SCREENING Completed 08/23/2023 HEPATITIS B VACCINE Aged Out No longe r eligible based on patient's age to complete this topic HIB VACCINE Aged Out No longer eligi ble based on patient's age to complete this topic HPV VACCINE Aged Out No longer eligi ble based on patient's age to complete this topic MENINGOCOCCAL (Group B) VACCINE SHARED DECISION-MAKING Aged Out No longer eligible based on patient's age to complete this topic MENINGOCOCCAL GROUPS A/C/Y/W VACCINE Aged Out No longer eligible b ased on patient's age to complete this topic Procedures Procedure Name Priority Date/Time Associated Diagnosis Comments LIPID PROFILE Timed 04/14/2017 5:29 AM CDT from Last 3 Months or Most Recently Relevant to Health Maintenance Results * (ABNORMAL) LIPID PROFILE (04/14/2017 5:29 AM CDT) Cholesterol Total 176 <200 mg/dL [facility] HDL 45 >40 mg/dL [facility] Comment: ATP III Classification of HDL Cholesterol: <40 mg/dL: Considered a major risk factor. >60 mg/dL: Considered a negative risk factor. LDL Calculated 116(H) <100 mg/dL [facility] Comment: ATP III Classification of LDL Cholesterol: <100 mg/dL: Optimal 100 - 129 mg/dL: Near Optimal/Above Optimal 130 - 159 mg/dL: Borderline High 160 - 189 mg/dL: High >190 mg/dL: Very High Triglycerides 74 <150 mg/dL [facility] Comment: ATP III Classification of Triglycerides: <150 mg/dL: Normal 150 - 199 mg/dL: Borderline High 200 - 400 mg/dL: High >500 mg/dL: Very High Blood specimen (specimen) BLOOD SPECIMEN / Unknown 04/14/2017 5:29 AM CDT 04/14/2017 6:01 AM CDT Cornelio Martinez MD LAB - CHEMISTRY ORDERABLES Final Result [address] [phone] from Last 3 Months or Most Recently Relevant to Health Maintenance Insurance [facility] [place]
--- OUTSIDE RECORDS SUMMARY | 2025-01-04 16:05 | XMS_ITS | Encounter Summary ---
Author Organization [facility] Address [address] [place] [address] Care Team Providers Care Yield Engineer Name Role Phone Shakeel Plaza MD Unavailable [phone] Madisyn Delgado NP Primary Care Provider [phone] Encounter Details Date Type Department Care Team (Late st Contact Info) Description 09/10/2023 Mapplas Message Enc [facility] Medical [facility] Family Medicine [facility] [address] [place] [address] An[facility] Provider Appointment Social History Tobacco Use [...] Sex Assigned at Female 10/31/2024 10:43 AM ASSET COORDINATOR Legal Sex Female 6:38 AM CDT Gender [...] Description 01/20/2025 1:45 PM CDT Office Visit [facility] [address] [place], [place] [address] Shakeel Plaza MD [facility]. [place] [address] [place], [place] [address] 04/27/2025 3:15 PM CDT Office Visit [facility] [address] [place], [place] [address] Kendra Loyola MD [facility]. [place] [address] [place], [place] [address] documented as of this encounter Goals Goal Patient Goal Type Associated Problems Recent Progress Patient-Stated? Author Patient will return to prior living situation and remain independent in ADLs upon discharge from hospital General Елена Mina RN documented as of this encounter Visit Diagnoses Not on filedocumented in this encounter Additional Health Concerns Infection Onset Date Last Indicated Resolved Time COVID-19 Rule Out 04/30/2024 04/30/2024 04/30/2024 3:53 PM CDT COVID-19 Confirmed 04/30/2024 04/30/2024 8:28 AM CDT Assessment Noted Time PHQ-9 Depression Total Score: 16 023 8:36 AM ASSET COORDINATOR documented as of this encounter Care Teams Yield Engineer Relationship Specialty Start Date End Date Madisyn Delgado NP [address] [place] [address] PCP - General NURSE PRACTITIONER 08/23/23 Shakeel Plaza MD [facility]. [facility] [address] [place] [address] Consulting Physician CARDIOVASCULAR DISEASE 09/03/21 documented as of this encounter
--- OUTSIDE RECORDS SUMMARY | 2025-01-04 16:05 | XMS_ITS | Encounter Summary ---
Author Organization [facility] Address [address] [place] [address] Care Team Providers Care Nitro Man Name Role Phone Shakeel Plaza MD Unavailable [phone] Madisyn Delgado NP Primary Care Provider [phone] Encounter Details Date Type Department Care Team (Late st Contact Info) Description 10/16/2024 Vovici Message Enc [facility] Medical Group Family Medicine [facility] [address] [place] [address] [facility] Provider Appointment Needed Social History Tobacco Use Types Packs/Day Years Used Date Smoking Tobacco: Never Passive Smoke Exposure: Never Smokeless Tobacco: Never Alcohol Use Standard Drinks/Week Comments Yes 0 (1 standard drink = 0.6 oz pur e alcohol) 1 drink per month [facility] Utilities Answer Date Recorded In the past 12 months has [employer], oil, or water [employer] threatened to shut off services in your [...] any time in the past 12 [address], were you homeless or living in a senior living (including now)? No 12/24/2023 Comments No Sex and Gender Information Value Date Recorded Sex Assigned at Female 10/31/2024 10:43 AM OUT OF TOWN COLLECTION CLERK Legal Sex Female 6:38 AM CDT Gender [...] Date Type Department Care Team (Late st [facility] Info) Description 01/20/2025 1:45 PM CDT Office Visit [facility], [facility] [address] [place], [place] [address] Shakeel Plaza MD [facility]. [place] [address] [place], [place] [address] 04/27/2025 3:15 PM CDT Office Visit [facility] [address] [place], [place] [address] Kendra Loyola MD [facility]. [place] [address] [place], [place] [address] documented as of this encounter Goals Goal [...] documented as of this encounter Care Teams Nitro Man Relationship Specialty Start Date End Date Madisyn Delgado NP [address] [place] [address] PCP - General NURSE PRACTITIONER 08/23/23 Shakeel Plaza MD [address] [address] Consulting Physician CARDIOVASCULAR DISEASE 09/03/21 documented as of this encounter
--- OUTSIDE RECORDS SUMMARY | 2025-01-04 16:05 | XMS_ITS | Encounter Summary ---
Author Organization [facility] Address [address] [place] [address] Care Team Providers Care Straight Ruling Machine Operator Name Role Phone Sammi Meadows Amalia MACHINE STAPLER Primary Care Provider Unav ailable Inocencia Castillo [facility] Primary Care Provider + Shakeel Plaza MD Unavailable [phone] Amy Newman OTR Unavailable [phone] Lia Charles [facility] Primary Care Provider + Madisyn Delgado MACHINE STAPLER Primary Care Provider [phone] Encounter Details Date Type Department Care Team (Late st Contact Info) Description 09/13/2020 Prep for Procedure [facility] [address] [place] [address] Ileana Caceres MD [address] [place] [address] Social History Tobacco Use Types Packs/Day Years [...] Sex Assigned at Female 10/31/2024 10:43 AM MAIL CARRIER AND CLERK Legal Sex Female 6:38 AM CDT Gender Identity Not on file Sexual Orientation Not on file COVID-19 Exposure Response Date Recorded In the last month, have you been in contact with someone who was confirmed or suspected to have Coronavirus / COVID-19? No / Unsure 09/13/2020 3:42 PM MAIL CARRIER AND CLERK documented as of this encounter Functional Status [...] CDT Office Visit [facility], [place] [address] [place] [address] hSakeel Plaza MD Three [facility]. [place] [address] [place] [address] 04/27/2025 3:15 PM CDT Office Visit [facility], [place] [address] [place] [address] Kendra Loyola MD Three [facility]. [place] [address] [place] [address] documented as of this encounter Results * PRE-SURGICAL/PRE-PROCEDURE CORONAVIRUS (COVID 19) (09/17/2020 9:44 AM MAIL CARRIER AND CLERK) CORONAVIRUS SARS COV 2 PCR (RESP) NOT DETECTED NOT DETECTED 09/18/2020 6:41 PM MAIL CARRIER AND CLERK [employer] [facility] Comment: A Not Detected (negative) test [...] providers and patients using the following websites: https://www.[employer]com/home/Covid-19/HCP/NAAT/fact-sheet2 https://www.[employer]ulogy/home/Covid-19/Patients/NAAT/ fact-sheet2 This test has been authorized by the FDA under an Emergency Use Authorization (EUA) for use by authorized laboratories. Due to the current public health emergency, [facility] is receiving a high volume of samples [...] about COVID-19 can be found at the [facility] website: www.[employer]/Covid19. Test performed at [employer] EXPORT [id number] [place] [phone] Director: ZHOU MELISSA DO,MPH FIRST TEST NO 09/17/2020 9:29 AM [facility] EMPLOYED IN HEALTHCARE NO 09/17/2020 9:29 AM [facility] SYMPTOMATIC DEFINED BY CDC NO 09/17/2020 9:29 AM [facility] DATE OF SYMPTOM ONSET UNKNOWN 09/17/2020 10:12 AM [facility] HOSPITALIZATION STATUS NO 09/17/2020 9:29 AM [facility] PATIENT IN ICU NO 09/17/2020 9:29 AM [facility] RESIDENT OF [facility] NO 09/17/2020 9:29 AM [facility] UNKNOWN 09/17/2020 10:12 AM [facility] PATIENT'S RACE WHITE OR 09/17/2020 9:29 AM [facility] ETHNICITY NONHISPANIC 09/17/2020 9:29 AM [facility] SOURCE (QST) NASOPHARYNGEAL SWAB 09/17/2020 9:29 AM [facility] NASOPHARYNGEAL SWAB / Unknown 09/17/2020 9:44 AM MAIL CARRIER AND CLERK us Ileana Caceres MD MICROBIOLOGY - GENERAL ORDER ARELI Final Result [facility] [address] [place] [address], [place] [phone] [employer] [facility] [address] [place] [address], [place] * MRSA SCREENING (09/17/2020 9:43 AM MAIL CARRIER AND CLERK) SPEC DESCRIPTION NASAL 09/17/2020 9:29 AM MAIL CARRIER AND CLERK [facility] SPECIAL REQUESTS NO SPECIAL REQUEST 09/17/2020 9:29 AM MAIL CARRIER AND CLERK [facility] CULTURE RESULT NO MRSA ISOLATED 09/18/2020 1:05 PM MAIL CARRIER AND CLERK [facility] SPECIMEN FROM INTERNAL NOSE / Unknown 09/17/2020 9:43 AM MAIL CARRIER AND CLERK 09/17/2020 9:44 AM MAIL CARRIER AND CLERK Ileana Caceres MD MICROBIOLOGY - GENERAL ORDER ARELI Final Result Performing Organization Address [place]/ZIP Co de Phone Number [facility] [address] [place] [address], [place] [phone] documented in this encounter Visit Diagnoses Diagnosis Pre-op testing- Primary Preoperative examination, unspecified documented in this encounter Additional Health Concerns Infection Onset Date Last Indicated Resolved Time COVID-19 Rule Out 09/17/2020 09/17/2020 09/18/2020 6:42 PM MAIL CARRIER AND CLERK COVID-19 Rule Out 11/12/2020 11/12/2020 11/13/2020 9:41 AM MAIL CARRIER AND CLERK COVID-19 Rule Out 04/30/2024 04/30/2024 04/30/2024 3:53 PM CDT COVID-19 Confirmed 04/30/2024 04/30/2024 8:28 AM CDT documented as of this encounter Care Teams Straight Ruling Machine Operator Relationship Specialty Start Date End Date Sammi Meadows NP PCP - General NURSE PRACTITIONER 05/05/20 09/21/21 Inocencia Castillo, [facility] PCP - General Nurse Practitioner Family 12/02/21 06/21/23 Lia Charles, [facility] [address], [address] [place], [place] [id number] PCP - General Nurse Practitioner Family 06/22/23 08/22/23 Madisyn Delgado, [facility] [address] [place] [address] PCP - General NURSE PRACTITIONER 08/23/23 Shakeel Plaza MD Three [facility]. [address] [address] Consulting Physician CARDIOVASCULAR DISEASE 09/03/21 Amy Newman, [address] [place], [place] [address] Occupational Therapist Occupational Therapy 04/04/22 documented as of this encounter
--- OUTSIDE RECORDS SUMMARY | 2025-01-04 16:05 | XMS_ITS | Encounter Summary ---
Author Organization [facility] Address [address] [place] [address] Care Team Providers Care Roll Slicing Machine Tender Name Role Phone Inocencia Castillo [facility] Primary Care Provider + Shakeel Plaza MD Unavailable [phone] Amy Newman OTR Unavailable [phone] Lia Charles [facility] Primary Care Provider + Madisyn Delgado NP Primary Care Provider [phone] Reason for Visit * Reason Onset Date Comments Hospital Follow Up 12/20/2021 Encounter Details Date Type Department Care Team (Late st Contact Info) Description 12/20/2021 Hospital Follow-up Call [facility] [address] [place] [address] Chioma Agee, [facility] Follow [...] Sex Assigned at Female 10/31/2024 10:43 AM CLIP RIVETER Legal Sex Female 6:38 AM CDT Gender [...] CDT Office Visit [facility], [place] [address] [place] [address] Shakeel Plaza MD Three [facility]. [place] [address] [place] [address] 04/27/2025 3:15 PM CDT Office Visit [facility], [place] [address] [place] [address] Kendra Loyola MD Three [facility]. [place] [address] [place], [place] [address] documented as of this encounter Goals Goal [...] Total Score: 0 09/16/19 22 2:02 PM CLIP RIVETER documented as of this encounter Care Teams Roll Slicing Machine Tender Relationship Specialty Start Date End Date Inocencia Castillo [facility] PCP - General Nurse Practitioner Family 12/02/21 06/21/23 Lia Charles, [facility] [address], [address] [place] [address] PCP - General Nurse Practitioner Family 06/22/23 08/22/23 Madisyn Delgado NP [address] [place] [address] PCP - General NURSE PRACTITIONER 08/23/23 Shakeel Plaza MD Three [facility]. [address] [address] Consulting Physician CARDIOVASCULAR DISEASE 09/03/21 Amy Newman, [place] [address] Occupational Therapist Occupational Therapy 04/04/22 documented as of this encounter
--- OUTSIDE RECORDS SUMMARY | 2025-01-04 16:05 | XMS_ITS | Clinical Summary ---
Author Organization [facility] Address [address] [place] [address] Care Team Providers Care Clinical Nurse Educator Name Role Phone No, Physician Primary Care Provider [phone] Allergies No known active allergies Medications insulin [...] Plan of Treatment Not on file [place] [place] [address] Care Teams Clinical Nurse Educator Relationship Specialty Start Date End Date No, Physician PCP - General 01/09/20
--- OUTSIDE RECORDS SUMMARY | 2025-01-04 16:05 | XMS_ITS | Encounter Summary ---
Author Organization [facility] Address [address] [place] [address] Phone Care Team Providers Care Superintendent Car Construction Name Role Phone Sammi Meadows APRN, CNP Primary Care Provid er Ileana Caceres MD Unavailable [phone] Flakito Carr MD Unavailable [phone] Sammi Meadows APRN, CNP Primary Care Provid er Encounter Details Date Type Department Care Team (Late st Contact Info) Description 07/15/2021 Telephone [facility] [address] [address] Hi Erwin MD [address] [place] [address] Social History Tobacco Use Types Packs/Day [...] Master's degree (e.g., MATEO, , Jaiden, MEd, NEPHROLOGIST, LEVI) 09/10/2020 Sexually Active Control Partners Comments Not Currently Comments No Sex and Gender Information Value Date Recorded Sex Assigned at Not on file Legal Sex Female 2:05 PM COUNSELOR AIDE Gender Identity Not on file Sexual Orientation Not on file 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 SELOR AIDE * Telephone Encounter - Lisa Crawford - 07/18/2021 11:25 AM CST ORDER STILL NOT SHOWING UP IN OUR WORK QUE-ROHAN IS WORKING ON GETTING IT SCHEDULED SELOR AIDE * Telephone Encounter - Lina Warren - 07/15/2021 3:19 PM CST THE ORDER SAYS EXPECTED END OF DEC SO IT DID NOT FALL IN THE QUE BUT I WILL GET PT SCHEDULED. SELOR AIDE * Telephone Encounter - Sheri Barton - 07/15/2021 2:35 PM CST Images from the original note were not included. Hi Erwin MD Sykes, Carla L.; Cc [facility] Nurse [place] 24 minutes ago (2:09 PM) MW Order placed on 06/09/21? Did we not rohan yet? Message text SELOR AIDE * Telephone Encounter - Krysten Lantigua - 07/15/2021 1:58 PM CST Patient called an requested an appt for mamogram. SELOR AIDE documented in this encounter Plan of Treatment Not on file documented as of this encounter Visit Diagnoses Not on filedocumented in this encounter Additional Health Concerns Assessment Noted Time PHQ-9 Depression Total Score: 1 06/09/20 21 2:59 PM CDT documented as of this encounter Care Teams Superintendent Car Construction Relationship Specialty Start Date End Date Sammi Meadows APRN, CNP PCP - General Advanced Practice Nurse 08/25/20 02/03/22 Sammi Meadows APRN, CNP [address] [facility] [address] [place] [address] PCP - General Advanced Practice Nurse 03/15/22 Ileana Caceres MD [address] [address] Referring Provider Colon & Rectal Surgery 08/25/20 Flakito Carr MD [address] [place] [address] Consulting Physician Oncology 08/25/20 documented as of this encounter
--- OUTSIDE RECORDS SUMMARY | 2025-01-04 16:05 | XMS_ITS | Encounter Summary ---
Author Organization [facility] Address [address] [place] [address] Care Team Providers Care Utilities And Maintenance Supervisor Name Role Phone AbdielSammi PATIENT SUPPORT ASSOCIATE Primary Care Provider Unav ailable Inocencia Castillo [facility] Primary Care Provider + Shakeel Plaza MD Unavailable [phone] Amy Newman OTR Unavailable [phone] Lai Charles [facility] Primary Care Provider + Madisyn Delgado PATIENT SUPPORT ASSOCIATE Primary Care Provider [phone] Encounter Details Date Type Department Care Team (Late st Contact Info) Description 05/19/2020 Hospital Follow-up Call [facility] [place] [address] Lorraine Vegas, RN Social History Tobacco Use [...] Sex Assigned at Female 10/31/2024 10:43 AM CANNING MACHINE OPERATOR Legal Sex Female 6:38 AM [...] Author Status No 05/13/2020 6:00 AM CDT Mariposa Bryant RN Active * Do you [...] CDT Office Visit [facility], [place] [address] [place] [address] Shakeel Plaza MD Three [facility]. [place] [address] [place] [address] 04/27/2025 3:15 PM CDT Office Visit [facility], [place] [address] [place], [place] [address] Kendra Loyola MD Three [facility]. [place] [address] [place], [place] [address] documented as of this encounter Visit Diagnoses Not on filedocumented in this encounter Additional Health Concerns Infection Onset Date Last Indicated Resolved Time COVID-19 Rule Out 09/17/2020 09/17/2020 09/18/2020 6:42 PM CANNING MACHINE OPERATOR COVID-19 Rule Out 11/12/2020 11/12/2020 11/13/2020 9:41 AM CANNING MACHINE OPERATOR COVID-19 Rule Out 04/30/2024 04/30/2024 04/30/2024 3:53 PM CDT COVID-19 Confirmed 04/30/2024 04/30/2024 8:28 AM CDT documented as of this encounter Care Teams Utilities And Maintenance Supervisor Relationship Specialty Start Date End Date Sammi Meadows NP PCP - General NURSE PRACTITIONER 05/05/20 09/21/21 Inocencia Castillo, [facility]- PCP - General Nurse Practitioner Family 12/02/21 06/21/23 Lia Charles, [facility]- [address] [place] [address] PCP - General Nurse Practitioner Family 06/22/23 08/22/23 Madisyn Delgado NP [address] [place] [address] PCP - General NURSE PRACTITIONER 08/23/23 Shakeel Plaza MD Three [facility]. [address] [id number] Consulting Physician CARDIOVASCULAR DISEASE 09/03/21 Amy Newman, [address]TR [place], [place] [id number] Occupational Therapist Occupational Therapy 04/04/22 documented as of this encounter
--- OUTSIDE RECORDS SUMMARY | 2025-01-04 16:05 | XMS_ITS | Encounter Summary ---
Author Organization [facility] Address [address] [place] [address] Phone Care Team Providers Care Gasket Supervisor Name Role Phone Sammi Meadows APRN, CNP Primary Care Provid er Ileana Caceres MD Unavailable [phone] Flakito Carr MD Unavailable [phone] Sammi Meadows APRN, CNP Primary Care Provid er Encounter Details Date Type Department Care Team (Late st Contact Info) Description 09/02/2020 Telephone [facility] [address] [address] Flakito Carr MD [address] [facility] [place] [address] [address] Social History Tobacco Use Types Packs/Day Years Used Date Smoking Tobacco: Never Assessed Comments Unknown Sex and Gender Information Value Date Recorded Sex Assigned at Not on file Legal Sex Female 2:05 PM REGISTERED NURSE HH CASE MANAGER Gender Identity Not on file Sexual Orientation Not on file documented as of this encounter Miscellaneous Notes * Telephone Encounter - Marely Fuentes - 09/02/2020 1:19 PM CST Patient no showed her appointment, called and left voice message for her to call the office to reschedule. Sent out no show letter. STERED NURSE HH CASE MANAGER documented in this encounter Plan of Treatment Not on file documented as of this encounter Visit Diagnoses Not on filedocumented in this encounter Care Teams Gasket Supervisor Relationship Specialty Start Date End Date Sammi Meadows APRN, MACROECONOMICS PROFESSOR PCP - General Advanced Practice Nurse 08/25/20 02/03/22 Sammi Meadows APRN, MACROECONOMICS PROFESSOR [address] [place] [address] PCP - General Advanced Practice Nurse 03/15/22 Ileana Caceres MD [address] [id number] Referring Provider Colon & Rectal Surgery 08/25/20 Flakito Carr MD [address] [place] [address] Consulting Physician Oncology 08/25/20 documented as of this encounter
--- OUTSIDE RECORDS SUMMARY | 2025-01-04 16:05 | XMS_ITS | Encounter Summary ---
Author Organization [facility] Address [address] [place] [address] Care Team Providers Care Potline Monitor Name Role Phone None, Provider Primary Care Provider Unavaila Sammi Bautista HANGING FLAGS DECORATOR Primary Care Provider Unav ailable Inocencia Castillo [facility] Primary Care Provider + Shakeel Plaza MD Unavailable [phone] Amy Newman OTR Unavailable [phone] Lia Charles [facility] Primary Care Provider + Madisyn Delgado HANGING FLAGS DECORATOR Primary Care Provider [phone] Encounter Details Date Type Department Care Team (Late Contact Info) Description 06/01/2017 Abstract [facility] CONVERSION [address] [place] [address] , Generic Conversion, Social History Tobacco Use Types Packs/Day Years Used Date Smoking Tobacco: Never Assessed Comments Unknown Sex and Gender Information Value Date Recorded Sex Assigned at Female 10/31/2024 10:43 AM CHOREOGRAPHY DIRECTOR Legal Sex Female 6:38 AM CDT Gender Identity Not on file Sexual Orientation Not on file documented as of this encounter Plan of Treatment Upcoming Encounters Date Type Department Care Team ([facility] Contact Info) Description 01/20/2025 1:45 PM CDT Office Visit [facility] [place] [address] [place] [address] Shakeel Plaza MD Three [facility]. [facility] [address] [place] [address] 04/27/2025 3:15 PM CDT Office Visit [facility], [facility] [address] [place] [address] Kendra Loyola MD Three [facility]. [facility] [address] [place], [place] [address] documented as of this encounter Visit Diagnoses Not on filedocumented in this encounter Additional Health Concerns Infection Onset Date Last Indicated Resolved Time COVID-19 Rule Out 04/22/2020 04/22/2020 04/23/2020 7:54 AM CDT COVID-19 Rule Out 09/17/2020 09/17/2020 09/18/2020 6:42 PM CHOREOGRAPHY DIRECTOR COVID-19 Rule Out 11/12/2020 11/12/2020 11/13/2020 9:41 AM CHOREOGRAPHY DIRECTOR COVID-19 Rule Out 04/30/2024 04/30/2024 04/30/2024 3:53 PM CDT COVID-19 Confirmed 04/30/2024 04/30/2024 8:28 AM CDT documented as of this encounter Care Teams Potline Monitor Relationship Specialty Start Date End Date None, Provider, PCP - General 04/22/20 05/04/20 Sammi Meadows NP PCP - General NURSE PRACTITIONER 05/05/20 09/21/21 Inocencia Castillo, [facility]- PCP - General Nurse Practitioner Family 12/02/21 06/21/23 Lia Charles, [facility]- [address] [place] [address] PCP - General Nurse Practitioner Family 06/22/23 08/22/23 Madisyn Delgado NP [address] [place] [address] PCP - General NURSE PRACTITIONER 08/23/23 Shakeel Plaza MD Three [facility]. [address] [address] Consulting Physician CARDIOVASCULAR DISEASE 09/03/21 Amy Newman, [place] [address] Occupational Therapist Occupational Therapy 04/04/22 documented as of this encounter
--- OUTSIDE RECORDS SUMMARY | 2025-01-04 16:05 | XMS_ITS | Referral Summary ---
Author Organization [facility] Address [address] [place] [address] Care Team Providers Care Draw In Hand Name Role Phone No, Physician Primary Care Provider [phone] Allergies No known active allergies Medications insulin [...] Plan of Treatment Not on file Insurance [facility] Care Teams Draw In Hand Relationship Specialty Start Date End Date No, Physician PCP - General 01/09/20
--- OUTSIDE RECORDS SUMMARY | 2025-01-04 16:05 | XMS_ITS | Encounter Summary ---
Author Organization [facility] Address [address] [place] [address] Care Team Providers Care Protozoologist Name Role Phone None, Provider Primary Care Provider Unavaila Sammi Bautista SKEET OPERATOR Primary Care Provider Unav ailable Inocencia Castillo [facility] Primary Care Provider + Shakeel Plaza MD Unavailable [phone] Amy Newman OTR Unavailable Lia Charles [facility] Primary Care Provider + Madisyn Delgado SKEET OPERATOR Primary Care Provider [phone] Encounter Details Date Type Department Care Team (Late st Contact Info) Description 04/28/2017 Results Notification [facility] [address] [place] [address] Chet Connors MD [address] [address] Social History Tobacco Use Types Packs/Day Years Used Date Smoking Tobacco: Never Assessed Comments Unknown Sex and Gender Information Value Date Recorded Sex Assigned at Female 10/31/2024 10:43 AM WAITER/WAITRESS COUNTER Legal Sex Female 6:38 AM CDT Gender Identity Not on file Sexual Orientation Not on file documented as of this encounter Plan of Treatment Upcoming Encounters Date Type Department Care Team (Late st Contact Info) Description 01/20/2025 1:45 PM CDT Office Visit [facility] [place] [address] [place] [address] Shakeel Plaza MD Three [facility]. [place] [address] [place] [address] 04/27/2025 3:15 PM CDT Office Visit [facility] [place] [address] [place] [address] Kendra Loyola MD Three [facility]. [place] [address] [place], [place] [address] documented as of this encounter Visit Diagnoses Not on filedocumented in this encounter Additional Health Concerns Infection Onset Date Last Indicated Resolved Time COVID-19 Rule Out 04/22/2020 04/22/2020 04/23/2020 7:54 AM CDT COVID-19 Rule Out 09/17/2020 09/17/2020 09/18/2020 6:42 PM WAITER/WAITRESS COUNTER COVID-19 Rule Out 11/12/2020 11/12/2020 11/13/2020 9:41 AM WAITER/WAITRESS COUNTER COVID-19 Rule Out 04/30/2024 04/30/2024 04/30/2024 3:53 PM CDT COVID-19 Confirmed 04/30/2024 04/30/2024 8:28 AM CDT documented as of this encounter Care Teams Protozoologist Relationship Specialty Start Date End Date None, Provider, PCP - General 04/22/20 05/04/20 Sammi Meadows NP PCP - General NURSE PRACTITIONER 05/05/20 09/21/21 Inocencia Castillo, [facility]- PCP - General Nurse Practitioner Family 12/02/21 06/21/23 Lia Charles, [facility]- [address] [place] [address] PCP - General Nurse Practitioner Family 06/22/23 08/22/23 Madisyn Delgado NP [address] [place] [address] PCP - General NURSE PRACTITIONER 08/23/23 Shakeel Plaza MD Three [facility]. [address] [address] Consulting Physician CARDIOVASCULAR DISEASE 09/03/21 Amy Newman, [place] [address] Occupational Therapist Occupational Therapy 04/04/22 documented as of this encounter
--- OUTSIDE RECORDS SUMMARY | 2025-01-04 16:05 | XMS_ITS | Encounter Summary ---
Author Organization [facility] Address [address] [place] [address] Care Team Providers Care Sap Specialist Name Role Phone Shakeel Plaza MD Unavailable [phone] Madisyn Delgado NP Primary Care Provider [phone] Encounter Details Date Type Department Care Team (Late st Contact Info) Description 12/31/2024 Results Follow-Up [facility] [address] Diane Donis RN CLINIC - OUTPATIENT EVENT RECORDER (ECG) UP TO 30 DAYS COMPLETE (Hol[place]) Social History Tobacco Use Types Packs/Day Years Used Date Smoking Tobacco: Never Passive Smoke Exposure: Never Smokeless Tobacco: Never Alcohol Use Standard Drinks/Week Comments Yes 0 (1 standard drink = 0.6 oz pur e alcohol) 1 drink per month [facility] Utilities Answer Date Recorded In the past 12 months has e hetras, gas, oil, or water 4Cable TV threatened to shut off services in your [...] any time in the past 12 m [facility], were you homeless or living in a intermediate (including now)? No 12/24/2023 Comments No Sex and Gender Information Value Date Recorded Sex Assigned at Female 10/31/2024 10:43 AM RECEPTIONIST CLERK Legal Sex Female 6:38 AM CDT [...] Description 01/20/2025 1:45 PM CDT Office Visit [facility] [address] [place], [place] [address] Shakeel Plaza MD [facility]. [facility] [address] [place] [address] 04/27/2025 3:15 PM CDT Office Visit [facility], [facility] [address] [place], [place] [address] Kendra Loyola MD [facility]. [facility] [address] [place], [place] [address] documented as of this encounter Goals Goal [...] documented as of this encounter Care Teams Sap Specialist Relationship Specialty Start Date End Date Madisyn Delgado NP [address] [place] [address] PCP - General NURSE PRACTITIONER 08/23/23 Shakeel Plaza MD [facility]. [place] [address] [place] [address] Consulting Physician CARDIOVASCULAR DISEASE 09/03/21 documented as of this encounter
--- OUTSIDE RECORDS SUMMARY | 2025-01-04 16:05 | XMS_ITS | Encounter Summary ---
Author Organization [facility] Address [address] [place] [address] Phone Care Team Providers Care Supply Chain Program Manager Name Role Phone Ileana Caceres MD Unavailable Flakito Carr MD Unavailable Sammi Meadows APRN, MANAGER CATEGORY Primary Care Provid er Reason for Visit * Reason Comments Medication Refill Encounter Details Date Type Department Care Team (Late st Contact Info) Description 08/07/2023 Refill [facility] [address] [address] Gwendolyn Gomez, EDD, MANAGER CATEGORY [address] [place] [address] Medication Refill Social History Tobacco [...] Master's degree (e.g., [employer]ATE[employer], , Jaiden, MEd, SUPERVISOR [employer], [employer]) 09/10/2020 Sexually Active Control Partners Comments Not Currently Comments No Sex and Gender Information Value Date Recorded Sex Assigned at Not on file Legal Sex Female 2:05 PM RUBBER GASKET INSPECTOR TRIMMER Gender Identity Not on file Sexual Orientation Not on file 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 Please fill if appropriate. 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, unspecified laterality documented in this encounter Additional Health Concerns Assessment Noted Time PHQ-9 Depression Total Score: 1 06/09/20 21 2:59 PM CDT documented as of this encounter Care Teams Supply Chain Program Manager Relationship Specialty Start Date End Date Sammi Meadows, FOUNDRY PATTERNMAKER, MANAGER CATEGORY [address] [facility] [address] [place] [address] PCP - General Advanced Practice Nurse 03/15/22 Ileana Caceres MD [address] [address] Referring Provider Colon & Rectal Surgery 08/25/20 Flakito Carr MD [address] [place] [id number] Consulting Physician Oncology 08/25/20 documented as of this encounter
--- OUTSIDE RECORDS SUMMARY | 2025-01-04 16:05 | XMS_ITS | Clinical Summary ---
Author Organization [facility] Address [address] [place] [address] Care Team Providers Care Valve Inserter Name Role Phone Shakeel Plaza MD Unavailable [phone] Madisyn Delgado COTTON CLEANER Primary Care Provider [phone] Allergies Active Allergy Reactions Criticality Noted Date Comments Ceftriaxone Rash Low 12/19/2021 Ciprofloxacin Rash Low 05/31/2017 ? Pt doesn't remember having a reaction to any med. Lisinopril Cough Low 12/24/2023 Sulfa Antibiotics Rash Low 05/31/2017 ?Pt doesn't remember having a reaction to any med. Medications anastrozole 1 MG tablet Take 1 tablet by mouth daily. 1 Active acetaminophen (TYLENOL) 500 MG tablet Take 1 tablet (500 mg total) by mouth every 6 (six) hours as needed for Pain. Active diphenhydrAMINE- APAP (TYLENOL PM) 25-500 MG Tab tablet Take 1 tablet by mouth nightly as needed for Sleep. Active Magnesium Gluconate 250 MG TabIndications:H ypomagnesemia Take 1 tablet by mouth daily. 30 tablet 4 Active furosemide (LASIX) 40 MG tablet Take 1 tablet (40 mg total) by mouth every other day. 30 tablet 3 4 Active Continuous Glucose Sensor (FREESTYLE AMANDA 3 SENSOR) MiscIndications: Type 2 diabetes mellitus with hyperglycemia, with long-term current use of insulin ([facility] HHS/HCC) Apply 1 Application topically continuous. 1 each 3 4 Active insulin aspart (NOVOLOG FLEXPEN) 100 UNIT/ML injection (PEN)Indications :Type 2 diabetes mellitus with hyperglycemia, with long-term current use of insulin ([facility] HHS/HCC) Inject 10 Units into the skin 3 (three) times daily before meals. 3 mL 3 4 Active apixaban (ELIQUIS) 5 MG tablet Take 1 tablet (5 mg total) by mouth 2 (two) times daily. 180 tablet 1 4 Active metoprolol tartrate (LOPRESSOR) 25 MG tabletIndication s:Essential hypertension TAKE 2 TABLETS(50 MG) BY MOUTH TWICE DAILY. MAKE AN APPOINTMENT 60 tablet 4 Active glipiZIDE XL 5 MG 24 hr tabletIndication s:Type 2 diabetes mellitus with hyperglycemia, with long-term current use of insulin ([facility]) Take 1 tablet (5 mg total) by mouth daily with breakfast. Do not break or crush tablet 90 tablet 1 4 Active Insulin Glargine, 2 Unit Dial, (TOUJEO MAX SOLOSTAR) 300 UNIT/ML Solution Pen-injectorIndi cations:Type 2 diabetes mellitus with hyperglycemia, with long-term current use of insulin ([facility]) Inject 24 Units into the skin nightly at bedtime. 3 mL 5 4 Active Continuous Glucose Sensor (FREESTYLE AMANDA 3 SENSOR) MiscIndications: Type 2 diabetes mellitus with hyperglycemia, with long-term current use of insulin ([facility] HHS/[facility]) Apply 1 Application topically continuous. Check blood sugars three times a day before meals and as needed 1 each 3 4 Active Continuous Glucose Director Social (FREESTYLE AMANDA 3 READER) DeviceIndication s:Type 2 diabetes mellitus with hyperglycemia, with long-term current use of insulin ([facility] HHS/HCC) Apply 1 Application topically continuous. Check blood sugars three times a day before meals and as needed 1 each 3 4 Active atorvastatin (LIPITOR) 80 MG tablet Take 1 tablet (80 mg total) by mouth nightly at bedtime. 30 tablet 5 Active amLODIPine (NORVASC) 5 MG tabletIndication s:Essential hypertension TAKE 1 TABLET(5 MG) BY MOUTH DAILY 30 tablet 5 Active escitalopram (LEXAPRO) 10 MG tablet Take 1 tablet (10 mg total) by mouth daily. Active amiodarone (PACERONE) 200 MG tablet Take 1 tablet (200 mg total) by mouth daily. 90 tablet 1 5 Active metFORMIN ER (GLUCOPHAGE-XR) 500 MG 24 hr tabletIndication s:Type 2 diabetes mellitus with hyperglycemia, without long-term current use of insulin (CMS/HCC HHS/HCC) TAKE 1 TABLET(500 MG) BY MOUTH TWICE DAILY 30 tablet 5 Active Active Problems Problem Noted Date Diagnosed Date Anxiety and depression 03/17/2024 Overview (08/24/2024): Is not taking the escitalopram 10 mg daily anymore. Quit taking. No good reason but overall doing well. Is retired now so less stress. Assessment & Plan (08/24/2024 7:57 AM PROJECT ANALYST): Pt informed to either begin taking or [...] 01/04/2024 Assessment & Plan (08/24/2024 7:49 AM PROJECT ANALYST): Will continue to monitor. No tx necessary [...] Sep. Assessment & Plan (08/24/2024 7:38 AM PROJECT ANALYST): Pt due for mammogram. Order placed and pt is scheduled for a follow up with DR. Owen Sep 11. Discussed the importance of keeping her appointments. CAD (coronary artery disease) 11/09/2020 Dyslipidemia 11/09/2020 Overview (08/24/2024): Taking atorvastatin 80mg nightly and tolerates well. Assessment & Plan (08/24/2024 7:40 AM PROJECT ANALYST): Chronic condition, will check lipid panel. No [...] carbohydrates. NSTEMI (non-ST elevated myoc ardial infarction) ([facility]/HCC [facility]) 04/22/2020 Chronic anticoagulation 07/06/2017 Class 2 severe obesity due t o excess calories with serious comorbidity and body mass index (BMI) of 37.0 to 37.9 in adult 06/01/2017 Assessment & Plan (08/24/2024 7:31 AM PROJECT ANALYST): Encourage diet and lifestyle changes to assist with weight loss. Essential hypertension 05/08/2017 Overview (08/24/2024): Chronic condition. Follows with cardio Dr. Plaza and . Denies chest pain, palpitations, shortness of breath, dizziness, lightheadedness or lower extremity edema. Denies any orthopnea or PND. Has not been checking her bp's at home. Assessment & Plan (08/24/2024 7:41 AM PROJECT ANALYST): Goal for BP to stay below 140/90. Encourage lifestyle modifications to include healthy eating, decrease salt and caffeine in diet, routine exercise, and weight loss. Will recheck BP in 2 weeks at follow up. Paroxysmal atrial fibrillation ([facility]) 04/20/2017 Overview (08/24/2024): Hx of A-Fib. Had a cardiac ablation on 05/15/24. Follows with Dr. Loyola. Pt on Metoprolol and Eliquis 5mg BID. Pt's note from Dr. Loyola reports pt to wean off Amiodarone. Is not currently taking She thinks she she still goes into A-Fib at times. Denies any med side effects. Assessment & Plan (08/24/2024 7:31 AM PROJECT ANALYST): Currently not in A-Fib. Continue to monitor symtpoms and following with cardio as directed for med management. Discussed the importance of med compliance. Type 2 diabetes mellitus wit h hyperglycemia, with long-term current use of insulin ([facility]) 04/03/2017 Overview (08/24/2024): Last A1c [...] feet. Assessment & Plan (08/24/2024 7:48 AM PROJECT ANALYST): A1C 12.3 today. Pt has been noncompliant [...] of right breast 07/17/2020 01/08/2022 Necrotizing fasciitis ([facility]) 04/03/2017 01/08/2022 Encounters Date Type Department Care Team Description 12/31/2024 Results Follow-Up [facility], [address] [address] Diane Donis RN CLINIC - OUTPATIENT EVENT RECORDER (ECG) UP TO 30 DAYS COMPLETE (Holter) 11/07/2024 10:30 AM PROJECT ANALYST Telephone [facility] [address], [address] [address] Carmelo Loyola MD Holter Monitor 11/06/2024 Scan [employer] INFO SRVCS Scanned, [facility] 10/31/2024 10:45 AM PROJECT ANALYST Office Visit [facility], [address] [address] Carmelo Loyola MD Follow Up; Atrial Fibrillation 10/31/2024 Travel 10/16/2024 [employer] Message Enc [facility] Medical [facility] Family Medicine [facility] [address] [place] [address] [facility] Appointment Needed from Last 3 Months Immunizations Immunization Administration Dates Next Due Influenza Adult (Generic) [...] pur e alcohol) 1 drink per month [facility] Utilities Answer Date Recorded In the past 12 months has [employer], gas, oil, or water [employer] threatened to shut off services in your [...] in the past 12 m [facility], were you homeless or living in a correction (including now)? No 12/24/2023 Comments No Sex and Gender Information Value Date Recorded Sex Assigned at Female 10/31/2024 10:43 AM PROJECT ANALYST Legal Sex Female 6:38 AM CDT Gender Identity Not on file Sexual Orientation Not on file Last Filed Vital Signs Vital Sign Reading Time Taken Comments Blood Pressure 124/78 10/31/2024 11:07 AM PROJECT ANALYST Pulse 70 08/22/2024 8:10 AM PROJECT ANALYST Temperature 36.7 C (98 F) 08/22/2024 8:10 AM PROJECT ANALYST Respiratory Rate 18 08/22/2024 8:10 AM PROJECT ANALYST Oxygen Saturation 97% 10/31/2024 11:07 AM PROJECT ANALYST Inhaled Oxygen Concentration - - Weight 103 kg (227 lb) 10/31/2024 11:07 AM PROJECT ANALYST Height 162.6 cm (5' 4 ) 10/31/2024 11:07 AM PROJECT ANALYST Body Mass Index 38.96 10/31/2024 11:07 AM PROJECT ANALYST Plan of Treatment Upcoming Encounters Date Type Department Care Team (Late st Contact Info) Description 01/20/2025 1:45 PM CDT Office Visit [facility] [address] [place] [address] Shakeel Plaza MD [facility]. [facility] [address] [place], [place] [address] 04/27/2025 3:15 PM CDT Office Visit [facility] [address] [place], [place] [address] Carmelo Loyola MD [facility]. [facility] [address] [place], [place] [id number] Health Maintenance Due Date Last Done Comments [...] Vaccines (1 of 2) 2013 Pneumococcal Vaccine: 50+ Years (2 of 2 - PCV) 09/24/2021 09/24/2020 RSV Immunization or 60+ Years (1 - Risk 60-74 years 1-dose series) 2023 Mammogram Screening 03/08/2024 03/08/2022, 08/29/2021, 08/17/2020, Additional history exists COVID-19 Vaccine ( season) 2024 05/26/2022, 08/11/2021, 11/08/2020 Annual Physical 08/23/2024 08/23/2023 PHQ-2 (Physician Molino) 09/03/2024 03/03/2024 Hemoglobin A1C 11/20/2024 08/22/2024, 03/03, [...] from hospital General No Елена Guevara RN Procedures Procedure Name Priority Date/Time Associated Diagnosis Comments EVENT RECORDER (ECG) UP TO 30 DAYS COMPLETE Routine 12/31/2024 8:26 AM CDT Paroxysmal atrial fibrillation (CMS/HCC HHS/HCC) ELECTROCARDIOGRAM (NON MIDMARK ACQUIRED) Routine 10/31/2024 11:09 AM PROJECT ANALYST Essential hypertension LIPID PANEL Routine 08/22/2024 8:56 AM PROJECT ANALYST Dyslipidemia HEMOGLOBIN, GLYCOSYLATED Routine 08/22/2024 Type 2 diabetes mellitus with hyperglycemia, with long-term current use of insulin (CMS/HCC HHS/HCC) HEPATITIS C ANTIBODY Routine 08/23/2023 9:31 AM PROJECT ANALYST Need for hepatitis C screening test MG DIAG ADD VIEW W ALESSANDRA RT Routine 03/08/2022 9:40 AM CDT Atypical ductal hyperplasia of right breast from Last 3 Months or Most Recently Relevant to Health Maintenance Results * CLINIC - OUTPATIENT EVENT RECORDER (ECG) UP TO 30 DAYS COMPLETE (Holter) (12/31/2024 8:26 AM CDT) [facility] - 12/31/2024 8:26 AM CDT [place] [address] ST[employer] TRIMMER REPORT PATIENT NAME: Nany Morton : 1965 PCP: MADISYN DELGADO NP INTERPRETING AREA FIELD MANAGER: Carmelo Loyola MD INDICATION: Paroxysmal atrial fibrillation Baseline Rhythm * The baseline rhythm was Sinus Rhythm with heart rates ranged between 47 and 132 beats per minute, with average rate of 61 beats per minute. A-V Conduction * No Second Degree AV Block Type II. * No Third Degree AV Block. * No Pauses. Supraventricular Arrhythmia * There were 2,928 Supraventricular Ectopic beats with a burden of <1%. * 5 Supraventricular Tachycardia events - the longest episode was 7.1s on 11/30 10:01, and the fastest episode was 124 BPM on 12/03 04:51. Ventricular Arrhythmia * There were 1,066 Ventricular Ectopic beats with a burden of <1%. * 2 Ventricular Tachycardia events - the longest episode was 2.4s on 11/30 02:38, and the fastest episode was 132 BPM on 4/12 20:39. Atrial Fibrillation * No Atrial Fibrillation. Patient Triggered Events * No patient triggered events, and no symptoms. SUMMARY: Normal monitor, no significant arrhythmia burden noted. No symptom rhythm correlation us Carmelo Loyola MD CV VASCULAR ORDERABLES Final Res ult [facility] * ELECTROCARDIOGRAM (10/31/2024 11:09 AM PROJECT ANALYST) 10/31/2024 11:0 9 AM PROJECT ANALYST Narrative [facility] - 11/02/2024 7:29 AM PROJECT ANALYST [facility] Test Date: 2024-10-31 Pat Name: [facility] Department: 112 Room: Gender: Female Otorhinolaryngologist: : 1965 Requested By: CARMELO LOYOLA Order Number: [id number] Reading MD: Alfredo Henry Measurements Intervals [place] Rate: 67 P: 25 UT: 198 QRS: 8 QRSD: 98 T: 25 QT: 405 QTc: 429 Interpretive Statements SINUS RHYTHM WITH OCCASIONAL VENTRICULAR PREMATURE COMPLEXES ANTERIOR MYOCARDIAL INFARCTION, OF INDETERMINATE AGE INFERIOR MYOCARDIAL INFARCTION, PROBABLY OLD Since prior tracing, occasional PVCs now present ECT ANALYST Procedure Note Alfredo Henry MD - 11/02/2024 [facility] Test Date: 2024-10-31 Pat Name: [facility] Department: 112 Room: Gender: Female Otorhinolaryngologist: : 1965 Requested By: CARMELO LOYOLA Order Number: [id number] Dirk BEDOYA: Alfredo Henry Measurements Intervals [place] Rate: 67 P: 25 UT: 198 QRS: 8 QRSD: 98 T: 25 QT: 405 QTc: 429 Interpretive Statements SINUS RHYTHM WITH OCCASIONAL VENTRICULAR PREMATURE COMPLEXES ANTERIOR MYOCARDIAL INFARCTION, OF INDETERMINATE AGE INFERIOR MYOCARDIAL INFARCTION, PROBABLY OLD Since prior tracing, occasional PVCs now present ECT ANALYST us Carmelo Loyola MD PROCEDURES-ORDERABLE NO CHARGE F inal Result Performing Organization Address City/[facility]/ZIP Co de Phone Number [facility] * LIPID PANEL (08/22/2024 8:56 AM PROJECT ANALYST) CHOLESTEROL 130 <200 MG/DL 08/22/2024 4:12 PM PROJECT ANALYST [facility] TRIGLYCERIDES 52 <150 MG/DL 08/22/2024 4:12 PM PROJECT ANALYST [facility] HDL 63 >40 MG/DL 08/22/2024 4:12 PM PROJECT ANALYST [facility] LDL-C 57 <100 MG/DL 08/22/2024 4:12 PM PROJECT ANALYST [facility] VLDL CALCULATION 10 5 - 28 MG/DL 08/22/2024 4:12 PM PROJECT ANALYST [facility] CHOL/HDL RATIO 2.1 0.0 - 4.0 08/22/2024 4:12 PM PROJECT ANALYST [facility] LDL/HDL 0.9 0.41 - 2.13 08/22/2024 4:12 PM PROJECT ANALYST [facility] NON HDL CHOLESTEROL 67 <140 MG/DL 08/22/2024 4:12 PM PROJECT ANALYST [facility] 08/22/2024 8:56 AM PROJECT ANALYST Madisyn Delgado COTTON CLEANER LABORATORY Final Res ult Performing Organization Address [facility]/ZIP Co de Phone Number [facility] [address] [place] [address], [place] [phone] * A1C (BACK OFFICE) (08/22/2024) HGB A1C 12.3 % [address], [place] 08/22/2024 Madisyn Delgado COTTON CLEANER LABORATORY Final Res ult Performing Organization Address [facility]/ZIP Co de Phone Number [address] [place] [address] [place] [address], [place] [phone] * HEPATITIS C ANTIBODY (08/23/2023 9:31 AM PROJECT ANALYST) HEPATITIS C AB NON-REACTI VE NON-REACT BETH 08/23/2023 7:31 PM PROJECT ANALYST [facility] Comment: ANTIBODIES TO HCV NOT DETECTED. DOES NOT EXCLUDE THE POSSIBILITY OF EXPOSURE TO HCV. 08/23/2023 9:31 AM PROJECT ANALYST us Madisyn Delgado NP LABORATORY Final Res ult [facility] [address] [place] [address], [place] [phone] [id number] * MG DIAG ADD VIEW W ALESSANDRA [...] dominant mass. Right axilla without gross abnormality. Gauri Owen MD MAMMO Final Resul t from Last 3 Months or Most Recently Relevant to Health Maintenance Insurance [employer] [facility] [employer] [facility] Advance Directives Documents on File Type Date Recorded Patient Cigar Machine Feeder Expl anation Advance Directives and Living Will [...] 6:41 PM 04/24/2020 4:34 PM Care Teams Valve Inserter Relationship Specialty Start Date End Date Madisyn Delgado NP [address] [place] [address] PCP - General NURSE PRACTITIONER 08/23/23 Shakeel Plaza MD [address] [address] Consulting Physician CARDIOVASCULAR DISEASE 09/03/21
--- OUTSIDE RECORDS SUMMARY | 2025-01-04 16:05 | XMS_ITS | Encounter Summary ---
Author Organization [facility] Address [address] [place] [address] Phone Care Team Providers Care Detective Sergeant Name Role Phone Sammi Meadows APRN, CNP Primary Care Provid er Ileana Caceres MD Unavailable [phone] Flakito Carr MD Unavailable [phone] Sammi Meadows APRN, CNP Primary Care Provid er Encounter Details Date Type Department Care Team (Late st Contact Info) Description 12/01/2020 Telephone [facility] [address] [place] [address] Flakito Carr MD [address] [address] Social History Tobacco Use Types [...] Master's degree (e.g., MATEO, , Jaiden, MEd, PRESS READER, LEVI) 09/10/2020 Sexually Active Control Partners Comments Not Currently Comments No Sex and Gender Information Value Date Recorded Sex Assigned at Not on file Legal Sex Female 2:05 PM ADMISSION NURSE Gender Identity Not on file Sexual Orientation Not on file 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 Erwin to be seen at the [place] office. documented in this encounter Plan of Treatment Not on file documented as of this encounter Visit Diagnoses Not on filedocumented in this encounter Additional Health Concerns Assessment Noted Time PHQ-9 Depression Total Score: 1 09/10/19 21 10:13 AM ADMISSION NURSE documented as of this encounter Care Teams Detective Sergeant Relationship Specialty Start Date End Date Sammi Meadows APRN LANDING SIGNAL OFFICER PCP - General Advanced Practice Nurse 08/25/20 02/03/22 Sammi Meadows APRN LANDING SIGNAL OFFICER [address] [place] [address] PCP - General Advanced Practice Nurse 03/15/22 Ileana Caceres MD [address] [address] Referring Provider Colon & Rectal Surgery 08/25/20 Flakito Carr MD [address] [place] [id number] Consulting Physician Oncology 08/25/20 documented as of this encounter
--- OUTSIDE RECORDS SUMMARY | 2025-01-04 16:05 | XMS_ITS | Continuity of Care Document ---
Author Organization [facility] Address [address] [place] [address] Phone Care Team Providers Care Design Inserter Name Role Phone Matthew Gold DO Unavailable Unavailable Advance Directives Directive Yes / No Effective Date File Name No Information Encounters Encounter Description Practice Location Reason(s) For Visit Diagnoses Date Provider Providers Copied on Encounter [facility], [address], [place], [place], [id number], [place] tel:[phone] [facility] No Information Asfi Leigh. [address] [place], [address], [place]. tel: [phone] Family History Family Member Type Diagnosis Age At Onset No Information Payers Payer name Insurance type Covered republican ID Authoriza tion(s) No Information Social History [...]
--- OUTSIDE RECORDS SUMMARY | 2025-01-04 16:06 | XMS_ITS | Continuity of Care Document ---
Author Organization [facility] Address [address] [place] [address] Phone Care Team Providers Care Recycler Forklift Driver Truck Driver Name Role Phone Matthew Gold DO Unavailable Unavailable Advance Directives Directive Yes / No Effective Date File Name No Information Encounters Encounter Description Practice Location Reason(s) For Visit Diagnoses Date Provider Providers Copied on Encounter [facility], [address], [place], [place], [id number], [place] tel:[phone] [facility] No Information Asif Leigh. [address] [place], [address], [place]. tel: [phone] Family History Family Member Type Diagnosis Age At Onset No Information Payers Payer name Insurance type Covered green party ID Authoriza tion(s) No Information Social [...]
[2025-01-04 16:13] VITALS: BP 194/78; PULSE 62; RESP 20; TEMP 36.9; O2SAT 96
--- NOTE | 2025-01-04 16:44 | ECG_ITS ---
Test Date: 2025-01-04 16:37:31 Measurements Intervals [place] Rate: 64 P: 75 [place]: 207 QRS: 49 QRSD: 96 T: -9 QT: 444 QTc: 460 Interpretive Statements SINUS RHYTHM POOR R-WAVE PROGRESSION, CANNOT RULE OUT PREVIOUS ANTEROSEPTAL INFARCTION NONSPECIFIC T-WAVE ABNORMALITY ABNORMAL ECG No previous ECG available for comparison Electronically Signed On 01-05-2025 15:33:55 CDT by Kar El M.D.
== END 2025-01-04 16:45 | disposition home or self-care (01) ==
PROVIDERS: Emergency Provider Nurse Practitioner Family; PCP Nurse Practitioner
DX: R60.0 Localized edema (principal); E11.9 Type 2 diabetes mellitus without complications; I10 Essential (primary) hypertension; I20.9 Angina pectoris, unspecified; I48.91 Unspecified atrial fibrillation
CPT/HCPCS: 93005; 99213; G0463